=== PATIENT | male | born 1960 | race Caucasian/White ===

== ENCOUNTER 2019-05-03 20:41 | Inpatient (IN) ==
--- OUTSIDE RECORDS SUMMARY | 2019-05-03 20:43 | External Medical Summary | Continuity of Care Document ---
:1960 Author Name Wilver Whitney Address Unavailable Unavailable , Care Team Providers Name Role Phone Unavailable Unavailable Unavailable Nahomy LYONS Unavailable Unavailable Problems Active medical history not documented Allergies and Adverse Reactions Allergy history not documented Medications Medications not documented Procedures Procedures not documented Immunizations Immunizations not documented Plan of Treatment Planned Observations Planned Goals not documented Results No Known Results Results not documented
[2019-05-03] MEDS ORDERED: SODIUM CHLORIDE 0.9% 1000ML 1,000 ML IV ONE (21:58)
[2019-05-03 22:42] LABS: Albumin Level 3.5 gm/dl (3.4-5.0); BUN Creatinine Ratio 16.9 (10-20); Calcium 9.3 mg/dl (8.5-10.1); Creatinine Clr Calc Pharmacy 88.8 ml/min; Est GFR (Non-African American) 77.7; Potassium 4.1 mmol/L (3.5-5.1)
[2019-05-03 22:45] LABS: Albumin Globulin Ratio 1.4 (0.9-2); Bilirubin,Total 0.7 mg/dl (0.2-1); Globulin 2.6 gm/dl (2.5-4.0); Total Protein 6.1 gm/dl (6.4-8.2)
--- NOTE | 2019-05-03 22:49 | XRay Report ---
XR chest 1V portable HISTORY: 59 years-old Male fever, chemo pt acute fever with chest pain. History of lymphoma. COMPARISON: Chest radiograph 09/23/2014, CT abdomen and pelvis 11/27/2018 TECHNIQUE: Portable AP view of the chest FINDINGS: Cardiac silhouette is within normal limits. There is mild bilateral hilar prominence. Right internal jugular Jgajic-v-Eciw catheter noted. Linear subsegmental left basilar atelectasis. No pneumothorax, pleural effusion, focal airspace consolidation or overt pulmonary edema. Bones of the chest appear gr ossly intact. IMPRESSION: No acute process. The above report was generated using voice recognition software. It may contain grammatical, syntax o r spelling errors. Electronically signed by: Darin Hugo M.D. 05/03/2019 10:47 PM
[2019-05-03 23:47] LABS: Appearance Urine Clear (Clear); Bilirubin Urine Negative (Negative); Blood Urine Negative (Negative); Color Urine Yellow; Glucose Urine UA Negative (Negative); Ketones Urine Negative (Negative); Leukocyte Esterase Urine Negative (Negative); Nitrite Urine Negative (Negative); Protein Urine Negative (Negative); Specific Gravity Urine 1.015 (1.000-1.030); Urobilinogen Urine Negative (Negative)
[2019-05-04 00:01] LABS: Dohle Bodies 3+; Giant Platelets 2+; Hematocrit (blood only) 24.8 % (42-52); Hemoglobin 8.4 g/dL (14.0-18.0); Mean Corpuscular Hgb Conc 33.9 g/dL (32-36); Mean Corpuscular Volume 83.8 fL (80-100); Mean Platelet Volume 9.4 fL (7.4-10.4); Nucleated RBC # (auto) 0.15 K/uL (0-0); Nucleated RBC % (auto) 19.1 %; Platelet Count 73 K/uL (130-400); Platelet Estimate Decreased (Normal); Polychromasia 1+; RDW Coefficient of Variation 18.2 % (11.5-14.5); RDW Standard Deviation 55.5 fL (36.4-46.3); Red Blood Count 2.96 M/uL (4.7-6.1); Tear Drop Cells 2+; White Blood Count 0.77 K/uL (4.8-10.8)
[2019-05-04 00:05] LABS: ALC (manual) 0.32 K/uL (1.2-3.4); Blast # (manual) 0.11 K/uL (0-0); Blast Cells % (manual) 13.9 %; Eosinophils # (manual) 0.01 K/uL (0-0.5); Eosinophils % (manual) 0.9 %; Lymphocytes # (manual) 0.32 K/uL (1.2-3.4); Lymphocytes % (manual) 41.8 %; Metamyelocytes # (manual) 0.01 K/uL (0-0); Metamyelocytes % (manual) 0.9 %; Monocytes # (manual) 0.15 K/uL (0.11-0.59); Monocytes % (manual) 19.4 %; Promyelocytes # (manual) 0.09 K/uL (0-0); Promyelocytes % (manual) 11.1 %
[2019-05-04] MEDS ORDERED: CEFEPIME 2,000 MG/20 ML VIAL IV STA (00:19)
--- NOTE | 2019-05-04 00:45 | Emergency Department Note ---
History of Present Illness General Chief complaint: Fever Stated complaint: FEVER, CHEMO PT Source: patient Mode of arrival: ambulatory Limitations: no limitations History of Present Illness Maximum Pain Intensity: 4 This patient is a 59-year-old male who presents to the emergency department complaining of a fever. The patient states that he is currently being treated for lymphoma and finished his last cycle of chemotherapy 7 days ago. He states that today, he has been tired but attributed this to not sleeping last night. He states that 2 hours prior to arrival, he began to feel achiness throughout his joints, mild abdominal discomfort and a mild headache. His checked his temperature and it was initially 100.8 F then increased to 101.4 F. He was given 1 g of Tylenol. Patient states he is being treated for diffuse large B- cell lymphoma by oncology at [facility] in [place]. He does state he received Neulasta last week. Patient states he is actually feeling better at this time. He denies any recent urinary symptoms, or cough. He has some shortness of breath but states that this has been stable for him. Home Medications Home Medications Medication Instructions Recorded Confirmed Type acetaminophen [Tylenol Extra 1,000 mg PO UD 11/27/18 05/03/19 History Strength] acyclovir [Zovirax] 400 mg PO BID 05/03/19 05/03/19 History allopurinol [Zyloprim] 300 mg PO DAILY 05/03/19 05/03/19 History fluconazole [Diflucan] 200 mg PO UD 05/03/19 05/03/19 History ondansetron HCl 8 mg PO UD PRN 05/03/19 05/03/19 History pantoprazole [Protonix] 40 mg PO DAILY 05/03/19 05/03/19 History prochlorperazine maleate 10 mg PO Q6 PRN 05/03/19 05/03/19 History [Compazine] sulfamethoxazole-trimethoprim 1 tab PO DAILY 05/03/19 05/03/19 History [Bactrim DS] tamsulosin [Flomax] 0.4 mg PO HS 05/03/19 05/03/19 History Allergies Allergy/AdvReac Type Severity Reaction Status Date / Time ADHESIVE Allergy Unknown d Uncoded 05/03/19 23:16 CAT,DOGS,POLLEN,DANDER Allergy Unknown Seasonal Uncoded 05/03/19 23:16 Past Med/Surg History Medical History Lymphoma (Chronic) DLBC Colon polyps (Resolved) Family History Other No pertinent family history in first degree relatives Social History Preferred Language: Irish Communication Ability: Effective Correctional Casework Specialist Required: No Beliefs That Will Affect Care: None Current Living Situation: Spouse Other Information That Helps Us Care for You: No Feels Safe at Home: Yes Safety Concerns: Feels Safe At This Time Smoking Status: Never smoker Do You Dip or Chew Tobacco: No Second Hand Exposure: No Tobacco Cessation Education Requested by Patient: No Hx Alcohol Use: Yes Alcohol type: other Hx Substance Use: No Review of Systems A total of 10 systems reviewed and were otherwise negative Physical Exam Vital Signs Vital Signs - 24 hr 05/03/19 20:43 05/03/19 22:08 05/03/19 23:18 Temperature 37.1 C 36.4 C L Temperature Source Oral Oral Sepsis Recent Fever Within 48 Hours Yes Sepsis New/Unexplained Change in Mental Status No Sepsis Action Taken by Nursing No Action Required Pulse Rate 106 H Pulse Rate [Apical] 97 H 85 Pulse Rhythm [Apical] Regular Pulse Strength [Apical] Normal Respiratory Rate 18 16 19 Respiratory Effort / Characteristics Non-Labored Respiratory Depth Normal Respiratory Pattern Regular Blood Pressure 113/68 Blood Pressure [Right Arm] 117/69 111/66 Blood Pressure Mean 83 Blood Pressure Mean [Right Arm] 85 81 Blood Pressure Position [Right Arm] Lying Pulse Oximetry 97 93 96 Oxygen Delivery Method Room Air Room Air 05/04/19 01:01 05/04/19 01:03 Temperature 36.4 C L Temperature Source Oral Sepsis Recent Fever Within 48 Hours Sepsis New/Unexplained Change in Mental Status Sepsis Action Taken by Nursing Pulse Rate Pulse Rate [Apical] 96 H Pulse Rhythm [Apical] Pulse Strength [Apical] Respiratory Rate 19 Respiratory Effort / Characteristics Respiratory Depth Respiratory Pattern Blood Pressure Blood Pressure [Right Arm] 114/58 L Blood Pressure Mean Blood Pressure Mean [Right Arm] 76 Blood Pressure Position [Right Arm] Pulse Oximetry 94 Oxygen Delivery Method Room Air VITALS: Vitals are noted on the nurse's note and reviewed by myself. Vital signs stable. GENERAL: This is a 59-year-old male, chronically ill-appearing but in no acute distress. SKIN: The skin was without rashes. EARS: External auditory canals clear, tympanic membranes pearly davis without erythema or effusion bilaterally. EYES: Pupils equal round and reactive to light and accommodation. Conjunctivae without injection, sclerae without icterus. MOUTH: Mucous membranes moist. Tonsils are not enlarged. Pharynx without erythema or exudate. NECK: Supple without nuchal rigidity. No lymphadenopathy. HEART: Regular rate and rhythm without murmurs gallops or rubs. LUNGS: Clear to auscultation bilaterally without wheezes, rales or rhonchi. ABDOMEN: Positive bowel sounds x 4. Soft, minimal generalized tenderness to palpation. No guarding or rebound tenderness. NEURO: Patient was alert and oriented to person place and time. Course Reevaluation(s) Reevaluation #1: Patient was reevaluated and findings discussed. He is agreeable to admission. Consultations Consultation #1: Dr. Torres - pathology I spoke with the pathologist, Dr. Knox, who was concerned that the patient had a large amount of blasts circulating in the blood as well as promyelocytes. She is unsure if this is a response to the Neulasta versus acute promyelocytic leukemia. Consultation #2: Dr. Wilson - hematology [facility] Dr. Wilson recommends admission for the neutropenic fever and feels that the blasts are likely a response to the Neulasta. He agrees with giving cefepime. Consultation #3: Dr. Cutler - [facility] [place] Administered Medications Vancomycin HCl 2,500 mg/ (Sodium Chloride) 550 mls @ 200 mls/hr IV ONE ONE Stop: 05/04/19 07:14 Last Admin: 05/04/19 05:13 Dose: 200 mls/hr Documented by: [id number] Discontinued Medications Sodium Chloride (Nss 1000ml) 1,000 mls @ 999 mls/hr IV .Q1H1M ONE Stop: 05/03/19 22:58 Last Infusion: 05/03/19 23:10 Dose: 0 mls/hr Documented by: [id number] Admin: 05/03/19 22:09 Dose: 999 mls/hr Documented by: [id number] Cefepime HCl (Maxipime) 2,000 mg in 20 mls @ 5 mls/min IV NOW STA; Protocol Stop: 05/04/19 00:22 Last Admin: 05/04/19 00:55 Dose: 5 mls/min Documented by: [id number] Piperacillin Sod/Tazobactam (Sod 4.5 gm/ Dextrose) 120 mls @ 235 mls/hr IV ONE ONE; Protocol Stop: 05/04/19 04:40 Last Infusion: 05/04/19 05:12 Dose: 0 mls/hr Documented by: [id number] Admin: 05/04/19 04:45 Dose: 235 mls/hr Documented by: [id number] Medical Decision Making Differential Diagnosis Differential diagnosis includes neutropenic fever, sepsis, UTI, pneumonia, among others. Home Medications Current Medication List: was personally reviewed by me Laboratory Data Attestation: I reviewed the patient's lab results. Result diagrams: 05/03/19 22:14 05/03/19 22:14 Lab Results 05/03/19 05/03/19 05/03/19 Range/Units 22:14 22:14 22:14 WBC 0.77 L* (4.8-10.8) K/uL RBC 2.96 L (4.7-6.1) M/uL Hgb 8.4 L (14.0-18.0) g/dL Hct 24.8 L (42-52) % MCV 83.8 (80-100) fL MCH 28.4 (25-34) pg MCHC 33.9 (32-36) g/dL RDW Std Deviation 55.5 H (36.4-46.3) fL RDW Coeff of Svitlana 18.2 H (11.5-14.5) % Plt Count 73 L (130-400) K/uL MPV 9.4 (7.4-10.4) fL Absolute Nucleated RBC 0.15 H (0-0) K/uL Nucleated RBC % (auto) 19.1 % Neutrophils % (Manual) 12.0 % Lymphocytes % (Manual) 41.8 % Monocytes % (Manual) 19.4 % Eosinophils % (Manual) 0.9 % Metamyelocytes % (Man) 0.9 % Promyelocytes % (Man) 11.1 % Blast Cells % (Manual) 13.9 % Neutrophils # (Manual) 0.09 L (1.4-6.5) K/uL Total Absolute Neuts 0.09 L* (1.4-6.5) K/uL Lymphocytes # (Manual) 0.32 L (1.2-3.4) K/uL Total Abs Lymphocytes 0.32 L (1.2-3.4) K/uL Monocytes # (Manual) 0.15 (0.11-0.59) K/uL Eosinophils # (Manual) 0.01 (0-0.5) K/uL Metamyelocytes # (Man) 0.01 H (0-0) K/uL Promyelocytes # (Man) 0.09 H (0-0) K/uL Blast Cells # (Man) 0.11 H (0-0) K/uL Blood Smear Review Dohle Bodies 3+ Platelet Estimate Decreased L (Normal) Giant Platelets 2+ Polychromasia 1+ Tear Drop Cells 2+ Sodium 140 (136-145) mmol/L Potassium 4.1 (3.5-5.1) mmol/L Chloride 108 H (98-107) mmol/L Carbon Dioxide 24 (21-32) mmol/L Anion Gap 8.0 (3-11) BUN 18 (7-18) mg/dl Creatinine 1.04 (0.6-1.4) mg/dl Est Cr Clr Drug Dosing 88.8 ml/min Est GFR ( Amer) 90.0 Est GFR (Non-Af Amer) 77.7 BUN/Creatinine Ratio 16.9 (10-20) Glucose 111 H (70-99) mg/dl Lactate 2.2 H* (0.4-2.0) mmol/L Calcium 9.3 (8.5-10.1) mg/dl Total Bilirubin 0.7 (0.2-1) mg/dl AST 18 (15-37) U/L ALT 33 (12-78) U/L Alkaline Phosphatase 102 (45-117) U/L Total Protein 6.1 L (6.4-8.2) gm/dl Albumin 3.5 (3.4-5.0) gm/dl Globulin 2.6 (2.5-4.0) gm/dl Albumin/Globulin Ratio 1.4 (0.9-2) Urine Color Urine Appearance (Clear) Urine pH (4.5-7.5) Ur Specific [place] (1.000-1.030) Urine Protein (Negative) Urine Glucose (UA) (Negative) Urine Ketones (Negative) Urine Blood (Negative) Urine Nitrite (Negative) Urine Bilirubin (Negative) Urine Urobilinogen (Negative) Ur Leukocyte Esterase (Negative) 05/03/19 Range/Units 23:26 WBC (4.8-10.8) K/uL RBC (4.7-6.1) M/uL Hgb (14.0-18.0) g/dL Hct (42-52) % MCV (80-100) fL MCH (25-34) pg MCHC (32-36) g/dL RDW Std Deviation (36.4-46.3) fL RDW Coeff of Svitlana (11.5-14.5) % Plt Count (130-400) K/uL MPV (7.4-10.4) fL Absolute Nucleated RBC (0-0) K/uL Nucleated RBC % (auto) % Neutrophils % (Manual) % Lymphocytes % (Manual) % Monocytes % (Manual) % Eosinophils % (Manual) % Metamyelocytes % (Man) % Promyelocytes % (Man) % Blast Cells % (Manual) % Neutrophils # (Manual) (1.4-6.5) K/uL Total Absolute Neuts (1.4-6.5) K/uL Lymphocytes # (Manual) (1.2-3.4) K/uL Total Abs Lymphocytes (1.2-3.4) K/uL Monocytes # (Manual) (0.11-0.59) K/uL Eosinophils # (Manual) (0-0.5) K/uL Metamyelocytes # (Man) (0-0) K/uL Promyelocytes # (Man) (0-0) K/uL Blast Cells # (Man) (0-0) K/uL Blood Smear Review Dohle Bodies Platelet Estimate (Normal) Giant Platelets Polychromasia Tear Drop Cells Sodium (136-145) mmol/L Potassium (3.5-5.1) mmol/L Chloride (98-107) mmol/L Carbon Dioxide (21-32) mmol/L Anion Gap (3-11) BUN (7-18) mg/dl Creatinine (0.6-1.4) mg/dl Est Cr Clr Drug Dosing ml/min Est GFR ( Amer) Est GFR (Non-Af Amer) BUN/Creatinine Ratio (10-20) Glucose (70-99) mg/dl Lactate (0.4-2.0) mmol/L Calcium (8.5-10.1) mg/dl Total Bilirubin (0.2-1) mg/dl AST (15-37) U/L ALT (12-78) U/L Alkaline Phosphatase (45-117) U/L Total Protein (6.4-8.2) gm/dl Albumin (3.4-5.0) gm/dl Globulin (2.5-4.0) gm/dl Albumin/Globulin Ratio (0.9-2) Urine Color Yellow Urine Appearance Clear (Clear) Urine pH 8.0 H (4.5-7.5) Ur Specific [place] 1.015 (1.000-1.030) Urine Protein Negative (Negative) Urine Glucose (UA) Negative (Negative) Urine Ketones Negative (Negative) Urine Blood Negative (Negative) Urine Nitrite Negative (Negative) Urine Bilirubin Negative (Negative) Urine Urobilinogen Negative (Negative) Ur Leukocyte Esterase Negative (Negative) Imaging Data Attestation: I personally reviewed and interpreted this imaging study as follows: Radiologist's Impression: XR chest 1V portable HISTORY: 59 years-old Male fever, chemo pt acute fever with chest pain. History of lymphoma. COMPARISON: Chest radiograph 09/23/2014, CT abdomen and pelvis 11/27/2018 TECHNIQUE: Portable AP view of the chest FINDINGS: Cardiac silhouette is within normal limits. There is mild bilateral hilar prominence. Right internal jugular Yhyxle-w-Cika catheter noted. Linear subsegmental left basilar atelectasis. No pneumothorax, pleural effusion, focal airspace consolidation or overt pulmonary edema. Bones of the chest appear grossly intact. IMPRESSION: No acute process. Blood Pressure Blood Pressure Findings: Normal blood pressure Blood Pressure Disposition: did not require urgent referral MDM Narrative The patient is a 59-year-old male who presents today complaining of a fever. Patient recently finished his last cycle of chemotherapy for lymphoma. Patient had reported fever of 101.4 F prior to arrival here, although of note he is now afebrile. He did take a dose of Tylenol prior to arrival here. Labs revealed a white blood cell count of 0.77, ANC 0.09. I did speak with the pathologist, who reviewed the peripheral smear and noted that there were 13% blasts as well as promyelocytes. She was unsure if this was a response to Neulasta versus acute promyelocytic leukemia. I did speak with the patient's public health professor at [facility] in [place] who felt this was likely a response to the Neulasta and recommended continuing to follow labs. Patient was given a dose of cefepime here and admitted for the neutropenic fever. [facility] and [facility] The patient's case was discussed with Dr. Leo, who agreed with my evaluation and treatment plan. Impression & Plan Neutropenic fever Discharge Plan Visit Data *Final* Discharge Date/Time: 05/04/19 04:05 Chief Complaint: Fever Stated Complaint: FEVER, CHEMO PT ED Provider: Porfirio Leo ED Midlevel Provider: Liberty Bennett Discharge Problem: Neutropenic fever Patient Disposition: Admitted As Inpatient Discharge Instructions Interventions: ED Discharge Assessment Last Done: 05/04/19 04:05
--- NOTE | 2019-05-04 02:39 | History & Physical Report ---
Date of Service May 04, 2019 Assessment & Plan (1) Neutropenic fever: Neutropenic fever/pancytopenia due to chemotherapy/diffuse large B-cell lymphoma- Neutropenic precautions. Broad-spectrum antibody coverage with vancomycin IV and Zosyn IV. Continue prophylaxis with acyclovir 400 mg p.o. twice daily, allopurinol 300 mg p.o. daily, fluconazole 20 mg p.o. daily. Hold Bactrim DS. Case was discussed by ED with oncology at [facility], will continue to communicate throughout admission. Follow all cultures. Continue IV fluids Present on Admission?: Yes (2) Pancytopenia due to chemotherapy: See above Follow serial laboratories. Present on Admission?: Yes (3) BPH (benign prostatic hyperplasia): Continue tamsulosin 0.4 mg at bedtime Present on Admission?: Yes (4) GERD (gastroesophageal reflux disease): Continue pantoprazole 40 mg daily Present on Admission?: Yes History of Present Illness Chief Complaint: The patient presents to the emergency department with complaint of a fever after finishing his last cycle of chemotherapy 7 days ago. Primary Care Provider: Ragini Curry MD The patient is a 59-year-old male with a past medical history significant for diffuse large B-cell lymphoma, undergoing chemotherapy at [facility] in [place], having finished his last cycle of chemotherapy 7 days ago. He developed fatigue today, and then generalized joint achiness with abdominal discomfort and a mild headache. His checked his temperature, and was found to be 100.8 F, and then increased to 101.4 F, was given 1 g of Tylenol, then presents to the emergency department for assessment. Allergies Allergy/AdvReac Type Severity Reaction Status Date / Time ADHESIVE Allergy Unknown d Uncoded 05/03/19 23:16 CAT,DOGS,POLLEN,DANDER Allergy Unknown Seasonal Uncoded 05/03/19 23:16 Home Medications Home Medications Medication Instructions Recorded Confirmed Type acetaminophen [Tylenol Extra 1,000 mg PO UD 11/27/18 05/03/19 History Strength] acyclovir [Zovirax] 400 mg PO BID 05/03/19 05/03/19 History allopurinol [Zyloprim] 300 mg PO DAILY 05/03/19 05/03/19 History fluconazole [Diflucan] 200 mg PO UD 05/03/19 05/03/19 History ondansetron HCl 8 mg PO UD PRN 05/03/19 05/03/19 History pantoprazole [Protonix] 40 mg PO DAILY 05/03/19 05/03/19 History prochlorperazine maleate 10 mg PO Q6 PRN 05/03/19 05/03/19 History [Compazine] sulfamethoxazole-trimethoprim 1 tab PO DAILY 05/03/19 05/03/19 History [Bactrim DS] tamsulosin [Flomax] 0.4 mg PO HS 05/03/19 05/03/19 History Past Med/Surg History Medical History Lymphoma (Chronic) DLBC Colon polyps (Resolved) Family History Other No pertinent family history in first degree relatives Social History Preferred Language: [place]ican Feels Safe at Home: Yes Smoking Status: Never smoker Review of Systems Review of Systems: The patient denies chest pain, palpitations, shortness of breath, dyspnea on exertion, cough, lower extremity swelling, sore throat, sweats, nausea, vomiting, diarrhea , constipation, blood in urine or stool, dysuria, urinary frequency or urgency, memory loss, loss of consciousness, rash, abnormal bruising or bleeding, imbalance, focal weakness, numbness or tingling in arms or legs, or night sweats. The review of systems is otherwise negative other than for that already noted above, and at least 10 systems have been reviewed. Physical Exam Physical Exam: The patient is awake, alert and oriented 3, normocephalic and atraumatic, lying in bed and in no acute distress. HEENT--PERRL, EOMI, mucous membranes and oropharynx dry. Neck--supple. No JVD. No bruits. Thyroid normal, trachea midline, no adenopathy. Heart--normal S1 and S2. No murmurs, rubs or gallops. Lungs--decreased breath sounds throughout. Abdomen--normal bowel sounds and soft. Nontender. Nondistended. Extremities--no cyanosis or clubbing. No edema. There are good distal pulses b/l. Dermatologic--normal skin turgor, normal color, no abnormal lymph nodes, no rash. Neurologic--cranial nerves II through XII grossly intact. Rheumatologic--normal range of motion. Psychiatric--very fatigued. Results & Data Vital Signs (Past 12 Hours) Vital Signs Temp Pulse Pulse Resp BP BP Pulse Ox 05/04/19 02:31 78 16 123/76 98 05/04/19 01:03 96 H 19 114/58 L 94 05/04/19 01:01 97.5 F L 05/03/19 23:18 97.5 F L 85 19 111/66 96 05/03/19 22:08 97 H 16 117/69 93 05/03/19 20:43 98.8 F 106 H 18 113/68 97 Laboratory Results Laboratory Results WBC 0.77 K/uL (4.8-10.8) L* 05/03/19 22:14 RBC 2.96 M/uL (4.7-6.1) L 05/03/19 22:14 Hgb 8.4 g/dL (14.0-18.0) L 05/03/19 22:14 Hct 24.8 % (42-52) L 05/03/19 22:14 MCV 83.8 fL (80-100) 05/03/19 22:14 MCH 28.4 pg (25-34) 05/03/19 22:14 MCHC 33.9 g/dL (32-36) 05/03/19 22:14 RDW Std Deviation 55.5 fL (36.4-46.3) H 05/03/19 22:14 RDW Coeff of Svitlana 18.2 % (11.5-14.5) H 05/03/19 22:14 Plt Count 73 K/uL (130-400) L 05/03/19 22:14 MPV 9.4 fL (7.4-10.4) 05/03/19 22:14 Absolute Nucleated RBC 0.15 K/uL (0-0) H 05/03/19 22:14 Nucleated RBC % (auto) 19.1 % 05/03/19 22:14 Neutrophils % (Manual) 12.0 % 05/03/19 22:14 Lymphocytes % (Manual) 41.8 % 05/03/19 22:14 Monocytes % (Manual) 19.4 % 05/03/19 22:14 Eosinophils % (Manual) 0.9 % 05/03/19 22:14 Metamyelocytes % (Man) 0.9 % 05/03/19 22:14 Promyelocytes % (Man) 11.1 % 05/03/19 22:14 Blast Cells % (Manual) 13.9 % 05/03/19 22:14 Neutrophils # (Manual) 0.09 K/uL (1.4-6.5) L 05/03/19 22:14 Total Absolute Neuts 0.09 K/uL (1.4-6.5) L* 05/03/19 22:14 Lymphocytes # (Manual) 0.32 K/uL (1.2-3.4) L 05/03/19 22:14 Total Abs Lymphocytes 0.32 K/uL (1.2-3.4) L 05/03/19 22:14 Monocytes # (Manual) 0.15 K/uL (0.11-0.59) 05/03/19 22:14 Eosinophils # (Manual) 0.01 K/uL (0-0.5) 05/03/19 22:14 Metamyelocytes # (Man) 0.01 K/uL (0-0) H 05/03/19 22:14 Promyelocytes # (Man) 0.09 K/uL (0-0) H 05/03/19 22:14 Blast Cells # (Man) 0.11 K/uL (0-0) H 05/03/19 22:14 Blood Smear Review 05/03/19 22:14 Dohle Bodies 3+ 05/03/19 22:14 Platelet Estimate Decreased (Normal) L 05/03/19 22:14 Giant Platelets 2+ 05/03/19 22:14 Polychromasia 1+ 05/03/19 22:14 Tear Drop Cells 2+ 05/03/19 22:14 Sodium 140 mmol/L (136-145) 05/03/19 22:14 Potassium 4.1 mmol/L (3.5-5.1) 05/03/19 22:14 Chloride 108 mmol/L (98-107) H 05/03/19 22:14 Carbon Dioxide 24 mmol/L (21-32) 05/03/19 22:14 Anion Gap 8.0 (3-11) 05/03/19 22:14 BUN 18 mg/dl (7-18) 05/03/19 22:14 Creatinine 1.04 mg/dl (0.6-1.4) 05/03/19 22:14 Est Cr Clr Drug Dosing 88.8 ml/min 05/03/19 22:14 Est GFR ( Amer) 90.0 05/03/19 22:14 Est GFR (Non-Af Amer) 77.7 05/03/19 22:14 BUN/Creatinine Ratio 16.9 (10-20) 05/03/19 22:14 Glucose 111 mg/dl (70-99) H 05/03/19 22:14 Lactate 2.2 mmol/L (0.4-2.0) H* 05/03/19 22:14 Calcium 9.3 mg/dl (8.5-10.1) 05/03/19 22:14 Total Bilirubin 0.7 mg/dl (0.2-1) 05/03/19 22:14 AST 18 U/L (15-37) 05/03/19 22:14 ALT 33 U/L (12-78) 05/03/19 22:14 Alkaline Phosphatase 102 U/L (45-117) 05/03/19 22:14 Total Protein 6.1 gm/dl (6.4-8.2) L 05/03/19 22:14 Albumin 3.5 gm/dl (3.4-5.0) 05/03/19 22:14 Globulin 2.6 gm/dl (2.5-4.0) 05/03/19 22:14 Albumin/Globulin Ratio 1.4 (0.9-2) 05/03/19 22:14 Urine Color Yellow 05/03/19 23:26 Urine Appearance Clear (Clear) 05/03/19 23:26 Urine pH 8.0 (4.5-7.5) H 05/03/19 23:26 Ur Specific [place] 1.015 (1.000-1.030) 05/03/19 23:26 Urine Protein Negative (Negative) 05/03/19 23:26 Urine Glucose (UA) Negative (Negative) 05/03/19 23:26 Urine Ketones Negative (Negative) 05/03/19 23:26 Urine Blood Negative (Negative) 05/03/19 23:26 Urine Nitrite Negative (Negative) 05/03/19 23:26 Urine Bilirubin Negative (Negative) 05/03/19 23:26 Urine Urobilinogen Negative (Negative) 05/03/19 23:26 Ur Leukocyte Esterase Negative (Negative) 05/03/19 23:26 Diagnostic Findings [facility], [place] [phone] XRay Report Patient: JUSTIN WALKER Date: 05/03/19 MR#: [id number] Acct ID:[id number]: Date: 1960City Zip: [place] [address] Age: 59Location: ED Sex: M Room/Bed: Att Phy: Diagnosis: FEVER, CHEMO PT Kelsy Phy: PCP,NO Service Date: 05/03/19 Fam Phy: Interpreting Phy: Sandip Hugo Admit Phy: Ordering Phy: Liberty Bennett PA-C cc: ~ XR chest 1V portable HISTORY: 59 years-old Male fever, chemo pt acute fever with chest pain. History of lymphoma. COMPARISON: Chest radiograph 09/23/2014, CT abdomen and pelvis 11/27/2018 TECHNIQUE: Portable AP view of the chest FINDINGS: Cardiac silhouette is within normal limits. There is mild bilateral hilar prominence. Right internal jugular [id number]-[id number] catheter noted. Linear subsegmental left basilar atelectasis. No pneumothorax, pleural effusion, focal airspace consolidation or overt pulmonary edema. Bones of the chest appear grossly intact. IMPRESSION: No acute process. The above report was generated using voice recognition software. It may contain grammatical, syntax or spelling errors. Electronically signed by: Darin Hugo M.D. 05/03/2019 10:47 PM Dictated: [id number]/03/[id number] Transcribed: 05/03/192244 Code Status & VTE Plan Code Status Full code VTE Prophylaxis Plan VTE Prophylaxis will be ordered: Yes PG Care Time/CCT Total # of Minutes Spent Total Time Spent with Patient: Total time spent is greater than 50% in coordination of care (as documented) at patient's floor/unit and/or counseling patient:
[2019-05-04] MEDS ORDERED: VANCOMYCIN CONSULT ACTIVE PRN (04:10)
[2019-05-04] MEDS ORDERED: PIPERACILLIN/TAZOBACTAM 4.5 GM in DEXTROSE 5% 100 ML IV ONE (04:10)
[2019-05-04] MEDS ORDERED: ALUMINUM/MAGNESIUM SUSP 30 ML UDC PO PRN (04:10)
[2019-05-04] MEDS ORDERED: PROCHLORPERAZINE MALEATE 10 MG TAB PO PRN (04:10)
[2019-05-04] MEDS ORDERED: ONDANSETRON INJ 2 MG/ML 2 ML VIAL IV PRN (04:10)
[2019-05-04] MEDS ORDERED: ACETAMINOPHEN 325 MG TAB PO PRN (04:10)
[2019-05-04] MEDS ORDERED: VANCOMYCIN HCL 1,000 MG in SODIUM CHLORIDE 0.9% 250 ML IV SCH (04:10)
[2019-05-04] MEDS ORDERED: PIPERACILL/TAZOBAC CONSULT ACTIVE PRN (04:10)
[2019-05-04] MEDS ORDERED: ACETAMINOPHEN 1,000 MG/100 ML VIAL IV PRN (04:10)
[2019-05-04] MEDS ORDERED: MAGNESIUM HYDROXIDE SUSP 30 ML UDC PO PRN (04:10)
[2019-05-04] MEDS ORDERED: VANCOMYCIN HCL 2,250 MG in SODIUM CHLORIDE 0.9% 500 ML IV ONE (04:30)
[2019-05-04] MEDS ORDERED: VANCOMYCIN HCL 2,500 MG in SODIUM CHLORIDE 0.9% 500 ML IV ONE (04:30)
[2019-05-04] MEDS: PANTOprazole 40 MG TAB PO SCH (08:20)
[2019-05-04] MEDS: ALLOPURINOL 300 MG TAB PO SCH (08:20)
[2019-05-04] MEDS: ACYCLOVIR 200 MG CAP PO SCH ×2 (08:20→20:31)
[2019-05-04] MEDS: FLUCONAZOLE 100 MG TAB PO SCH (08:20)
[2019-05-04] MEDS ORDERED: PIPERACILLIN/TAZOBACTAM 4.5 GM in DEXTROSE 5% 100 ML IV SCH (10:00)
[2019-05-04 10:49] LABS: Hematocrit (blood only) 24.4 % (42-52); Hemoglobin 8.2 g/dL (14.0-18.0); Mean Corpuscular Hgb Conc 33.6 g/dL (32-36); Mean Corpuscular Volume 83.6 fL (80-100); RDW Coefficient of Variation 18.5 % (11.5-14.5); RDW Standard Deviation 56.7 fL (36.4-46.3); Red Blood Count 2.92 M/uL (4.7-6.1); White Blood Count 1.48 K/uL (4.8-10.8)
[2019-05-04 10:55] LABS: Mean Platelet Volume 9.5 fL (7.4-10.4); Platelet Count 67 K/uL (130-400)
[2019-05-04 11:05] LABS: BUN Creatinine Ratio 12.7 (10-20); Calcium 9.2 mg/dl (8.5-10.1); Creatinine Clr Calc Pharmacy 97.8 ml/min; Est GFR (African American) 101.7; Est GFR (Non-African American) 87.8; Phosphorus 4.1 mg/dl (2.5-4.9); Potassium 3.9 mmol/L (3.5-5.1)
[2019-05-04 11:46] LABS: Dohle Bodies 2+; Giant Platelets 3+; Polychromasia 1+; Tear Drop Cells 1+
--- NOTE | 2019-05-04 11:48 | Communication Note ---
Date of Service: May 04, 2019 Patient admitted this morning. Patient is feeling better, patient has no symptoms of cough, nausea, vomitiing, dysuria. Patient reports feeling back to his baseline. Patient was just admitted this AM. Lactic acid was also elevated. Will continue to check. Will continue IVF and antibiotics, will consult ID as well. Will await 24 hour period of patient being afebrile before discharging patient.
[2019-05-04 11:58] LABS: ALC (manual) 0.37 K/uL (1.2-3.4); Basophils # (manual) 0.04 K/uL (0-0.2); Blast # (manual) 0.04 K/uL (0-0); Eosinophils # (manual) 0.01 K/uL (0-0.5); Lymphocytes # (manual) 0.37 K/uL (1.2-3.4); Metamyelocytes # (manual) 0.12 K/uL (0-0); Monocytes # (manual) 0.31 K/uL (0.11-0.59); Myelocytes # (manual) 0.13 K/uL (0-0); Nucleated RBC # (auto) 0.16 K/uL (0-0); Nucleated RBC % (auto) 10.8 %; Promyelocytes # (manual) 0.24 K/uL (0-0)
[2019-05-04] MEDS: SODIUM CHLORIDE 0.9% 1000ML 1,000 ML IV SCH ×2 (11:58→22:19)
--- NOTE | 2019-05-04 14:53 | Infectious Disease Consult ---
Date of Consultation May 04, 2019 Assessment & Plan (1) Neutropenic fever: 59-year-old male with known B-cell lymphoma on chemotherapy now with neutropenic fever without localizing findings otherwise. Agree with IV antibiotics pending final culture results and hopefully recovery of white blood cell count. Will follow. History of Present Illness Reason for Consultation: Neutropenic fever Attending Physician: Marko Coates History of Present Illness 59-year-old male with known B-cell lymphoma on chemotherapy, typically with neutropenia second week of chemotherapy, now presents with 1 day history of fever and chills, and found to be significantly neutropenic. Has been started on IV Zosyn, blood cultures are negative to date. Patient feeling better today and currently afebrile. Denies any localizing complaints. No significant travel history. Does have daughter with respiratory tract infection last week. Allergies Allergy/AdvReac Type Severity Reaction Status Date / Time ADHESIVE Allergy Unknown d Uncoded 05/03/19 23:16 CAT,DOGS,POLLEN,DANDER Allergy Unknown Seasonal Uncoded 05/03/19 23:16 Home Medications Home Medications Medication Instructions Recorded Confirmed Type acetaminophen [Tylenol Extra 1,000 mg PO UD 11/27/18 05/03/19 History Strength] acyclovir [Zovirax] 400 mg PO BID 05/03/19 05/03/19 History allopurinol [Zyloprim] 300 mg PO DAILY 05/03/19 05/03/19 History fluconazole [Diflucan] 200 mg PO UD 05/03/19 05/03/19 History ondansetron HCl 8 mg PO UD PRN 05/03/19 05/03/19 History pantoprazole [Protonix] 40 mg PO DAILY 05/03/19 05/03/19 History prochlorperazine maleate 10 mg PO Q6 PRN 05/03/19 05/03/19 History [Compazine] sulfamethoxazole-trimethoprim 1 tab PO DAILY 05/03/19 05/03/19 History [Bactrim DS] tamsulosin [Flomax] 0.4 mg PO HS 05/03/19 05/03/19 History Patient History Medical History Lymphoma (Chronic) DLBC Colon polyps (Resolved) Family History Other No pertinent family history in first degree relatives Social History Preferred Language: Japanese Communication Ability: Effective 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 Required: No Beliefs That Will Affect Care: None Current Living Situation: Spouse Other Information That Helps Us Care for You: No Feels Safe at Home: Yes Safety Concerns: Feels Safe At This Time Smoking Status: Never smoker Do You Dip or Chew Tobacco: No Second Hand Exposure: No Tobacco Cessation Education Requested by Patient: No Hx Alcohol Use: Yes Alcohol type: other Hx Substance Use: No Review of Systems Review of Systems: All systems reviewed & are unremarkable except as noted in HPI & below Physical Exam Constitutional: WD/WN, vitals as above comfortable; no acute distress Eyes: PERRL, conjunctivae normal, anicteric sclerae ENMT: external ear and nose normal, oropharynx normal Neck: trachea midline, no thyromegaly neck nontender Respiratory: normal respiratory effort, lungs clear to auscultation normal percussion; does not use accessory muscles Cardiovascular: Rate/Rhythm: regular rate and regular rhythm Heart Sounds: normal S1 and normal S2; no gallop, no murmur and no cardiac rub Vessels: normal peripheral pulses; no JVD Gastrointestinal (Abdomen): normal bowel sounds, soft, nontender, no hepatosplenomegaly Musculoskeletal: no cyanosis or clubbing, extremities motor strength 5/5 Spine: thoracic spine normal to inspection and lumbar spine normal to inspection; no cervical spinal tenderness Skin: no rashes, warm and dry normal turgor; no lesions A port site appears without evidence of infection Neurologic: patellar DTR's 2+ bilat, sensation intact no focal motor def icits Psychiatric: A+Ox3, euthymic affect Orientation: cooperative Lymphatic: no cervical or axillary lymphadenopathy no inguinal lymphadenopathy Results & Data Vital Signs (Past 12 Hours) Vital Signs Temp Pulse Pulse Resp BP BP BP 05/04/19 10:55 36.7 C 82 18 118/79 05/04/19 07:36 36.5 C 78 18 125/76 05/04/19 04:22 36.6 C 84 16 124/84 05/04/19 04:05 75 16 130/81 05/04/19 03:32 36.5 C 85 20 122/83 Pulse Ox 05/04/19 10:55 98 05/04/19 07:36 97 05/04/19 04:22 97 05/04/19 04:05 97 05/04/19 03:32 95 Laboratory Results Short CBC 05/03/19 05/04/19 Range/Units 22:14 10:35 WBC 0.77 L* 1.48 L (4.8-10.8) K/uL Hgb 8.4 L 8.2 L (14.0-18.0) g/dL Hct 24.8 L 24.4 L (42-52) % Plt Count 73 L 67 L (130-400) K/uL BMP 05/03/19 05/04/19 22:14 10:35 Sodium 140 140 Potassium 4.1 3.9 Chloride 108 H 108 H Carbon Dioxide 24 24 BUN 18 12 Creatinine 1.04 0.94 Glucose 111 H 112 H Calcium 9.3 9.2 Liver Function 05/03/19 Range/Units 22:14 Total Bilirubin 0.7 (0.2-1) mg/dl AST 18 (15-37) U/L ALT 33 (12-78) U/L Alkaline Phosphatase 102 (45-117) U/L Albumin 3.5 (3.4-5.0) gm/dl Urine 05/03/19 Range/Units 23:26 Urine Color Yellow Urine Appearance Clear (Clear) Urine pH 8.0 H (4.5-7.5) Ur Specific [place] 1.015 (1.000-1.030) Urine Protein Negative (Negative) Urine Glucose (UA) Negative (Negative) Diagnostic Findings XR chest 1V portable HISTORY: 59 years-old Male fever, chemo pt acute fever with chest pain. History of lymphoma. COMPARISON: Chest radiograph 09/23/2014, CT abdomen and pelvis 11/27/2018 TECHNIQUE: Portable AP view of the chest FINDINGS: Cardiac silhouette is within normal limits. There is mild bilateral hilar prominence. Right internal jugular [id number] catheter noted. Linear subsegmental left basilar atelectasis. No pneumothorax, pleural effusion, focal airspace consolidation or overt pulmonary edema. Bones of the chest appear grossly intact. IMPRESSION: No acute process. The above report was generated using voice recognition software. It may contain grammatical, syntax or spelling errors. Electronically signed by: Darin Hugo M.D.
--- NOTE | 2019-05-04 15:55 | Pharmacy Report ---
Pharmacy Abx Initial Consult - Date of Service May 04, 2019 - Pharmacy Dosing Scope Date of Consult: 05/04/19 Consultation requested by: Dr. Cutler Pharmacy is consulted to initiate Vancomycin and Zosyn IV dosing therapy, order appropriate labs and adjust drug dose/frequency. - Subjective The patient is a 59 year old M admitted on 05/04/19 02:22. - Objective Height: 5 ft 10 in Weight: 97.3 kg Vital Signs (Past 12hrs): Vital Signs Temp Pulse Pulse Resp BP BP BP 05/04/19 10:55 36.7 C 82 18 118/79 05/04/19 07:36 36.5 C 78 18 125/76 05/04/19 04:22 36.6 C 84 16 124/84 05/04/19 04:05 75 16 130/81 Pulse Ox 05/04/19 10:55 98 05/04/19 07:36 97 05/04/19 04:22 97 05/04/19 04:05 97 Lab Results (24hrs): Laboratory Tests (24 Hours) 05/04/19 05/04/19 05/03/19 10:35 10:35 22:14 WBC 1.48 L Creatinine 0.94 1.04 Est Cr Clr Drug Dosing 97.8 88.8 05/03/19 22:14 WBC 0.77 L* Creatinine Est Cr Clr Drug Dosing Micro Results: 05/03/19 22:28 Aerobic Blood Culture - Pending Blood Anaerobic Blood Culture - Pending 05/03/19 22:14 Aerobic Blood Culture - Pending Blood Anaerobic Blood Culture - Pending - Risk Factors for Resistance * Immunocompromised (chemotherapy, immunomodulators) - Assessment & Plan Assessment 59 year old M presenting to the emergency department complaining of a fever, achiness throughout his joints and mild abdominal discomfort. The patient states that he is currently being treated for lymphoma and finished his last cycle of chemotherapy 7 days ago. Neutropenic fever/pancytopenia due to chemo. Plan Vancomycin and Zosyn for treatment of Neutropenic Fever Vancomycin IV * Estimated PK Parameters: Vd 0.61 L/kg, Ji 0.078 hr-1, t1/2 8.9 hr * Loading dose: 2500 mg (25 mg/kg) * Maintenance dose: 1500 mg IV (15 mg/kg) every 12 hours * Goal trough level for Neutropenic fever: ~15 mcg/mL * Trough level ordered for 05/06/19 at 0330 Piperacillin/tazobactam * 4.5 g bolus administered over 30 minutes, then 3.375 g IV extended infusion every 8 hours for CrCl greater than 20 mL/min Pharmacy will continue to follow and will adjust dose/frequency as necessary. Thank you.
[2019-05-04] MEDS: VANCOMYCIN HCL 1,500 MG in SODIUM CHLORIDE 0.9% 500 ML IV SCH (16:34)
[2019-05-04] MEDS: PIPERACILLIN/TAZOBACTAM 3.375 GM in DEXTROSE 5% 100 ML IV SCH (18:30)
[2019-05-04] MEDS ORDERED: TAMSULOSIN HCL 0.4 MG CAP PO SCH (21:00)
[2019-05-05] MEDS: PIPERACILLIN/TAZOBACTAM 3.375 GM in DEXTROSE 5% 100 ML IV SCH ×2 (02:02→09:12)
[2019-05-05] MEDS: VANCOMYCIN HCL 1,500 MG in SODIUM CHLORIDE 0.9% 500 ML IV SCH (04:29)
[2019-05-05 04:37] LABS: BUN Creatinine Ratio 9.4 (10-20); Calcium 8.7 mg/dl (8.5-10.1); Creatinine Clr Calc Pharmacy 92.8 ml/min; Est GFR (African American) 95.5; Est GFR (Non-African American) 82.4; Potassium 3.8 mmol/L (3.5-5.1)
[2019-05-05 06:00] LABS: Hemoglobin 7.8 g/dL (14.0-18.0); Mean Corpuscular Hgb Conc 32.5 g/dL (32-36); Mean Corpuscular Volume 86.3 fL (80-100); Nucleated RBC # (auto) 0.17 K/uL (0-0); Nucleated RBC % (auto) 3.7 %; RDW Coefficient of Variation 18.7 % (11.5-14.5); RDW Standard Deviation 58.3 fL (36.4-46.3); Red Blood Count 2.78 M/uL (4.7-6.1); White Blood Count 4.65 K/uL (4.8-10.8)
[2019-05-05 06:07] LABS: Mean Platelet Volume 9.9 fL (7.4-10.4); Platelet Count 71 K/uL (130-400)
[2019-05-05 06:35] LABS: ALC (manual) 0.46 K/uL (1.2-3.4); Blast # (manual) 0.08 K/uL (0-0); Blast Cells % (manual) 1.8 %; Dohle Bodies 1+; Eosinophils # (manual) 0.08 K/uL (0-0.5); Eosinophils % (manual) 1.8 %; Lymphocytes # (manual) 0.46 K/uL (1.2-3.4); Lymphocytes % (manual) 9.9 %; Metamyelocytes # (manual) 0.54 K/uL (0-0); Metamyelocytes % (manual) 11.7 %; Monocytes # (manual) 0.75 K/uL (0.11-0.59); Monocytes % (manual) 16.2 %; Myelocytes # (manual) 0.88 K/uL (0-0); Myelocytes % (manual) 18.9 %; Neutrophils % (manual) 33.4 %; Polychromasia 1+; Promyelocytes # (manual) 0.29 K/uL (0-0); Promyelocytes % (manual) 6.3 %; Tear Drop Cells 1+
[2019-05-05] MEDS: FLUCONAZOLE 100 MG TAB PO SCH (09:06)
[2019-05-05] MEDS: ACYCLOVIR 200 MG CAP PO SCH (09:06)
[2019-05-05] MEDS: ALLOPURINOL 300 MG TAB PO SCH (09:07)
[2019-05-05] MEDS: PANTOprazole 40 MG TAB PO SCH (09:07)
[2019-05-05 09:34] LABS: Ferritin 349.7 ng/ml (8-388)
[2019-05-06] MEDS ORDERED: VANCOMYCIN TROUGH ONE (03:30)
--- NOTE | 2019-05-09 07:54 | Discharge Summary ---
Date of Service May 05, 2019 Admission HPI Per Admitting Provider The patient is a 59-year-old male with a past medical history significant for diffuse large B-cell lymphoma, undergoing chemotherapy at [facility] in [place], having finished his last cycle of chemotherapy 7 days ago. He developed fatigue today, and then generalized joint achiness with abdominal discomfort and a mild headache. His checked his temperature, and was found to be 100.8 F, and then increased to 101.4 F, was given 1 g of Tylenol, then presents to the emergency department for assessment. Principal Diagnosis Neutropenic fever Discharge Exam The patient is awake, alert and oriented 3, normocephalic and atraumatic, lying in bed and in no acute distress. HEENT--PERRL, EOMI, mucous membranes and oropharynx dry. Neck--supple. No JVD. No bruits. Thyroid normal, trachea midline, no adenopathy. Heart--normal S1 and S2. No murmurs, rubs or gallops. Lungs--decreased breath sounds throughout. Abdomen--normal bowel sounds and soft. Nontender. Nondistended. Extremities--no cyanosis or clubbing. No edema. There are good distal pulses b/l. Dermatologic--normal skin turgor, normal color, no abnormal lymph nodes, no rash. Neurologic--cranial nerves II through XII grossly intact. Rheumatologic--normal range of motion. Discharge Data Allergies Allergy/AdvReac Type Severity Reaction Status Date / Time ADHESIVE Allergy Unknown d Uncoded 05/03/19 23:16 CAT,DOGS,POLLEN,DANDER Allergy Unknown Seasonal Uncoded 05/03/19 23:16 Consultations 05/04/19 01:40 ED Decision to Admit Stat 05/04/19 04:10 Consult Case Management - Discharge Planning Routine 05/04/19 11:30 Consult Infectious Diseases Routine Hospital Course (1) Neutropenic fever: Neutropenic fever/pancytopenia due to chemotherapy/diffuse large B-cell lymphoma- Neutropenic precautions. Broad-spectrum antibody coverage with vancomycin IV and Zosyn IV. Continue prophylaxis with acyclovir 400 mg p.o. twice daily, allopurinol 300 mg p.o. daily, fluconazole 20 mg p.o. daily. Case was discussed by ED with oncology at [facility], will continue to communicate throughout admission. Follow all cultures. On day of discharge, patient improved. Will recommend to continue on bactrim as an outpatient, as well as antifungal and acyclovir. Patient will continue on cipro and augmentin for neutropenic fever for an additional 4 days. Update: Cultures are negative (2) Pancytopenia due to chemotherapy: See above Follow serial laboratories. (3) BPH (benign prostatic hyperplasia): Continue tamsulosin 0.4 mg at bedtime (4) GERD (gastroesophageal reflux disease): Continue pantoprazole 40 mg daily Total Time Total Time Spent Total Time Spent (In Minutes): 32 Total Time Includes: Examination of the Patient, Discharge Planning and Medication Reconciliation Discharge Plan Discharge Items Patient Disposition: Home - Self-Care Reason For Visit: NEUTROPENIC FEVER Discharge Diagnosis: Neutropenic fever Discharge Goals: Decrease discomfort Activity: Resume your previous activity Non-emergency contact: Primary Care Provider Call non-emergency contact if: you have any medication questions Follow-up/Referrals: Ragini Curry MD [Primary Care Provider] - Diet: Regular Addtl Provider Instructions: You were diagnosed with a neutropenic fever. You White blood cells were low. You improved with antibiotics and did not have a fever while being in the hospital. You white blood count has normalized and your fever has subsided. Your blood cultures has been negative so far. Will continue antibiotics this evening. It will only be for a short course, an additional 4 days. Recommend close followup with PCP to check white blood count in 2-3 days. Prescriptions: New ciprofloxacin HCl 750 mg tablet 750 mg PO BID Qty: 8 RF: 0 amoxicillin-pot clavulanate [Augmentin] 500-125 mg tablet 2 tab PO BID Qty: 16 RF: 0 Continued acetaminophen [Tylenol Extra Strength] 500 mg Tablet 1,000 mg PO UD RF: 0 ondansetron HCl 8 mg tablet 8 mg PO UD PRN (Reason: Nausea) RF: 0 fluconazole [Diflucan] 200 mg tablet 200 mg PO UD RF: 0 prochlorperazine maleate [Compazine] 10 mg tablet 10 mg PO Q6 PRN (Reason: Nausea) RF: 0 sulfamethoxazole-trimethoprim [Bactrim DS] 800-160 mg tablet 1 tab PO DAILY RF: 0 tamsulosin [Flomax] 0.4 mg capsule 0.4 mg PO HS RF: 0 pantoprazole [Protonix] 40 mg tablet,delayed release (DR/EC) 40 mg PO DAILY RF: 0 allopurinol [Zyloprim] 300 mg tablet 300 mg PO DAILY RF: 0 acyclovir [Zovirax] 200 mg capsule 400 mg PO BID RF: 0 Stand-Alone Forms: [facility] Discharge Orders: Discharge Order (Routine); Ordered 05/05/19 Ordered By: Marko Coates Admission Data Admit Date/Time: 05/04/19 02:22 Attending Provider: Marko Coates Admit Provider: Max Cutler Primary Care Provider: Ragini Curry Other Providers: Jose D Melendez Service: Medical Other Interventions: Discharge Summary Assessment (RN) Last Done: 05/05/19 13:56 DC Date/Time DO NOT enter until pt leaves facility: 05/05/19 14:07
== END 2019-05-05 14:07 | disposition home or self-care (01) | DRG 809 ==
LOC: ED 20:41 → SUATTDRO 05-04 02:22 → 2N 05-04 02:22
DX: K21.9 Gastro-esophageal reflux disease without esophagitis; C83.30 Diffuse large B-cell lymphoma, unspecified site; N40.0 Benign prostatic hyperplasia without lower urinary tract symptoms; Z79.899 Other long term (current) drug therapy; D61.810 Antineoplastic chemotherapy induced pancytopenia; D70.1 Agranulocytosis secondary to cancer chemotherapy; R50.81 Fever presenting with conditions classified elsewhere; T45.1X5A Adverse effect of antineoplastic and immunosuppressive drugs, initial encounter; Z91.048 Other nonmedicinal substance allergy status

== ENCOUNTER 2021-04-27 16:52 | Observation (INO) ==
--- NOTE | 2021-04-27 17:50 | Emergency Department Note ---
Impression & Plan Pancytopenia due to chemotherapy, Rigors ED Provider Note NAME: JUSTIN WALKER AGE: 61 SEX: M : 1960 ARRIVES VIA: Walk-In INFORMANT: Patient, ED PROVIDER(S): Jerson Yanes MD CHIEF COMPLAINT: shaking chills HPI: This 61-year-old male who was in the emergency department on 03/22/2021 for an ileus as well as constipation as well as CLL. This 61-year-old male brought in by his over concerns about shaking chills that the patient has had for the past 3 days. The patient's reports that he is being evaluated by Dr. Velásquez at [facility] and he was just started on a drug of Ibrutinib. Patient's reports that the patient has been having shaking chills. The patient himself denies any other complaints. He denies any chest pain abdominal pain nausea vomiting shortness of breath. He reports he is unsure of what brings the chills on. He reports nothing seems to make them any better or worse. He has not taken anything for them including Tylenol. They called their oncologist at [facility] who directed them to come to the emergency department for a septic work-up. ROS: See above HPI for pertinent positives & negatives. A total of 10 systems reviewed and were otherwise negative. PAST MEDICAL HISTORY: See Below PAST SURGICAL HISTORY: See Below FAMILY HISTORY: See Below SOCIAL HISTORY: See Below HOME MEDICATIONS: See Below ALLERGIES: See Below VITALS: See Below PHYSICAL EXAMINATION: VITAL SIGNS - Vital signs and nursing notes were reviewed. GENERAL - 61-year-old male appearing stated age who is in no acute distress. Tired on Physical exam SKIN - Without rashes. HEAD - NC/AT. EYES - PERRL with EOMI bilaterally. Sclera anicteric. Palpebral conjunctiva pink and moist with no injection noted. EARS - No deformities of external structures noted on gross examination bilaterally. NOSE - Midline and without cyanosis. No epistaxis or purulent drainage noted. Septum midline without deviation or septal hematoma noted. MOUTH/OROPHARYNX - Without perioral cyanosis. Buccal mucosa pink and moist and without leukoplakia. Tongue midline with equal elevation of palate bilaterally. No tonsillar hypertrophy, erythema, or exudates noted. NECK - Neck with FROM. Supple to palpation. lymphadenopathy noted. No nuchal rigidity. CHEST_ Port in place LUNGS - Chest wall symmetric without accessory muscle use, intercostals retractions, or central cyanosis. Normal vesicular breath sounds CTA B/L. No wheezes, rales, or rhonchi appreciated. CARDIAC - RRR with S1/S2. No murmur, rubs, or gallops appreciated. ABDOMEN - Abdominal contour [] without pulsations or visible masses. BS normoactive all four quadrants. No tenderness, palpable masses, hepatosplenomegaly, or ascites noted. EXTREMITIES - No clubbing or peripheral cyanosis. No pretibial edema present. +3/5 radial, posterior tibial, and dorsalis pedis pulses palpated throughout. +5/5 strength noted in UE/LE bilaterally. NEUROLOGIC - Cranial nerves II through XII grossly intact. Sensory intact to light touch throughout. Patellar reflexes +2/4. PSYCH - A&Ox3 and cooperates fully with examiner. Pt is very pleasant and interacts well with examiner. MEDICAL DECISION MAKING: Patient was seen and evaluated as above in room C5. Review was performed of nursing notes and vital signs. I did review pertinent previous visits and patient history. After obtaining a thorough history and physical examination the above work up was performed. Is this 61-year-old male who presents emergency department after 3 days of shaking chills. The patient has been afebrile at home and I will note is afebrile here. His laboratory work reveals pancytopenia. I did discuss his case with [facility] who asked that his ibrutinib be held. They requested that we hold off on broad-spectrum antibiotics. The patient was given fluid here in the emergency department as well as Tylenol. Repeat examination revealed improving the patient's symptoms. I did discuss the case with the hospitalist service who did agree to admit the patient. Chest x-ray was reviewed by me and does not show any evidence of pneumonia congestion or pneumothorax. While in the department, I personally reevaluated the patient several times and each time the patient was found to be resting comfortably. The patient was educated upon management, educated upon todays findings/results, educated upon importance of follow up from today's visit, educated upon symptoms in which to return, had questions answered prior to discharge, verbalized understanding, and was discharged home in good condition. An order was placed for continuous cardiac monitoring. The monitor shows a rate of 69 with Normal SInus rhythm. The patient was evaluated during a period of high volume and high acuity during the global COVID-19 pandemic, and that diagnosis was suspected/considered upon their initial presentation. Their evaluation, treatment and testing was consistent with current guidelines for patients who present with complaints or symptoms that may be related to COVID-19. Patient was seen while provider was wearing PPE. Triage Nursing notes reviewed. Prior medical records reviewed Vital Signs: reviewed and remarkable for no significant abnormalities Differential diagnosis: Sepsis, UTI, pneumonia, metabolic, electrolyte abnormalities, cardiac sources, intracerebral event, toxicologic, neurologic, as well as other pathologies. ER treatment provided: See below Diagnostics interpreted by me: ECG: EKG shows a sinus rhythm with frequent PVC left axis deviation no ST elevation or depression QTC is 422 ventricular rate is 81 EKG is compared to 03/22/2021 PVCs are now present Laboratory studies: As stated above and show below. Imaging studies: See below Consultation(s): Internal Medicine Past Med/Surg History Medical History (Updated 04/28/21 @ 00:10 by Jerson Yanes MD) Colon polyps Lymphoma DLBC Family History Other No pertinent family history in first degree relatives Social History Smoking Status: Never smoker Second Hand Exposure: No; Hx Alcohol Use: Yes Alcohol type: other Hx Substance Use: No Preferred Language: Citizen Of The [place] Communication Ability: Effective Fence Supervisor Required: No Beliefs That Will Affect Care: None Current Living Situation: Spouse and Family Current Living Situation Comment: and daughter Other Information That Helps Us Care for You: No Feels Safe at Home: Yes Safety Concerns: Feels Safe At This Time Assistive Devices: None Allergies Allergies Allergy/AdvReac Type Severity Reaction Status Date / Time cat dander Allergy Intermediate SNEEZING Verified 04/27/21 19:15 CONGESTION dog dander Allergy Intermediate SNEEZING, Verified 04/27/21 19:15 CONGESTION ADHESIVE Allergy Intermediate SKIN Uncoded 04/27/21 19:15 IRRITATION POLLEN Allergy Intermediate ITCHY Uncoded 04/27/21 19:15 EYES, SNEEZING CONGESTION Home Meds Home Medications Medication Instructions Recorded Confirmed fluticasone furoate 100 1 inh INHALATION HS 01/31/21 04/27/21 mcg-vilanterol 25 mcg/dose inhalation powder (Breo Ellipta) acetaminophen 325 mg tablet 325 mg PO Q6H PRN 03/22/21 04/27/21 (Tylenol) acyclovir 800 mg tablet 800 mg PO BID 03/22/21 04/27/21 albuterol sulfate 90 mcg/actuation 2 puff INHALATION Q4H PRN 03/22/21 04/27/21 aerosol inhaler docusate sodium 50 mg capsule 50 mg PO BID 03/22/21 04/27/21 lactulose 10 gram/15 mL oral 30 ml PO TID PRN 03/22/21 04/27/21 solution ondansetron HCl 8 mg tablet 8 mg PO Q8H PRN 03/22/21 04/27/21 cetirizine 10 mg tablet (Zyrtec) 10 mg PO DAILY 04/27/21 04/27/21 ibrutinib 140 mg tablet (Imbruvica) 840 mg PO DAILY 04/27/21 04/27/21 Results & Data (ED) Vital Signs Vital Signs - 24 hr 04/27/21 16:57 04/27/21 19:01 04/27/21 19:13 Temperature 36.9 C Temperature Source Skin Pulse Rate 74 84 Pulse Rate from SpO2 Sensor 84 Respiratory Rate 18 22 Respiratory Effort / Characteristics Non-Labored Spontaneous Blood Pressure 137/77 128/66 Blood Pressure Mean 97 86 Pulse Oximetry 99 99 Oxygen Delivery Method Room Air Sepsis Recent Fever Within 48 Hours No Sepsis New/Unexplained Change in Mental Status No Sepsis Action Taken by Nursing No Action Required 04/27/21 19:30 04/27/21 21:26 Temperature Temperature Source Pulse Rate 84 Pulse Rate from SpO2 Sensor 56 L 80 Respiratory Rate 21 Respiratory Effort / Characteristics Blood Pressure 131/74 Blood Pressure Mean 93 Pulse Oximetry 97 90 Oxygen Delivery Method Sepsis Recent Fever Within 48 Hours Sepsis New/Unexplained Change in Mental Status Sepsis Action Taken by Half-Way Medications Current Medication List: was personally reviewed by me Laboratory Data Attestation: I reviewed the patient's lab results. Result diagrams: 04/27/21 18:34 04/27/21 18:34 Lab Results 04/27/21 04/27/21 04/27/21 Range/Units 18:34 18:34 18:34 WBC 3.69 L (4.8-10.8) K/uL RBC 2.60 L (4.7-6.1) M/uL Hgb 8.4 L (14.0-18.0) g/dL Hct 23.9 L (42-52) % MCV 91.9 (80-100) fL MCH 32.3 (25-34) pg MCHC 35.1 (32-36) g/dL RDW Std Deviation 55.0 H (36.4-46.3) fL RDW Coeff of Svitlana 16.3 H (11.5-14.5) % Plt Count 61 L (130-400) K/uL MPV 10.8 H (7.4-10.4) fL Immature Gran % (Auto) 1.9 % Neut % (Auto) 78.3 % Lymph % (Auto) 6.2 % [place] % (Auto) 13.3 % Eos % (Auto) 0.3 % Baso % (Auto) 0.0 % Neut # (Auto) 2.89 (1.4-6.5) K/uL Lymph # (Auto) 0.23 L (1.2-3.4) K/uL [place] # (Auto) 0.49 (0.11-0.59) K/uL Eos # (Auto) 0.01 (0-0.5) K/uL Baso # (Auto) 0.00 (0-0.2) K/uL Immature Gran # (Auto) 0.07 H (0.00-0.02) K/uL Platelet Estimate Decreased L (Normal) PT 10.6 (9.0-12.0) Seconds INR 1.0 (0.9-1.1) APTT 29.3 (21.0-31.0) Seconds PTT Ratio 1.1 Sodium (136-145) mmol/L Potassium (3.5-5.1) mmol/L Chloride (98-107) mmol/L Carbon Dioxide (21-32) mmol/L Anion Gap (3-11) BUN (7-18) mg/dl Creatinine (0.6-1.4) mg/dl Est Cr Clr Drug Dosing ml/min Est GFR ( Amer) ml/min Est GFR (Non-Af Amer) ml/min BUN/Creatinine Ratio (10-20) Glucose (70-99) mg/dl Lactate (0.4-2.0) mmol/L Calcium (8.5-10.1) mg/dl Magnesium (1.8-2.4) mg/dl Total Bilirubin (0.2-1) mg/dl AST (15-37) U/L ALT (12-78) U/L Alkaline Phosphatase (45-117) U/L Troponin I (0-0.045) ng/ml Total Protein (6.4-8.2) gm/dl Albumin (3.4-5.0) gm/dl Globulin (2.5-4.0) gm/dl Albumin/Globulin Ratio (0.9-2) Procalcitonin (0-0.5) ng/ml Urine Color Urine Appearance (Clear) Urine pH (4.5-7.5) Ur Specific Thicket (1.000-1.030) Urine Protein (Negative) Urine Glucose (UA) (Negative) Urine Ketones (Negative) Urine Blood (Negative) Urine Nitrite (Negative) Urine Bilirubin (Negative) Urine Urobilinogen (Negative) Ur Leukocyte Esterase (Negative) COVID-19 Eval Order SARS-CoV-2 (PCR) (Negative) Blood Type A Positive Antibody Screen NEGATIVE 04/27/21 04/27/21 04/27/21 Range/Units 18:34 18:34 18:34 WBC (4.8-10.8) K/uL RBC (4.7-6.1) M/uL Hgb (14.0-18.0) g/dL Hct (42-52) % MCV (80-100) fL MCH (25-34) pg MCHC (32-36) g/dL RDW Std Deviation (36.4-46.3) fL RDW Coeff of Svitlana (11.5-14.5) % Plt Count (130-400) K/uL MPV (7.4-10.4) fL Immature Gran % (Auto) % Neut % (Auto) % Lymph % (Auto) % [place] % (Auto) % Eos % (Auto) % Baso % (Auto) % Neut # (Auto) (1.4-6.5) K/uL Lymph # (Auto) (1.2-3.4) K/uL [place] # (Auto) (0.11-0.59) K/uL Eos # (Auto) (0-0.5) K/uL Baso # (Auto) (0-0.2) K/uL Immature Gran # (Auto) (0.00-0.02) K/uL Platelet Estimate (Normal) PT (9.0-12.0) Seconds INR (0.9-1.1) APTT (21.0-31.0) Seconds PTT Ratio Sodium 139 (136-145) mmol/L Potassium 3.2 L (3.5-5.1) mmol/L Chloride 109 H (98-107) mmol/L Carbon Dioxide 23 (21-32) mmol/L Anion Gap 7.0 (3-11) BUN 16 (7-18) mg/dl Creatinine 1.19 (0.6-1.4) mg/dl Est Cr Clr Drug Dosing 74.4 ml/min Est GFR ( Amer) 75.4 ml/min Est GFR (Non-Af Amer) 65.1 ml/min BUN/Creatinine Ratio 13.2 (10-20) Glucose 124 H (70-99) mg/dl Lactate 0.9 (0.4-2.0) mmol/L Calcium 8.8 (8.5-10.1) mg/dl Magnesium 1.9 (1.8-2.4) mg/dl Total Bilirubin 1.6 H (0.2-1) mg/dl AST 31 (15-37) U/L ALT 33 (12-78) U/L Alkaline Phosphatase 96 (45-117) U/L Troponin I < 0.015 (0-0.045) ng/ml Total Protein 6.3 L (6.4-8.2) gm/dl Albumin 3.4 (3.4-5.0) gm/dl Globulin 2.9 (2.5-4.0) gm/dl Albumin/Globulin Ratio 1.2 (0.9-2) Procalcitonin 0.36 (0-0.5) ng/ml Urine Color Urine Appearance (Clear) Urine pH (4.5-7.5) Ur Specific [place] (1.000-1.030) Urine Protein (Negative) Urine Glucose (UA) (Negative) Urine Ketones (Negative) Urine Blood (Negative) Urine Nitrite (Negative) Urine Bilirubin (Negative) Urine Urobilinogen (Negative) Ur Leukocyte Esterase (Negative) COVID-19 Eval Order SARS-CoV-2 (PCR) (Negative) Blood Type Antibody Screen 04/27/21 04/27/21 04/27/21 Range/Units 19:15 19:15 20:10 WBC (4.8-10.8) K/uL RBC (4.7-6.1) M/uL Hgb (14.0-18.0) g/dL Hct (42-52) % MCV (80-100) fL MCH (25-34) pg MCHC (32-36) g/dL RDW Std Deviation (36.4-46.3) fL RDW Coeff of Svitlana (11.5-14.5) % Plt Count (130-400) K/uL MPV (7.4-10.4) fL Immature Gran % (Auto) % Neut % (Auto) % Lymph % (Auto) % [place] % (Auto) % Eos % (Auto) % Baso % (Auto) % Neut # (Auto) (1.4-6.5) K/uL Lymph # (Auto) (1.2-3.4) K/uL [place] # (Auto) (0.11-0.59) K/uL Eos # (Auto) (0-0.5) K/uL Baso # (Auto) (0-0.2) K/uL Immature Gran # (Auto) (0.00-0.02) K/uL Platelet Estimate (Normal) PT (9.0-12.0) Seconds INR (0.9-1.1) APTT (21.0-31.0) Seconds PTT Ratio Sodium (136-145) mmol/L Potassium (3.5-5.1) mmol/L Chloride (98-107) mmol/L Carbon Dioxide (21-32) mmol/L Anion Gap (3-11) BUN (7-18) mg/dl Creatinine (0.6-1.4) mg/dl Est Cr Clr Drug Dosing ml/min Est GFR ( Amer) ml/min Est GFR (Non-Af Amer) ml/min BUN/Creatinine Ratio (10-20) Glucose (70-99) mg/dl Lactate (0.4-2.0) mmol/L Calcium (8.5-10.1) mg/dl Magnesium (1.8-2.4) mg/dl Total Bilirubin (0.2-1) mg/dl AST (15-37) U/L ALT (12-78) U/L Alkaline Phosphatase (45-117) U/L Troponin I (0-0.045) ng/ml Total Protein (6.4-8.2) gm/dl Albumin (3.4-5.0) gm/dl Globulin (2.5-4.0) gm/dl Albumin/Globulin Ratio (0.9-2) Procalcitonin (0-0.5) ng/ml Urine Color Dark Yellow Urine Appearance Clear (Clear) Urine pH 6.0 (4.5-7.5) Ur Specific [place] 1.020 (1.000-1.030) Urine Protein Negative (Negative) Urine Glucose (UA) Negative (Negative) Urine Ketones Trace H (Negative) Urine Blood Negative (Negative) Urine Nitrite Negative (Negative) Urine Bilirubin Negative (Negative) Urine Urobilinogen Negative (Negative) Ur Leukocyte Esterase Negative (Negative) COVID-19 Eval Order Covid19 at [facility] SARS-CoV-2 (PCR) NEGATIVE (Negative) Blood Type Antibody Screen Administered Medications Acyclovir (Acyclovir 400 Mg Tab) 800 mg PO BID LINDSAY Stop: 05/28/21 00:00 Last Admin: 04/28/21 00:25 Dose: 800 mg Documented by: [id number] Sodium Chloride (Nss 1000ml) 1,000 mls @ 75 mls/hr IV .[id number] LINDSAY Stop: 05/27/21 23:44 Last Admin: 04/28/21 00:25 Dose: 75 mls/hr Documented by: [id number] Discontinued Medications Al Hydrox/Mg Hydrox/Simethicone (Gi Cocktail Ed Use) 1 dose PO ONE ONE Stop: 04/27/21 18:17 Last Admin: 04/27/21 18:47 Dose: 1 dose Documented by: [id number] Sodium Chloride (Nss 1000ml) 1,000 mls @ 999 mls/hr IV .[id number] ONE Stop: 04/27/21 20:52 Last Infusion: 04/27/21 21:27 Dose: 0 mls/hr Documented by: [id number] Admin: 04/27/21 20:12 Dose: 999 mls/hr Documented by: [id number] Imaging Data Radiologist's Impression: Chest X-Ray 04/27/21 18:04 XR chest 1V portable CLINICAL HISTORY: SEPSIS COMPARISON STUDY: 01/31/2021 FINDINGS: The cardiac and mediastinal contours remain stable. There is a right- sided A-Port catheter. There is no failure. There is no focal pulmonary consolidation. There are no pleural effusions.[ IMPRESSION: No active disease in the chest. ACT 112: Negative or not required by law. Electronically signed by: Wes Arthur M.D. 04/27/2021 6:57 PM Discharge Plan Visit Data Chief Complaint: Illness Stated Complaint: chills, shaking, fatigue ED Provider: Jerson Yanes Discharge Problem: Pancytopenia due to chemotherapy, Rigors Patient Disposition: Admitted As Inpatient Discharge Instructions Interventions: ED Discharge Assessment Last Done: 04/27/21 23:18
[2021-04-27] MEDS ORDERED: GI COCKTAIL ED USE PO ONE (18:16)
[2021-04-27 18:46] LABS: Hematocrit (blood only) 23.9 % (42-52); Hemoglobin 8.4 g/dL (14.0-18.0); Mean Corpuscular Hemoglobin 32.3 pg (25-34); Mean Corpuscular Hgb Conc 35.1 g/dL (32-36); Mean Corpuscular Volume 91.9 fL (80-100); RDW Coefficient of Variation 16.3 % (11.5-14.5); White Blood Count 3.69 K/uL (4.8-10.8)
[2021-04-27 18:56] LABS: Partial Thromboplastin Ratio 1.1; Partial Thromboplastin Time 29.3 Seconds (21.0-31.0); Prothrombin Time 10.6 Seconds (9.0-12.0)
--- NOTE | 2021-04-27 18:59 | XRay Report ---
XR chest 1V portable CLINICAL HISTORY: SEPSIS COMPARISON STUDY: 01/31/2021 FINDINGS: The cardiac and mediastinal contours remain stable. There is a right-sided A-Port catheter. There is no failure. There is no focal pulmonary consolidation. There are no pleural effusions.[ IMPRESSION: No active disease in the chest. ACT 112: Negative or not required by law. Electronically signed by: Wes Arthur M.D. 04/27/2021 6:57 PM
[2021-04-27 19:04] LABS: Alanine Aminotransferase 33 U/L (12-78); Albumin Level 3.4 gm/dl (3.4-5.0); Aspartate Aminotransferase 31 U/L (15-37); BUN Creatinine Ratio 13.2 (10-20); Blood Urea Nitrogen 16 mg/dl (7-18); Calcium 8.8 mg/dl (8.5-10.1); Carbon Dioxide 23 mmol/L (21-32); Chloride 109 mmol/L (98-107); Creatinine Clr Calc Pharmacy 74.4 ml/min; Est GFR (African American) 75.4 ml/min; Est GFR (Non-African American) 65.1 ml/min; Glucose 124 mg/dl (70-99); Magnesium 1.9 mg/dl (1.8-2.4); Potassium 3.2 mmol/L (3.5-5.1); Sodium 139 mmol/L (136-145)
[2021-04-27 19:09] LABS: Albumin Globulin Ratio 1.2 (0.9-2); Alkaline Phosphatase 96 U/L (45-117); Bilirubin,Total 1.6 mg/dl (0.2-1); Globulin 2.9 gm/dl (2.5-4.0); Total Protein 6.3 gm/dl (6.4-8.2); Troponin I < 0.015 ng/ml (0-0.045)
[2021-04-27 19:12] LABS: Eosinophils # (auto) 0.01 K/uL (0-0.5); Eosinophils % (auto) 0.3 %; Immature Granulocytes # (auto) 0.07 K/uL (0.00-0.02); Immature Granulocytes % (auto) 1.9 %; Lymphocytes # (auto) 0.23 K/uL (1.2-3.4); Lymphocytes % (auto) 6.2 %; Mean Platelet Volume 10.8 fL (7.4-10.4); Monocytes # (auto) 0.49 K/uL (0.11-0.59); Monocytes % (auto) 13.3 %; Neutrophils # (auto) 2.89 K/uL (1.4-6.5); Neutrophils % (auto) 78.3 %; Platelet Count 61 K/uL (130-400); Platelet Estimate Decreased (Normal)
[2021-04-27] MEDS ORDERED: SODIUM CHLORIDE 0.9% 1000ML 1,000 ML IV ONE (19:52)
[2021-04-27 20:25] LABS: Appearance Urine Clear (Clear); Bilirubin Urine Negative (Negative); Blood Urine Negative (Negative); Color Urine Dark Yellow; Glucose Urine UA Negative (Negative); Ketones Urine Trace (Negative); Leukocyte Esterase Urine Negative (Negative); Nitrite Urine Negative (Negative); Protein Urine Negative (Negative); Urobilinogen Urine Negative (Negative)
[2021-04-27] MEDS ORDERED: ACETAMINOPHEN 325 MG TAB PO PRN (23:40)
[2021-04-27] MEDS ORDERED: POLYETHYLENE (MIRALAX) 17 GM PACK PO PRN (23:40)
[2021-04-27] MEDS ORDERED: ONDANSETRON INJ 2 MG/ML 2 ML VIAL IV PRN (23:40)
[2021-04-27] MEDS ORDERED: ALBUTEROL HFA 8 GM INHALER INH PRN (23:40)
[2021-04-27] MEDS ORDERED: NITROGLYCERIN SL 0.4 MG/TAB TAB SL PRN (23:40)
[2021-04-27] MEDS ORDERED: LACTULOSE SYRUP 30 GM/45 ML UDP PO PRN (23:48)
[2021-04-27] MEDS ORDERED: ONDANSETRON 8MG OD TAB PO PRN (23:48)
[2021-04-28] MEDS ORDERED: HEPARIN 100 UNIT/ML 5ML FLUSH FLUSH PRN (00:24)
[2021-04-28] MEDS: ACYCLOVIR 400 MG TAB PO SCH ×3 (00:25→20:28)
[2021-04-28] MEDS: SODIUM CHLORIDE 0.9% 1000ML 1,000 ML IV SCH ×2 (00:25→13:29)
--- NOTE | 2021-04-28 01:35 | History and Physical Report ---
DATE OF ADMISSION: 04/27/2021 CHIEF COMPLAINT: Illness. HISTORY OF PRESENT ILLNESS: This is a 61-year-old male with past medical history significant for diffuse large cell B-cell lymphoma, history of pancytopenia, status post autologous bone marrow transplantation, history of GI bleed, history of low testosterone, history of sleep apnea, on CPAP, history of asthma mild persistent, hypokalemia, hyperbilirubinemia, history of metabolic alkalosis, history of REM[place], history of BPH. The patient was getting chemo from [facility], but his lymphoma recurred and he is having a brain lesion, and at that time it was decided that he is a candidate for CAR-T therapy and transferred his care to the hem/onc at [facility]. As per the hem/onc from [facility] notes, in 1999, he was diagnosed with left testicular lymphoma, treated with left orchiectomy and radiation, CHOP 6 cycles plus IT methotrexate x6. In 11/2018, he was found to have a right renal mass, and biopsy of renal mass showed diffuse large cell B-cell lymphoma, and he had chemo for that. In 01/2021, he was admitted for short-term memory loss, confusion. CT and MRI demonstrated edema and enhancement in the splenium of the corpus callosum, left greater than right, and 1 cm focus in the left subinsular region. Brain biopsy showed atypical B cell infiltrate with B-cell lymphoma. He also developed acute renal failure from his chemo and he has transferred his care to hem/onc at [facility] and plan was to start him on CAR-T therapy . Meanwhile, he was placed on bridging chemotherapy of Imbruvica around 10 days ago. Before that, he was doing okay, but since then he is having weakness, poor appetite, some ambulatory dysfunction, some dizziness while walking, some nausea and also shaking chills, which prompted him to come to the ER today. Here in the ER, the lab work showing pancytopenia, but he is afebrile. Chest x-ray and urinalysis were okay. ER physician talked to his oncologist at [facility], Dr. Stephon Velásquez, and was advised for no antibiotics, but to hold his Imbruvica and monitor in the hospital. Currently, the patient is resting comfortably, hemodynamically stable. is in the room, helping with the history. Denies any fevers. Has some chronic headaches since he was diagnosed with a lesion in the brain, but it is tolerable. He says his right ear is somewhat blocked mostly from the wax. No blurred visions. Currently, no runny nose, no sore throat. Has occasional dry cough, mostly from his allergies. Last night, he had some shortness of breath and he has to use his inhaler. Currently, no shortness of breath, no difficulty swallowing. Appetite is down. No chest pain. Was nauseous. No abdominal pain. Somewhat constipated, but no blood in the stools or black stools. No hematuria, no swelling in the legs. Currently, hemodynamics are stable. ALLERGIES: CAT DANDER, DOG DANDER, ADHESIVES, POLLEN. PAST MEDICAL HISTORY: As mentioned above. PAST SURGICAL HISTORY: Bronchoscopy, colonoscopy, EGD, partial orchiectomy, stereotactic brain biopsy. MEDICATIONS: Currently, the patient is on Tylenol 325 mg p.o. q.6 hours p.r.n., acyclovir 800 mg p.o. b.i.d., albuterol 2 puffs inhalation q.4 hours p.r.n., Zyrtec 10 mg p.o. daily, Colace 50 mg p.o. b.i.d., Breo Ellipta 1 inhalation at bedtime, Imbruvica 840 mg p.o. daily, lactulose 30 mL p.o. q.i.d. p.r.n., Zofran 8 mg p.o. q.8 hours p.r.n. FAMILY HISTORY: Significant for maternal grandfather had brain cancer, father had prostate cancer. SOCIAL HISTORY: . No smoking. Alcohol, 1 beer and 1 wine per week. No drug use. REVIEW OF SYMPTOMS: As per HPI. Rest of the review of systems is negative. PHYSICAL EXAMINATION: GENERAL: The patient is of moderate build, not in acute distress. VITAL SIGNS: Temperature 36.9, pulse 84, respiratory rate 21, blood pressure 131/74, oxygen 97% on room air. HEENT: Pupils equal, round and reactive to light. Right ear wax seen.Oral mucosa moist. NECK: No JVD, no neck masses. CARDIOVASCULAR: S1 and S2 heard. Regular rate and rhythm. No murmur, no gallop. CHEST: Right-sided A port seen. RESPIRATORY SYSTEM: Normal AP diameter. No accessory muscle use. No wheezing, no crackles. ABDOMEN: Soft, bowel sounds present, nontender, no distention. CENTRAL NERVOUS SYSTEM: Alert and oriented. No facial droop seen. Speech is clear. Moves extremities. EXTREMITIES: No edema, no erythema. LABORATORY DATA: WBC 3.6, hemoglobin 8.4, hematocrit 23.9, platelets 61. PT 10.6, INR 1, APTT 29.3. Sodium 139, potassium 3.2, chloride 109, bicarbonate 23, BUN 16, creatinine 1.1, serum glucose 124, lactate 0.9, calcium 8.8, magnesium 1.9, total bilirubin 1.6, AST 31, ALT 33, alkaline phosphatase 96. Troponin I less than 0.015. Procalcitonin 0.36. Urinalysis negative. SARS-CoV-2 PCR negative. IMAGING: Chest x-ray: No acute findings. EKG: Sinus rhythm with frequent PVCs at a rate of 81, no acute ST-T changes seen. ASSESSMENT AND PLAN: This is a 61-year-old male who presents with ongoing weakness, dizziness, nausea and some shaking chills. 1. Shaking chills, weakness, nausea, poor appetite, mostly secondary to the patient's starting of chemotherapy, Imbruvica. The patient is getting this Imbruvica bridging chemotherapy while he is preparing to get CAR-T therapy at [facility]. Emergency Room physician talked to Dr. Stephon Velásquez heme/onco at [facility], was told to hold the Imbruvica and monitor in the hospital. No antibiotics for now. We will wait for cultures to come back. We will place him on gentle fluids. Monitor in med-telemetry and we will call Dr. Stephon Velásquez in the a.m. with the patient's status in the morning with followup laboratories. 2. Pancytopenia, most likely from ongoing chemo and also from his diffuse B- cell lymphoma. We will follow repeat laboratories. 3. Hypokalemia. We will replace. 4. Diffuse B-cell lymphoma, some brain lesion, currently under the care of hematology/oncology at [facility], Dr. Stephon Velásquez. Plan is for CAR-T therapy. 5. Constipation. Resume home stool softeners. 6. History of asthma, mild, persistent. Continue home inhalers. 7. History of sleep apnea, on CPAP. 8. Mild elevation of bilirubin. This is chronic. 9. Deep venous thrombosis prophylaxis. Sequential compression devices as the patient has thrombocytopenia. DISPOSITION: Closely monitor in the med-tele. PT, OT prior to discharge. Social service to help with discharge planning. Level 1, full code. likes to be called with updates. Job ID: [id number] MTDD
[2021-04-28 05:44] LABS: Hematocrit (blood only) 23.4 % (42-52); Hemoglobin 8.1 g/dL (14.0-18.0); Mean Corpuscular Hgb Conc 34.6 g/dL (32-36); Mean Corpuscular Volume 92.5 fL (80-100); RDW Coefficient of Variation 16.4 % (11.5-14.5); RDW Standard Deviation 55.6 fL (36.4-46.3); Red Blood Count 2.53 M/uL (4.7-6.1); White Blood Count 2.24 K/uL (4.8-10.8)
[2021-04-28 05:48] LABS: Mean Platelet Volume 11.2 fL (7.4-10.4); Platelet Count 62 K/uL (130-400)
[2021-04-28 06:14] LABS: Eosinophils # (auto) 0.01 K/uL (0-0.5); Eosinophils % (auto) 0.4 %; Giant Platelets 1+; Immature Granulocytes # (auto) 0.07 K/uL (0.00-0.02); Immature Granulocytes % (auto) 3.1 %; Lymphocytes # (auto) 0.39 K/uL (1.2-3.4); Lymphocytes % (auto) 17.4 %; Monocytes # (auto) 0.19 K/uL (0.11-0.59); Monocytes % (auto) 8.5 %; Neutrophils # (auto) 1.58 K/uL (1.4-6.5); Neutrophils % (auto) 70.6 %
[2021-04-28 06:19] LABS: BUN Creatinine Ratio 13.3 (10-20); Calcium 8.6 mg/dl (8.5-10.1); Creatinine Clr Calc Pharmacy 85.9 ml/min; Est GFR (African American) 89.8 ml/min; Est GFR (Non-African American) 77.5 ml/min; Magnesium 1.9 mg/dl (1.8-2.4); Potassium 3.5 mmol/L (3.5-5.1)
[2021-04-28] MEDS: DOCUSATE SODIUM 100 MG CAP PO SCH ×2 (08:17→20:29)
[2021-04-28] MEDS: CETIRIZINE HCL 10 MG TABLET PO SCH (08:17)
--- NOTE | 2021-04-28 16:14 | Electrocardiogram Report ---
Test Reason : Blood Pressure : / mmHG Vent. Rate : 081 BPM Atrial Rate : 081 BPM P-R Int : 192 ms QRS Dur : 108 ms QT Int : 364 ms P-R-T Axes : 033 -42 062 degrees QTc Int : 422 ms Sinus rhythm with frequent Premature ventricular complexes Left axis deviation Abnormal ECG When compared with ECG of 22-MAR-2021 16:30, Premature ventricular complexes are now Present Criteria for Anterior infarct are no longer Present QT has shortened Confirmed by Johan Sue ([id number]) on 04/28/2021 4:14:18 PM Referred By: REFERRED SELF Confirmed By:Johan Sue
--- NOTE | 2021-04-28 17:39 | Hospitalist Progress Note ---
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 Has been getting Imbruvica for the last 10 days and plan to start CART therapy as per oncologist in [facility] Remained hemodynamically stable and afebrile on admission Did not have any signs of infection Discussed with oncologist in [facility] and was advised to monitor for now Clinically little bit better Await blood culture (2) Fatigue: Plan: Likely secondary to chemotherapy and is complicated by metastatic large B-cell lymphoma (3) Pancytopenia due to chemotherapy: Plan: Secondary to chemotherapy Blood counts remained low but stable We will monitor CBC and PRP (4) Lymphoma: Plan: History of diffuse large B-cell lymphoma 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 History of renal mass status post biopsy which showed large B-cell lymphoma and History of brain lesion with biopsy-proven B-cell lymphoma Has been under care of oncologist in [facility] (5) GERD (gastroesophageal reflux disease): Plan: Continue PPI Other medical conditions including Sleep apnea Asthma BPH-remains stable Admission and Anticipated Discharge Date Admission Date: April 27, 2021 Subjective 04/28/2021 The patient was seen and examined in medical telemetry unit He has history of diffuse B-cell lymphoma with brain lesion and has been getting new chemotherapy agent with Imbruvica Was admitted yesterday with shaking chills and weakness following chemotherapy Has been feeling a little bit better today without any significant symptoms except weakness Review of Systems Review of Systems: All systems reviewed and are unremarkable except as noted below Neurologic: + generalized weakness Physical Exam Physical Exam: Lying in bed comfortably Constitutional: well developed, well nourished, + ill appearing and + obese Eyes: PERRL, conjunctivae normal, anicteric sclerae ENMT: external ear and nose normal, oropharynx normal Neck: trachea midline, no thyromegaly Respiratory: normal respiratory effort; no respiratory distress Auscultation: lungs clear to auscultation bilaterally Cardiovascular: Rate/Rhythm: regular rate and regular rhythm; not tachycardic Gastrointestinal (Abdomen): normal bowel sounds, soft, nontender, no hepatosplenomegaly Musculoskeletal: No acute arthritis in any joint Neurologic: PERRL, EOMI, accommodation nl, no face palsy, no dysarthria Psychiatric: A+Ox3, euthymic affect Lymphatic: no cervical or axillary lymphadenopathy Results & Data Results & Data ([facility]) Vital Signs (Past 12 Hours) Vital Signs Temp Pulse Resp BP BP Pulse Ox 04/28/21 14:51 36.9 C 66 18 115/73 98 04/28/21 12:12 36.8 C 64 20 132/82 98 04/28/21 07:13 36.7 C 70 18 113/68 99 Laboratory Results Short CBC 04/27/21 04/28/21 Range/Units 18:34 05:19 WBC 3.69 L 2.24 L (4.8-10.8) K/uL Hgb 8.4 L 8.1 L (14.0-18.0) g/dL Hct 23.9 L 23.4 L (42-52) % Plt Count 61 L 62 L (130-400) K/uL BMP 04/27/21 04/28/21 18:34 05:19 Sodium 139 140 Potassium 3.2 L 3.5 Chloride 109 H 111 H Carbon Dioxide 23 23 BUN 16 14 Creatinine 1.19 1.03 Glucose 124 H 89 Calcium 8.8 8.6 Cardiac Enzymes 04/27/21 Range/Units 18:34 Troponin I < 0.015 (0-0.045) ng/ml Liver Function 04/27/21 Range/Units 18:34 Total Bilirubin 1.6 H (0.2-1) mg/dl AST 31 (15-37) U/L ALT 33 (12-78) U/L Alkaline Phosphatase 96 (45-117) U/L Albumin 3.4 (3.4-5.0) gm/dl Urine 04/27/21 Range/Units 20:10 Urine Color Dark Yellow Urine Appearance Clear (Clear) Urine pH 6.0 (4.5-7.5) Ur Specific [place] 1.020 (1.000-1.030) Urine Protein Negative (Negative) Urine Glucose (UA) Negative (Negative) Medications Administered Current Inpatient Medications Acetaminophen (Acetaminophen 325 Mg Tab) 650 mg PO Q4H PRN PRN Reason: Pain or Fever Stop: 05/27/21 23:39 Acyclovir (Acyclovir 400 Mg Tab) 800 mg PO BID [facility] Stop: 05/28/21 00:00 Last Admin: 04/28/21 08:16 Dose: 800 mg Documented by: Albuterol (Albuterol Hfa 8 Gm Inhaler) 2 puffs INH Q4R PRN PRN Reason: Shortness Of Breath Or Wheezin Stop: 05/27/21 23:39 Cetirizine HCl (Cetirizine Hcl 10 Mg Tablet) 10 mg PO DAILY [facility] Stop: 05/28/21 08:59 Last Admin: 04/28/21 08:17 Dose: 10 mg Documented by: Docusate Sodium (Docusate Sodium 100 Mg Cap) 100 mg PO BID [facility] Stop: 05/28/21 08:59 Last Admin: 04/28/21 08:17 Dose: 100 mg Documented by: Fluticasone/Vilanterol (Fluticasone/Vilanterol 100/25mcg 14 Puffs/Inhaler) 1 puffs INH HS [facility] Stop: 05/28/21 20:59 Heparin Sodium (Porcine) (Heparin 100 Unit/Ml 5ml Flush) 5 ml FLUSH PRN PRN PRN Reason: Flush Stop: 05/28/21 00:23 Sodium Chloride (Nss 1000ml) 1,000 mls @ 75 mls/hr IV .[id number] [facility] Stop: 05/27/21 23:44 Last Admin: 04/28/21 13:29 Dose: 75 mls/hr Documented by: Lactulose (Lactulose Syrup 30 Gm/45 Ml Udp) 30 gm PO TID PRN PRN Reason: Constipation Stop: 05/27/21 23:47 Nitroglycerin (Nitroglycerin Sl 0.4 Mg/Tab Tab) 0.4 mg SL UD PRN PRN Reason: Chest Pain Stop: 05/27/21 23:39 Ondansetron HCl (Ondansetron Inj 2 Mg/Ml 2 Ml Vial) 4 mg IV Q6H PRN PRN Reason: Nausea Stop: 05/27/21 23:39 Ondansetron HCl (Ondansetron 8mg Od Tab) 8 mg PO Q8H PRN PRN Reason: Nausea Stop: 05/27/21 23:47 Polyethylene Glycol (Polyethylene (Miralax) 17 Gm Pack) 17 gm PO DAILY PRN PRN Reason: Constipation Stop: 05/27/21 23:39
[2021-04-28] MEDS ORDERED: FLUTICASONE/VILANTEROL 100/25MCG 14 PUFFS/INHALER INH SCH (21:00)
[2021-04-29] MEDS: SODIUM CHLORIDE 0.9% 1000ML 1,000 ML IV SCH (02:17)
[2021-04-29] MEDS: ACYCLOVIR 400 MG TAB PO SCH (07:30)
[2021-04-29] MEDS: DOCUSATE SODIUM 100 MG CAP PO SCH (07:30)
[2021-04-29] MEDS: CETIRIZINE HCL 10 MG TABLET PO SCH (07:30)
[2021-04-29 07:56] LABS: Hematocrit (blood only) 21.7 % (42-52); Hemoglobin 7.7 g/dL (14.0-18.0); Mean Corpuscular Hemoglobin 32.5 pg (25-34); Mean Corpuscular Hgb Conc 35.5 g/dL (32-36); Mean Corpuscular Volume 91.6 fL (80-100); RDW Coefficient of Variation 16.3 % (11.5-14.5); RDW Standard Deviation 54.3 fL (36.4-46.3); Red Blood Count 2.37 M/uL (4.7-6.1); White Blood Count 2.99 K/uL (4.8-10.8)
[2021-04-29 08:12] LABS: Mean Platelet Volume 11.3 fL (7.4-10.4); Platelet Count 65 K/uL (130-400)
[2021-04-29 08:17] LABS: Albumin Level 2.9 gm/dl (3.4-5.0); BUN Creatinine Ratio 15.4 (10-20); Calcium 8.3 mg/dl (8.5-10.1); Creatinine Clr Calc Pharmacy 106.6 ml/min; Est GFR (African American) 109.3 ml/min; Est GFR (Non-African American) 94.3 ml/min; Magnesium 1.8 mg/dl (1.8-2.4); Potassium 3.4 mmol/L (3.5-5.1)
[2021-04-29 08:29] LABS: Albumin Globulin Ratio 1.1 (0.9-2); Globulin 2.7 gm/dl (2.5-4.0); Phosphorus 2.6 mg/dl (2.5-4.9); Total Protein 5.6 gm/dl (6.4-8.2)
[2021-04-29 08:38] LABS: Basophils # (auto) 0.01 K/uL (0-0.2); Basophils % (auto) 0.3 %; Eosinophils # (auto) 0.03 K/uL (0-0.5); Immature Granulocytes # (auto) 0.07 K/uL (0.00-0.02); Immature Granulocytes % (auto) 2.3 %; Lymphocytes # (auto) 0.24 K/uL (1.2-3.4); Monocytes # (auto) 0.08 K/uL (0.11-0.59); Monocytes % (auto) 2.7 %; Neutrophils # (auto) 2.56 K/uL (1.4-6.5); Neutrophils % (auto) 85.7 %
[2021-04-29] MEDS ORDERED: POTASSIUM CHLORIDE CRTAB 20 MEQ TABCR PO STA (10:30)
--- NOTE | 2021-04-29 12:04 | Hospitalist Progress Note ---
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 Tirado in [facility] He will be discharged home this afternoon He will start his chemotherapy medicine from tomorrow and keep regular appointment with Dr. 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 History of renal mass status post biopsy which showed large B-cell lymphoma and History of brain lesion with biopsy-proven B-cell lymphoma Has been under care of oncologist in [facility] (5) GERD (gastroesophageal reflux disease): Plan: Continue PPI Other medical conditions including Sleep apnea Asthma BPH-remains stable Admission and Anticipated Discharge Date Admission Date: April 27, 2021 Subjective 04/28/2021 The patient was seen and examined in medical telemetry unit He has history of diffuse B-cell lymphoma with brain lesion and has been getting new chemotherapy agent with Imbruvica Was admitted yesterday with shaking chills and weakness following chemotherapy Has been feeling a little bit better today without any significant symptoms except weakness 04/29/2021 The patient was seen and examined in medical telemetry unit He remains a little weak but otherwise denies any other symptoms He has been afebrile and remains hemodynamically stable He will be discharged home this afternoon Review of Systems Review of Systems: All systems reviewed and are unremarkable except as noted below Neurologic: + generalized weakness Physical Exam Physical Exam: Lying in bed comfortably Constitutional: well developed, well nourished, + ill appearing and + obese Eyes: PERRL, conjunctivae normal, anicteric sclerae ENMT: external ear and nose normal, oropharynx normal Neck: trachea midline, no thyromegaly Respiratory: normal respiratory effort; no respiratory distress Auscultation: lungs clear to auscultation bilaterally Cardiovascular: Rate/Rhythm: regular rate and regular rhythm; not tachycardic Gastrointestinal (Abdomen): normal bowel sounds, soft, nontender, no hepatosplenomegaly Neurologic: PERRL, EOMI, accommodation nl, no face palsy, no dysarthria Psychiatric: A+Ox3, euthymic affect Lymphatic: no cervical or axillary lymphadenopathy Results & Data Results & Data ([facility]) Vital Signs (Past 12 Hours) Vital Signs Temp Pulse Pulse Resp BP Pulse Ox 04/29/21 11:12 36.9 C 81 18 112/75 98 04/29/21 07:59 36.9 C 64 16 111/72 100 04/29/21 05:31 68 04/29/21 03:29 36.7 C 64 18 120/78 98 04/29/21 03:20 20 Laboratory Results Short CBC 04/29/21 Range/Units 07:25 WBC 2.99 L (4.8-10.8) K/uL Hgb 7.7 L (14.0-18.0) g/dL Hct 21.7 L (42-52) % Plt Count 65 L (130-400) K/uL BMP 04/29/21 07:25 Sodium 141 Potassium 3.4 L Chloride 112 H Carbon Dioxide 22 BUN 13 Creatinine 0.83 Glucose 83 Calcium 8.3 L Liver Function 04/29/21 Range/Units 07:25 Total Bilirubin 1.0 D (0.2-1) mg/dl AST 26 (15-37) U/L ALT 29 (12-78) U/L Alkaline Phosphatase 87 (45-117) U/L Albumin 2.9 L (3.4-5.0) gm/dl Medications Administered Current Inpatient Medications Acetaminophen (Acetaminophen 325 Mg Tab) 650 mg PO Q4H PRN PRN Reason: Pain or Fever Stop: 05/27/21 23:39 Acyclovir (Acyclovir 400 Mg Tab) 800 mg PO BID [facility] Stop: 05/28/21 00:00 Last Admin: 04/29/21 07:30 Dose: 800 mg Documented by: Albuterol (Albuterol Hfa 8 Gm Inhaler) 2 puffs INH Q4R PRN PRN Reason: Shortness Of Breath Or Wheezin Stop: 05/27/21 23:39 Cetirizine HCl (Cetirizine Hcl 10 Mg Tablet) 10 mg PO DAILY [facility] Stop: 05/28/21 08:59 Last Admin: 04/29/21 07:30 Dose: 10 mg Documented by: Docusate Sodium (Docusate Sodium 100 Mg Cap) 100 mg PO BID [facility] Stop: 05/28/21 08:59 Last Admin: 04/29/21 07:30 Dose: 100 mg Documented by: Fluticasone/Vilanterol (Fluticasone/Vilanterol 100/25mcg 14 Puffs/Inhaler) 1 puffs INH HS [facility] Stop: 05/28/21 20:59 Last Admin: 04/28/21 20:29 Dose: 1 puffs Documented by: Heparin Sodium (Porcine) (Heparin 100 Unit/Ml 5ml Flush) 5 ml FLUSH PRN PRN PRN Reason: Flush Stop: 05/28/21 00:23 Sodium Chloride (Nss 1000ml) 1,000 mls @ 75 mls/hr IV .[id number] [facility] Stop: 05/27/21 23:44 Last Admin: 04/29/21 02:17 Dose: 75 mls/hr Documented by: Lactulose (Lactulose Syrup 30 Gm/45 Ml Udp) 30 gm PO TID PRN PRN Reason: Constipation Stop: 05/27/21 23:47 Nitroglycerin (Nitroglycerin Sl 0.4 Mg/Tab Tab) 0.4 mg SL UD PRN PRN Reason: Chest Pain Stop: 05/27/21 23:39 Ondansetron HCl (Ondansetron Inj 2 Mg/Ml 2 Ml Vial) 4 mg IV Q6H PRN PRN Reason: Nausea Stop: 05/27/21 23:39 Ondansetron HCl (Ondansetron 8mg Od Tab) 8 mg PO Q8H PRN PRN Reason: Nausea Stop: 05/27/21 23:47 Polyethylene Glycol (Polyethylene (Miralax) 17 Gm Pack) 17 gm PO DAILY PRN PRN Reason: Constipation Stop: 05/27/21 23:39
--- NOTE | 2021-04-30 07:52 | Discharge Summary ---
Date of Service April 30, 2021 Admission HPI Per Admitting Provider DICTATED BY: Anatoliy Grady MD DATE OF ADMISSION: 04/27/2021 CHIEF COMPLAINT: Illness. HISTORY OF PRESENT ILLNESS: This is a 61-year-old male with past medical history significant for diffuse large cell B-cell lymphoma, history of pancytopenia, status post autologous bone marrow transplantation, history of GI bleed, history of low testosterone, history of sleep apnea, on CPAP, history of asthma mild persistent, hypokalemia, hyperbilirubinemia, history of metabolic alkalosis, history of [place], history of BPH. The patient was getting chemo from [facility], but his lymphoma recurred and he is having a brain lesion, and at that time it was decided that he is a candidate for CAR-T therapy and transferred his care to the hem/onc at [facility]. As per the hem/onc from [facility] notes, in 1999, he was diagnosed with left testicular lymphoma, treated with left orchiectomy and radiation, CHOP 6 cycles plus IT methotrexate x6. In 11/2018, he was found to have a right renal mass, and biopsy of renal mass showed diffuse large cell B-cell lymphoma, and he had chemo for that. In 01/2021, he was admitted for short-term memory loss, confusion. CT and MRI demonstrated edema and enhancement in the splenium of the corpus callosum, left greater than right, and 1 cm focus in the left subinsular region. Brain biopsy showed atypical B cell infiltrate with B-cell lymphoma. He also developed acute renal failure from his chemo and he has transferred his care to hem/onc at [facility] and plan was to start him on CAR-T therapy . Meanwhile, he was placed on bridging chemotherapy of Imbruvica around 10 days ago. Before that, he was doing okay, but since then he is having weakness, poor appetite, some ambulatory dysfunction, some dizziness while walking, some nausea and also shaking chills, which prompted him to come to the ER today. Here in the ER, the lab work showing pancytopenia, but he is afebrile. Chest x-ray and urinalysis were okay. ER physician talked to his oncologist at [facility], Dr. Stephon Velásquez, and was advised for no antibiotics, but to hold his Imbruvica and monitor in the hospital. Currently, the patient is resting comfortably, hemodynamically stable. is in the room, helping with the history. Denies any fevers. Has some chronic headaches since he was diagnosed with a lesion in the brain, but it is tolerable. He says his right ear is somewhat blocked mostly from the wax. No blurred visions. Currently, no runny nose, no sore throat. Has occasional dry cough, mostly from his allergies. Last night, he had some shortness of breath and he has to use his inhaler. Currently, no shortness of breath, no difficulty swallowing. Appetite is down. No chest pain. Was nauseous. No abdominal pain. Somewhat constipated, but no blood in the stools or black stools. No he maturia, no swelling in the legs. Currently, hemodynamics are stable. Admission Exam Per Admitting Provider GENERAL: The patient is of moderate build, not in acute distress. VITAL SIGNS: Temperature 36.9, pulse 84, respiratory rate 21, blood pressure 131/74, oxygen 97% on room air. HEENT: Pupils equal, round and reactive to light. Right ear wax seen.Oral mucosa moist. NECK: No JVD, no neck masses. CARDIOVASCULAR: S1 and S2 heard. Regular rate and rhythm. No murmur, no gallop. CHEST: Right-sided A port seen. RESPIRATORY SYSTEM: Normal AP diameter. No accessory muscle use. No wheezing, no crackles. ABDOMEN: Soft, bowel sounds present, nontender, no distention. CENTRAL NERVOUS SYSTEM: Alert and oriented. No facial droop seen. Speech is clear. Moves extremities. EXTREMITIES: No edema, no erythema. Principal Diagnosis Right course-no infection identified, generalized weakness-improved, diffuse B- cell lymphoma, pancytopenia Discharge Exam Constitutional well developed, well nourished, + ill appearing and + obese Eyes PERRL, conjunctivae normal, anicteric sclerae ENMT external ear and nose normal, oropharynx normal Neck trachea midline, no thyromegaly Respiratory normal respiratory effort; no respiratory distress Auscultation: lungs clear to auscultation bilaterally Cardiovascular Rate/Rhythm: regular rate and regular rhythm; not tachycardic Gastrointestinal (Abdomen) normal bowel sounds, soft, nontender, no hepatosplenomegaly Neurologic PERRL, EOMI, accommodation nl, no face palsy, no dysarthria Psychiatric A+Ox3, euthymic affect Lymphatic no cervical or axillary lymphadenopathy Discharge Data Allergies Allergy/AdvReac Type Severity Reaction Status Date / Time cat dander Allergy Intermediate SNEEZING Verified 04/27/21 19:15 CONGESTION dog dander Allergy Intermediate SNEEZING, Verified 04/27/21 19:15 CONGESTION ADHESIVE Allergy Intermediate SKIN Uncoded 04/27/21 19:15 IRRITATION POLLEN Allergy Intermediate ITCHY Uncoded 04/27/21 19:15 EYES, SNEEZING CONGESTION Consultations 04/28/21 00:02 ED Decision to Admit Stat Hospital Course (1) Rigors: Presented with shaking chills with history of diffuse metastatic B-cell lymphoma on chemotherapy Has been getting Imbruvica for the last 10 days and plan to start CART therapy as per oncologist in [facility] Remained hemodynamically stable and afebrile on admission Did not have any signs of infection Discussed with oncologist in [facility] and was advised to monitor for now Clinically much better today but remains generally weak Blood cultures have been negative His blood counts are quite reasonable and there was discussed in detail with Dr. Tirado in [facility] He will be discharged home this afternoon He will start his chemotherapy medicine from tomorrow and keep regular appointment with Dr. 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 (5) GERD (gastroesophageal reflux disease): Continue PPI Other medical conditions including Sleep apnea Asthma BPH-remains stable Total Time Total Time Spent Total Time Spent (In Minutes): 35 minutes Discharge Plan Discharge Items Patient Disposition: Home - Self-Care Reason For Visit: ILLNESS Discharge Diagnosis: Right course-no infection identified, generalized weakness-improved, diffuse B- cell lymphoma, pancytopenia Condition on Discharge: Good Activity: Resume your previous activity Non-emergency contact: Primary Care Provider Call non-emergency contact if: you have any medication questions and your symptoms worsen Follow-up/Referrals: Cristhian Johnson MD [Primary Care Provider] - (Date & Time 05/05/2021 11:20 AM Provider Cristhian Johnson MD Department General Internal Medicine [facility] ) Diet: Heart Healthy Addtl Attending Provider Instructions: Please take precaution to avoid falls Keep your appointment with the oncologist Try to drink more fluid Resume your Chemo medicine from Tomorrow Pending Studies at Discharge: No Stand-Alone Forms: My [facility], Smoking Cessation Medications and DC Order Prescriptions: Continued Breo Ellipta 100-25 mcg/dose blister with device 1 inh INHALATION HS RF: 0 acetaminophen [Tylenol] 325 mg Tablet 325 mg PO Q6H PRN (Reason: Pain) RF: 0 ondansetron HCl 8 mg Tablet 8 mg PO Q8H PRN (Reason: Nausea) RF: 0 docusate sodium 50 mg Capsule 50 mg PO BID RF: 0 acyclovir 800 mg tablet 800 mg PO BID RF: 0 albuterol sulfate 90 mcg/actuation Hfa Aerosol Inhaler 2 puff INHALATION Q4H PRN (Reason: Shortness Of Breath Or Wheezing) RF: 0 lactulose 10 gram/15 mL solution 30 ml PO TID PRN (Reason: Constipation) RF: 0 cetirizine [Zyrtec] 10 mg Tablet 10 mg PO DAILY RF: 0 Imbruvica 140 mg Tablet 840 mg PO DAILY RF: 0 Discharge Orders: Discharge Order (Routine); Ordered 04/29/21 Ordered By: Meredith Lovelace Admission Data Admit Date/Time: 04/27/21 21:40 Attending Provider: Meredith Lovelace Admit Provider: Anatoliy Grady Primary Care Provider: Cristhian Johnson Other Providers: Anatoliy Grady Other Interventions: Discharge Summary Assessment (RN) Last Done: 04/29/21 12:47
== END 2021-04-29 16:35 | disposition home or self-care (01) ==
LOC: ED 16:52 → INTOOBSV 21:40 → 2W 21:40

== ENCOUNTER 2024-10-05 09:25 | Inpatient (IN) ==
--- OUTSIDE RECORDS SUMMARY | 2024-10-05 09:31 | External Medical Summary | Summary of Care ---
Author Name Unknown Organization [facility] Address [address] [facility] [place] [address] Phone [phone] Care Team Providers Care Thermal Intelligence Analyst Name Role Phone Cristhian Johnson MD Primary Care Provider + Encounter Details Date Type Department Care Team (Late st Contact Info) Description 09/16/2024 Telephone General Internal Medicine [facility] [address] [place] [address] Ese Emmaunel MD [address] [place] [address] Allergies Active Allergy Reactions Criticality Noted Date Comments Cat Dander Medium 11/28/2018 Dog Dander Low 11/28/2018 Pollen Medium 11/28/2018 Per transferring facility records documented as of this encounter (statuses as of 09/17/2024) Medications CPAP every night at bedtime. Active Spacer/Aero-Hold ing Chambers DeviceIndication s:Bronchitis, complicated Use with inhaler. 1 Each 2 Active Acyclovir 800 MG Oral Tablet (Zovirax) Take 1 Tablet by mouth in the morning and 1 Tablet before bedtime. 3 Active Ventolin HFA 108 (90 Base) MCG/ACT Inhalation Aerosol SolutionIndicati ons:Bronchitis, complicated Inhale 2 Puffs by mouth every 4 hours as needed for Wheezing. 8 g 4 Active Doxycycline Hyclate 100 MG Oral CapsuleIndicatio ns:Acute maxillary sinusitis, recurrence not specified Take 1 Capsule by mouth in the morning and 1 Capsule before bedtime. Do all this for 7 days. Take for 7 days. 14 Capsule 4 09/20/20 24 Active Testosterone 20.25 MG/ACT (1.62%) Transdermal Gel (AndroGel Pump)Indications :Primary testicular hypogonadism Apply 3 Act topically to affected area in the morning. to clean, dry, unbroken skin on the shoulders or upper arms.. 450 g 4 Active Testosterone 20.25 MG/ACT (1.62%) Transdermal Gel (AndroGel Pump)Indications :Primary testicular hypogonadism Apply 3 Act topically to affected area in the morning. to clean, dry, unbroken skin on the shoulders or upper arms.. 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 Asthma, mild persistent 08/18/2020 Low testosterone 08/18/2020 S/P autologous bone marrow transplantation 07/10 Overview (07/16/2019): Chemotherapy:BEAM 4.44^10e8/Kg (480 mls) Day 0: 07/16/2019 Diffuse large B-cell lymphom a of extranodal site excluding spleen and other solid organs 11/30/2018 MAULIK on CPAP 11/28/2018 documented as of this encounter (statuses as of 09/17/2024) Resolved Problems Problem Noted Date Diagnosed Date Resolved Date Prediabetes 02/02/2022 09/22/2022 Antineoplastic chemotherapy induced pancytopenia 12/31/2021 08/24/2023 Hypokalemia 03/06/2021 12/31/2021 Hyperbilirubinemia 03/06/2021 Overview (03/06/2021): Due to MTX Metabolic alkalosis 03/06/2021 01/01/20 Encounter for antineoplastic chemotherapy 03/03/2021 08/24/2023 REMINGTON (acute kidney injury) 02/22/2021 Anemia due to antineoplastic chemotherapy 02/18/2021 08/24/2023 Thrombocytopenia 02/18/2021 02/15/2023 REMINGTON (acute kidney injury) 02/18/2021 Small bowel obstruction 02/11/2021 01/0 03/2022 History of lymphoma 08/20/2020 02/16/20 23 Dry cough 02/25/2020 08/17/2020 MUÑOZ (dyspnea on exertion) 02/25/2020 Mild intermittent asthma without complication 02/25/2004/13/2020 Cellulitis of scrotum 07/28/20192019 Antineoplastic chemotherapy induced pancytopenia 07/27/2019 02/18/2021 Encounter for antineoplastic chemotherapy 12/14/2018 02/15/2023 GIB (gastrointestinal bleeding) 11/28/2018 08/18/2020 Overview (11/28/2018): Likely 2/2 abdominal mass concerning for cancer Acute blood loss anemia 11/28/2018 03/2 02/2022 Right renal mass 11/28/2018 02/15/2023 Urinary retention 11/28/2018 08/18/2020 Overview (11/28/2018): On flomax documented as of this encounter (statuses as of 09/17/2024) Immunizations Name Administration Dates Next Due COVID-19 mRNA, LNP-s, No Pre serve, 2-Dose Series (Pfizer) 11/19/2020 Covid-19, Mrna, Lnp-s, Pf, B ivalent, 30 Mcg, IM, 12 yrs and above (Pfizer) 08/24/2022 DTaP Dipth/Tet/Acell Pertussis (Infanrix), Peds 01/26/2021,09/28/2020,07/28/2020 H1N1 2009 Influenza, IM 07/04/2012 HIB PRP-T, 4 Dose, PF, IM (H iberix, ActHib) 01/26/2021,09/28/2020,07/28/2020 Hepatitis B, 20+ yrs 01/26/2021,09/28/2020,07/28 IPV - Polio Virus Vaccine (Inact) 09/28/2020, Meningococcal MCV4O Conjugat e Vaccine (Menveo) 09/28/2020,07/28/2020 Pneumococcal Conjugate Vacc, 13 Valent (Prevnar) 07/28/2020,03/19/2020,01/17/2020 Pneumococcal Polysaccharide PPV23 (Pneumovax) 01/26/2021,06/30/1997 Seasonal Influenza Vac., MDV , IM, 0.5 mL (Fluzone) 07/23/2014,06/18/2013,07/04/2012 Seasonal Influenza Virus Vac cine, Unspecified Formulation 11/21/2018,06/19/2018,07/23/2014,06/18,07/04/2012 Seasonal Influenza, PF, 6 M & above, IM , (FluLaval or Fluzone) 08/24/2022,07/28/2020,09/17/2019,06/19,07/23/2014,06/18/2013,07/04/2012 TD - Tetanus/Diptheria (ADULT) 07/01/1997 TD, Preservative Free 07/01/1997 TDAP (age 10 and older)(Boostrix) 04/13/2010 Zoster Vaccine Recombinant (Shingrix) ,01/17/2020,11/21/2018,04/27 documented as of this encounter Social History Tobacco Use Types Packs/Day Years Used Date Smoking Tobacco: Never Passive Smoke Exposure: Past Smokeless Tobacco: Never Alcohol Use Standard Drinks/Week Comments Not Currently 0 (1 standard drink = 0.6 oz pur e alcohol) AUDIT-C Answer Date Recorded Frequency of Alcohol Consumption 2-4 times a mon 08/18/2020 Average Number of Drinks 1 or 2 020 Frequency of Binge Drinking Never 08/09 PHQ-2 Answer Date Recorded PHQ Adult Total Score 0 08/24/2023 Hunger Vital Sign Answer Date Recorded Within the past 12 months, y ou worried that your food would run out before you got the money to buy more. Never true 03/22/20 24 Within the past 12 months, t he food you bought just didn't last and you didn't have money to get more. Never true 03/22/2024 Childcare Answer Date Recorded Do you feel overwhelmed with taking care of a child, family member or friend? No 03/22/2024 Does your family need help f inding childcare? (Household - for ages 0-17 years) Not on file 03/22/2024 Clothing Answer Date Recorded Have you been unable to get clothing when it was really needed? No 03/22/2024 Is your family able to get c lothes or diapers when needed? (Household - for ages 0-17 years) Not on file 03/22/2024 Personal Safety Answer Date Recorded Do you feel unsafe or have concerns for your saf ety? No 03/22/2024 Do you have concerns for you r family's safety? (Household - for ages 0-17 years) Not on file 03/22/2024 Utilities Answer Date Recorded Do you have trouble paying y our heating, water, or electric bill? No 03/22/2024 Is your family able to pay t he heat, water, or electric bill? (Household - for ages 0-17 years) Not on file 03/22/2024 Does your family have access to good internet? (Household - for ages 0-17 years) Not on file 03/22/2024 Employment Status Answer Date Recorded Are you unemployed or without regular income? No 03/22/2024 Does the household have a re gular source of income? (Household - for ages 0-17 years) Not on file 03/22/2024 Social Connections Answer Date Recorded How often do you feel lonely or isolated from th ose around you? Never 03/22/2024 Financial Resource Strain Answer Date R ecorded Do you have any trouble payi ng for your medications, or do you think you might in the future? No 03/22/2024 Does your family have troubl e paying for medicine? (Household - for ages 0-17 years) Not on file 03/22/2024 Transportation Needs Answer Date Record ed READ ONLY Do you have troubl e getting a ride to medical visits or work? Never True 03/22/2024 Does your family have a hard time getting a ride to doctors visits? (Household - for ages 0-17 years) Not on file 03/22/2024 Has lack of transportation k ept you from medical appointments, meetings, work, or from getting things needed for daily living? Check all that apply. (Adult - for ages 18 years and over) Not on file 03/22/2024 Do you (or your family) have trouble finding or paying for a ride (transportation)? (Household - for ages 0-17 years) Not on file 03/22/2024 Housing Stability Answer Date Recorded Do you currently live in a s helter or have no steady place to sleep at night? No 03/22/2024 READ ONLY Do you think you a re at risk of becoming homeless? No 03/22/2024 Does your family worry about paying for your home or becoming homeless? (Household - for ages 0-17 years) Not on file 0 03/22/2024 Are you homeless or worried that you might be in the future? (Adult - for ages 18 years and over) Not on file Are you (or your family) radha eless or worried that you might be in the future? (Household - for ages 0-17 years) Not on file Food Insecurity Answer Date Recorded Do you need food for this week? No 03/22/2024 Are you able to get enough f ood for your family? (Household - for ages 0-17 years) Not on file 03/22/2024 Does your family need food t his week? (Household - for ages 0-17 years) Not on file 03/22/2024 Do you always have enough fo od for your family? (Household - for ages 0-17 years) Not on file 03/22/2024 Sex and Gender Information Value Date Recorded Sex Assigned at Male 08/18/2020 9:54 AM EST Legal Sex Male 6:01 AM EST Gender Identity Male 08/18/2020 9:54 AM EST Sexual Orientation Straight 08/18/2020 9: 54 AM EST Occupation Industry Job Start Date Job End Date retired Not on file Not on file Not on file documented as of this encounter Functional Status * Are you deaf or do you have serious difficulty hearing? Answer Date of Assessment Author No 03/02/2021 3:36 PM EDT Marj Lin RN * Are you blind or do you have serious difficulty seeing, even when wearing glasses? Answer Date of Assessment Author No 03/02/2021 3:36 PM ANAIT Marj Lin RN * Do you have serious difficulty walking or climbing stairs? (5 years old or older) Answer Date of Assessment Author No 03/02/2021 3:36 PM ANAIT Marj Lin RN * Do you have difficulty dressing or bathing? (5 years old or older) Answer Date of Assessment Author No 03/02/2021 3:36 PM EDT Marj Lin RN * Because of a physical, mental, or emotional condition, do you have difficulty doing errands alone such as visiting a doctors office or shopping? (15 years old or older) Answer Date of Assessment Author No 03/02/2021 3:36 PM Marj Prieto RN documented as of this encounter Mental Status * Because of a physical, mental, or emotional condition, do you have serious difficulty concentrating, remembering, or making decisions? (5 years old or older) Answer Entry Date Author No 03/02/2021 3:36 PM EDT Marj Lin RN documented in this encounter Miscellaneous Notes * Telephone Encounter - Elsa Emmanuel MD - 09/17/2024 4:03 PM EST Prescription sent * Telephone Encounter - Roger Avery RN - 09/17/2024 2:16 PM EST Called, left message for patient to return call to the dedicated nurse call center. Please see Dr. Johnson's previous message. * Telephone Encounter - Cristhian Johnson MD - 09/17/2024 11:37 AM EST Looks like endocrine managing testosterone, would defer to them on that. We can discuss at upcomingvisit as well * Telephone Encounter - Ese Emmanuel MD - 09/16/2024 4:06 PM EST I was contacted to order Testosterone for this patient today. I have not seen this patient and seems pt of Dr Johnson. Also he sees endocrine and last test in March earlier this year was ordered by his endocrine DrKristina Emmanuel. Please add on if need to as seems lab is drawn today. Thanks documented in this encounter Plan of Treatment Upcoming Encounters Date Type Department Care Team (Late st Contact Info) Description 09/25/2024 3:40 PM EST Office Visit General Internal Medicine [facility] [address] [facility] [place] [address] Cristhian Johnson MD [address] [facility] [facility] [place] [facility] [place] [address] 03/27/2025 2:40 PM EDT Telemedicine Endocrinology [address] [place] [id number] Elsa Emmanuel MD [address] [facility] [place] [address] Scheduled Procedures Name Priority Associated Diagnoses Date/Ti me COLONOSCOPY FLEXIBLE PROXIMAL DIAGNOSTIC Recall History of colon polyps Health Maintenance Due Date Last Done Comments Cologuard 2004 Fecal Occult Blood Test 2004 Sigmoidoscopy 2004 COVID-19 Vaccine ( season) 2024 08/24/2022, 12/10/2020, 11/19/2020 Depression Screening 08/24/2024 08/24/2023 Pneumococcal Vaccine: 65+ Years (4 of 4 - PPSV23 or PCV20) 01/26/2026 01/26/2021, 07/28/2020, 03/19/2020, Additional history exists Diabetes Screening 09/16/2027 09/16/2024, 1 10/23/2023, 07/05/2024, Additional history exists Colonoscopy 11/01/2027 11/01/2022, 10/10, 11/30/2018, Additional history exists Colorectal Cancer Screening 11/01/2027 Lipid Panel 09/16/2029 09/16/2024, 05/0 06/2024, 08/16/2023, Additional history exists DTap/Tdap Vaccines (5 - Td or Tdap) 01/26/2031 01/26/2021, 09/28/2020, 07/28/2020, Additional history exists Zoster Vaccines Completed 03/19/2020, 01/07, 11/21/2018, Additional history exists MENINGOCOCCAL (MENACTRA/MENVEO) Aged Out 09/28/2020, 07/28/2020 No longer eligibl e based on patient's age to complete this topic Hepatitis B Vaccine Completed 01/26/2021, 09/28/2020, 07/28/2020 RETIRED - COLONOSCOPY-EVERY 5 YRS AGES 18-100 Discontinued 11/01/2022, 11/01/2022, 11/30/2018, Additional history exists HPV (Gardasil) Vaccine Aged Out No lo nger eligible based on patient's age to complete this topic documented as of this encounter Medical Devices Implanted Type [employer] Instructor Device Identifier Shelf Expiration Date Model / Serial / Lot Cover Bur Hol Ti Lo 17 [id number] - [id number] Implanted:Qty: 1 on 02/03/2021 by Tone Paz III, MD at [facility] Left: Head SYNTHES MAXILLOFACIAL 02/05/2021 [id number] / / Screw Ti Lo Pro Sd 4mm 400.834 - [id number] Implanted:Qty: 2 on 02/03/2021 by Tone Paz III, MD at [facility] [place] Left: Head SYNTHES MAXILLOFACIAL 02/05/2021 [id number] / / documented as of this encounter Visit Diagnoses Diagnosis Primary testicular hypogonadism Other testicular hypofunction documented in this encounter Advance Directives Documents on File Type Date Recorded Patient Sales Team Member Expl anation Power of Cpht 11/29/2018 Miryam rodrigues Ben POWER OF CLIENT ADVOCATE * Full Code (Latest Code Status on File) Date Activated Date Inactivated Comments 03/02/2021 5:28 PM 03/11/2021 7:55 PM This order re flects the patients wishes and were consensually agreed upon. Question Answer Comments Discussion of Advance Directives occurred with: Patient Does the patient have a Living Will? No Does the patient have Health Care Power of Attor alexandria? No * Full Code Date Activated Date Inactivated Comments 02/10/2021 3:57 PM 02/18/2021 6:19 PM This order re flects the patients wishes and were consensually agreed upon. Question Answer Comments Discussion of Advance Direct celeste occurred with: Patient/Family Does the patient have a Living Will? Yes, not cu rrently available Does the patient have Health Care Power of Cpht? Yes, in chart and reviewed as current * Full Code Date Activated Date Inactivated Comments 02/01/2021 2:22 AM 02/04/2021 8:40 PM This order r eflects the patients wishes and were consensually agreed upon. Question Answer Comments Discussion of Advance Directives occurred with: Patient Does the patient have a Living Will? No Does the patient have Health Care Power of Attor alexandria? No * Full Code Date Activated Date Inactivated Comments 07/10/2019 11:54 AM 07/29/2019 5:57 PM This order reflects the patients wishes and were consensually agreed upon. Question Answer Comments Discussion of Advance Directives occurred with: Not Discussed Does the patient have a Living Will? Yes, not cu rrently available Does the patient have Health Care Power of Cpht? Yes, not currently available * Full Code Date Activated Date Inactivated Comments 12/14/2018 2:04 PM 12/18/2018 11:36 PM This order r eflects the patients wishes and were consensually agreed upon. Question Answer Comments Discussion of Advance Direct celeste occurred with: Patient Does the patient have a Living Will? Yes, in michelle rt and reviewed as current Does the patient have Health Care Power of Cpht? Yes, in chart and reviewed as current Healthcare Agents on File Name Relationship Healthcare Agent Relationship Communication Jovanni Contreras Adult Child First Alternat e Health Care Agent Miryam Ben Spouse Health Care Agent [email or web address] Care Teams Thermal Intelligence Analyst Relationship Specialty Start Date End Date Cristhian Johnson MD [address] [place] [address] PCP - General Internal Medicine 08/18/20 documented as of this encounter
--- OUTSIDE RECORDS SUMMARY | 2024-10-05 09:31 | External Medical Summary ---
Author Name Unknown Address Unknown Organization [id number][place] [place] [address] [place] [address] Laboratory Report Ordering Provider Test Date Status JOE ROBBINS 09/24/2024 10:05:21 Final Observation Date Value Abnormality Reference (Units ) Status HbA1C 09/24/2024 10:05:21 5.6 4.0-5.6 (% ) Final The use of HbA1c to monitor glycemic status is based on normal hemoglobin and HbA composition. This test should not be used in patients with abnormal hemoglobin that affects the half life of the red blood cell or the in vivo glycation rates. Glucose, estimated average 09/24/2024 10:05:21 114 <126 (mg/dL) Final Performing Location [facility] [place] [address] [facility] [address]
--- OUTSIDE RECORDS SUMMARY | 2024-10-05 09:31 | External Medical Summary | Summary of Care ---
Author Name Unknown Organization [facility] [address] [facility] [address] Phone [phone] Care Team Providers Care Sheriffs Officer Name Role Phone Cristhian Johnson MD Primary Care Provider + Reason for Visit * Reason Comments Outpatient Testing Encounter Details Date Type Department Care Team (Late st Contact Info) Description 09/24/2024 10:00 AM EST Laboratory Laboratory [address] [place] [address] [place] [phone] [facility] [place] [address] [place] [address] Elevated glucose Allergies Active Allergy Reactions Criticality Noted Date Comments Cat Dander Medium 11/28/2018 Dog Dander Low 11/28/2018 Pollen Medium 11/28/2018 Per transferring facility records documented as of this encounter (statuses as of 09/24/2024) Medications CPAP every night at bedtime. Active Spacer/Aero-Holdi ng Chambers DeviceIndications :Bronchitis, complicated Use with inhaler. 1 Each 2 Active Acyclovir 800 MG Oral Tablet (Zovirax) Take 1 Tablet by mouth in the morning and 1 Tablet before bedtime. 3 Active Ventolin HFA 108 (90 Base) MCG/ACT Inhalation Aerosol SolutionIndicatio ns:Bronchitis, complicated Inhale 2 Puffs by mouth every 4 hours as needed for Wheezing. 8 g 4 Active Testosterone 20.25 MG/ACT (1.62%) Transdermal Gel (AndroGel Pump)Indications: Primary testicular hypogonadism Apply 3 Act topically to affected area in the morning. to clean, dry, unbroken skin on the shoulders or upper arms.. 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 History of GI bleed 08/18/2020 [...] as of this encounter (statuses as of 09/24/2024) Resolved Problems Problem Noted Date Diagnosed Date Resolved Date Prediabetes 02/02/2022 09/22/2022 Antineoplastic chemotherapy induced pancytopenia 12/31/2021 08/24/2023 Hypokalemia 03/06/2021 12/31/2021 Hyperbilirubinemia 03/06/2021 4 Overview (03/06/2021): Due to MTX Metabolic alkalosis [...] (gastrointestinal bleeding) 11/28/2018 08/18/2020 Overview (11/28/2018): Likely 2/ abdominal mass concerning for cancer Acute blood loss anemia 11/28/2018 03/2 02/2022 Right renal mass 11/28/2018 02/15/2023 Urinary retention 11/28/2018 08/18/2020 Overview (11/28/2018): On flomax documented as of this encounter (statuses as of 09/24/2024) Immunizations Name Administration Dates Next Due COVID-19 mRNA, LNP-s, No Pre serve, 2-Dose Series (ioBridge) 11/19/2020 Covid-19, Mrna, Lnp-s, Pf, B ivalent, 30 Mcg, IM, 12 yrs and above (ioBridge) 08/24/2022 DTaP Dipth/Tet/Acell Pertussis (Infanrix), Peds 01/26/2021,09/28/2020,07/28/2020 [...] Frequency of Alcohol Consumption 2-4 times a mon08/18/2020 Average Number of Drinks 1 or 2 [...] 3:36 PM EDT Marj Lin RN * Do you have serious difficulty walking or climbing stairs? (5 years old or older) Answer Date of Assessment Author No 03/02/2021 3:36 PM EDT Marj Lin RN * Do you have [...] Assessment Author No 03/02/2021 3:36 PM EDT Mraj Lin RN documented as of this encounter Mental Status * Because of a physical, mental, or emotional condition, do you have serious difficulty concentrating, remembering, or making decisions? (5 years old or older) Answer Entry Date Author No 03/02/2021 3:36 PM EDT Marj Lin RN documented in this encounter Plan of Treatment Upcoming Encounters Date Type Department Care Team (Late st Contact Info) Description 09/25/2024 3:40 PM EST Office Visit General Internal Medicine [facility] [address] [place] [address] Cristhian Johnson MD [address] [facility] [place] [address] 03/27/2025 2:40 PM EDT Telemedicine Endocrinology [address] [place] [phone] Elsa Emmanuel MD [address] [place] [address] [address] Pending Results Name Type Priority Associated Diagnoses Date /Time HEMOGLOBIN A1C Lab Routine Elevated glucose 09/24/2024 10:05 AM EST Scheduled Procedures Name Priority Associated Diagnoses Date/Ti me COLONOSCOPY FLEXIBLE PROXIMAL DIAGNOSTIC Recall History of colon polyps Health Maintenance Due Date Last Done Comments Cologuard 2004 Fecal Occult Blood Test 2004 Sigmoidoscopy 2004 COVID-19 Vaccine (4 - season) 2024 08/24/2022, 12/10/2020, 11/19/2020 Depression Screening [...] this encounter Medical Devices Implanted Type Area Automotive Wholesale Parts Advisor Device Identifier Shelf Expiration Date Model / Serial / Lot Cover Bur Hol Ti Lo 17 421.527 - [id number] Implanted:Qty: 1 on 02/03/2021 by Tone Paz III[place] [facility] [place] SYNTHES MAXILLOFACIAL 02/05/2021 421.527 / / Screw Ti Lo Pro Sd 4mm 400.834 - [id number] Implanted:Qty: 2 on 02/03/2021 by Tone Paz III, [place] [facility] [place] Head SYNTHES MAXILLOFACIAL 02/05/2021 400.834 / / documented as of this encounter Visit Diagnoses Diagnosis Elevated glucose Other abnormal glucose documented in this encounter Advance Directives Documents on File Type Date Recorded Patient Anchor Tack Puller Expl anation Power of Territory Service Representative 11/29/2018 Miryam Alysia Contreras POWER OF RN LABOR DELIVERY * Full Code (Latest Code Status on [...] the patient have Health Care Power of Territory Service Representative? Yes, in chart and reviewed as current [...] the patient have Health Care Power of Territory Service Representative? Yes, not currently available * Full Code [...] the patient have Health Care Power of Territory Service Representative? Yes, in chart and reviewed as current Healthcare Agents on File Name Relationship Healthcare Agent Relationship Communication Jovanni Contreras Adult Child First Alternat e Health Care Agent Miryam Ben Spouse Health Care Agent [email or web address] Care Teams Sheriffs Officer Relationship Specialty Start Date End Date Cristhian Johnson MD [address] [facility] [place] [address] PCP - General Internal Medicine 08/18/20 documented as of this encounter
--- OUTSIDE RECORDS SUMMARY | 2024-10-05 09:31 | External Medical Summary | Summary of Care ---
Author Name Unknown Organization [facility] Address [address] [facility] [facility] [address] Phone [phone] Care Team Providers Care Primary Education Professor Name Role Phone Cristhian Johnson MD Primary Care Provider + Reason for Visit * Reason Comments Outpatient Testing Encounter Details Date Type Department Care Team (Late st Contact Info) Description 09/25/2024 4:20 PM EST Laboratory Laboratory [place] [address] [place] [phone] [facility] Scene [address] [place] [address] Bilateral flank pain Allergies Active Allergy Reactions Criticality Noted Date Comments Cat Dander Medium 11/28/2018 Dog Dander Low 11/28/2018 Pollen Medium 11/28/2018 Per transferring facility records documented as of this encounter (statuses as of 09/25/2024) Medications CPAP every night at bedtime. Active [...] or upper arms.. 450 g 4 Active Fluticasone Propionate 50 MCG/ACT Nasal Suspension (Flonase)Indicati ons:Chronic maxillary sinusitis Administer 2 Sprays into each nostril in the morning. 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 History of GI bleed 08/18/2020 [...] as of this encounter (statuses as of 09/25/2024) Resolved Problems Problem Noted Date Diagnosed Date [...] as of this encounter (statuses as of 09/25/2024) Immunizations Name Administration Dates Next Due COVID-19 mRNA, LNP-s, No Pre serve, 2-Dose Series (Health Plotter) 11/19/2020 Covid-19, Mrna, Lnp-s, Pf, B ivalent, 30 Mcg, IM, 12 yrs and above (Health Plotter) 08/24/2022 DTaP Dipth/Tet/Acell Pertussis (Infanrix), Peds 01/26/2021,09/28/2020,07/28/2020 [...] of Alcohol Consumption 2-4 times a mon th 08/18/2020 Average Number of Drinks 1 or [...] 3:36 PM EDT Marj Lin RN documented as of this encounter [...] Care Team (Late st Contact Info) Description 11/27/2024 10:30 AM EST Office Visit Otolaryngology [facility] [address] [facility] [place] [address] Jose D Holbrook DO [address] [facility] [place] [address] 03/27/2025 2:40 PM EDT Telemedicine Endocrinology [address] [place] [phone] Elsa Emmanuel MD [address] [place] [address] [address] 07/08/2025 1:00 PM EDT Office Visit General Internal Medicine [place] [address] [facility] [place], [place] [address] Cristhian Johnson MD [address] [facility] [place], [place] [address] Pending Results Name Type Priority Associated Diagnoses Date /Time URINALYSIS WITH MICROSCOPIC EXAM Lab Routine Bilateral flank pain 09/25/2024 4:15 PM EST Scheduled Procedures Name Priority Associated Diagnoses [...] 07/28/2020, 03/19/2020, Additional history exists Diabetes Screening 09/24/2027 09/24/2024, 1 11/17/2023, 08/23/2024, Additional history exists Colonoscopy 11/01/2027 11/01/2022, 10/10, [...] this encounter Medical Devices Implanted Type Area Supervisor Lead Burning Device Identifier Shelf Expiration Date Model / Serial / Lot Cover Bur Hol Ti Lo 17 421.527 - [id number] Implanted:Qty: 1 on 02/03/2021 by Tone Paz III, [place] [facility] [place] Head SYNTHES MAXILLOFACIAL 02/05/2021 421.527 / / Screw Ti Lo Pro Sd 4mm 400.834 - [id number] Implanted:Qty: 2 on 02/03/2021 by Tone Paz III, [place] [facility] [place]: Head SYNTHES MAXILLOFACIAL 02/05/2021 400.834 / / documented as of this encounter Visit Diagnoses Diagnosis Bilateral flank pain Abdominal pain, unspecified site documented in this encounter Advance Directives Documents on File Type Date Recorded Patient Idea Worker Expl anation Power of Chocolate Dipper 11/29/2018 Miryam Contreras POWER OF NON CLINICAL ADVISOR * Full Code (Latest Code Status on [...] the patient have Health Care Power of Chocolate Dipper? Yes, in chart and reviewed as current [...] the patient have Health Care Power of Chocolate Dipper? Yes, not currently available * Full Code [...] the patient have Health Care Power of Chocolate Dipper? Yes, in chart and reviewed as current Healthcare Agents on File Name Relationship Healthcare Agent Relationship Communication Jovanni Contreras Adult Child First Alternat e Health Care Agent Miryam Contreras Spouse Health Care Agent [email or web address] Care Teams Primary Education Professor Relationship Specialty Start Date End Date Cristhian Johnson MD [address] [place] [address] PCP - General Internal Medicine 08/18/20 documented as of this encounter
--- OUTSIDE RECORDS SUMMARY | 2024-10-05 09:31 | External Medical Summary | Summary of Care ---
Author Name Unknown Organization [facility] Address [address] [facility] [address] Phone [phone] Care Team Providers Care Bat Carrier Name Role Phone Cristhian Johnson MD Primary Care Provider + Reason for Visit * Reason Comments Outpatient Testing Encounter Details Date Type Department Care Team (Late st Contact Info) Description 09/16/2024 12:30 PM EST [facility] [place] [address] [place] [phone] [facility] [address] [place] [address] Elevated cholesterol with elevated triglycerides Allergies Active Allergy Reactions Criticality Noted Date Comments Cat Dander Medium 11/28/2018 Dog Dander Low 11/28/2018 Pollen Medium 11/28/2018 Per transferring facility records documented as of this encounter (statuses as of 09/16/2024) Medications CPAP every night at bedtime. Active [...] or upper arms.. 450 g 4 Active Doxycycline Hyclate 100 MG Oral CapsuleIndication s:Acute maxillary sinusitis, recurrence not specified Take 1 Capsule by mouth in the morning and 1 Capsule before bedtime. Do all this for 7 days. Take for 7 days. 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 10/14/2021 HOME HEALTH RN 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 History of GI bleed 08/18/2020 [...] as of this encounter (statuses as of 09/16/2024) Resolved Problems Problem Noted Date Diagnosed Date [...] as of this encounter (statuses as of 09/16/2024) Immunizations Name Administration Dates Next Due COVID-19 mRNA, LNP-s, No Pre serve, 2-Dose Series (Nuvosun) 11/19/2020 Covid-19, Mrna, Lnp-s, Pf, B ivalent, 30 Mcg, IM, 12 yrs and above (Nuvosun) 08/24/2022 DTaP Dipth/Tet/Acell Pertussis (Infanrix), Peds 01/26/2021,09/28/2020,07/28/2020 [...] PM EST Office Visit General Internal Medicine [facility] [address] [place] [address] Cristhian Johnson MD [address] [facility] [place] [address] 03/27/2025 2:40 PM EDT Telemedicine Endocrinology [address] [place] [phone] Elsa Emmanuel MD [address] [facility] [place] [address] Pending Results Name Type Priority Associated Diagnoses Date /Time LIPID PANEL WITH DIRECT LDL IF TG IS HIGH Lab Routine Elevated cholesterol with elevated triglycerides 09/16/2024 12:20 PM EST COMPREHENSIVE METABOLIC PANEL Lab Routine Elevated cholesterol with elevated triglycerides 09/16/2024 12:20 PM EST Scheduled Procedures Name Priority Associated Diagnoses Date/Ti me COLONOSCOPY FLEXIBLE PROXIMAL DIAGNOSTIC Recall History of colon polyps Health Maintenance Due Date Last Done Comments Cologuard 2004 Fecal Occult Blood Test 2004 Sigmoidoscopy 2004 COVID-19 Vaccine ( - season) 2024 08/24/2022, 12/10/2020, 11/19/2020 Depression Screening 08/24/2024 08/24/2023 Pneumococcal Vaccine: 65+ Years (4 of 4 - PPSV23 or PCV20) 01/26/2026 01/26/2021, 07/28/2020, 03/19/2020, Additional history exists Diabetes Screening 08/23/2027 08/23/2024, 0 07/05/2024, 05/10/2024, Additional history exists Colonoscopy 11/01/2027 11/01/2022, 10/10, 11/30/2018, Additional history exists Colorectal Cancer Screening 11/01/2027 Lipid Panel 02/14/2029 02/15/2024, 05/2023, 02/15/2023, Additional history exists DTap/Tdap Vaccines (5 - [...] this encounter Medical Devices Implanted Type Area Sales Counselor Device Identifier Shelf Expiration Date Model / Serial / Lot Cover Bur Hol Ti Lo 17 421.527 [id number] Implanted:Qty: 1 on 02/03/2021 by Tone Paz III[place] [facility] [place] Head SYNTHES MAXILLOFACIAL 02/05/2021 421.527 / / Screw Ti Lo Pro Sd 4mm 400.834 - [id number] Implanted:Qty: 2 on 02/03/2021 by Tone Paz III, [place] [facility] [place]: Head SYNTHES MAXILLOFACIAL 02/05/2021 400.834 / / documented as of this encounter Visit Diagnoses Diagnosis Elevated cholesterol with elevated triglycerides Mixed hyperlipidemia documented in this encounter Advance Directives Documents on File Type Date Recorded Patient Rubber Stamp Die Inspector Expl anation Power of Vocational Director 11/29/2018 Miryam Contreras POWER OF PERSONNEL CLERK * Full Code (Latest Code Status on [...] the patient have Health Care Power of Vocational Director? Yes, in chart and reviewed as current [...] the patient have Health Care Power of Vocational Director? Yes, not currently available * Full Code [...] the patient have Health Care Power of Vocational Director? Yes, in chart and reviewed as current Healthcare Agents on File Name Relationship Healthcare Agent Relationship Communication Jovanni Contreras Adult Child First Alternat e Health Care Agent Miryam Contreras Spouse Health Care Agent [email or web address] Care Teams Bat Carrier Relationship Specialty Start Date End Date Cristhian Johnson MD [address] [place] [address] PCP - General Internal Medicine 08/18/20 documented as of this encounter
--- OUTSIDE RECORDS SUMMARY | 2024-10-05 09:31 | External Medical Summary | Summary of Care ---
Author Name Unknown Organization [facility] Address [address] [facility] [place] [address] Phone [phone] Care Team Providers Care Optical Goods Drill Operator Name Role Phone Cristhian Johnson MD Primary Care Provider + Reason for Visit * Reason Comments Outpatient Testing Encounter Details Date Type Department Care Team (Late st Contact Info) Description 09/16/2024 12:30 PM EST Laboratory [facility] [place] [address] [place] [phone] [facility] [address] [place] [address] Elevated cholesterol with elevated triglycerides Allergies Active [...] of lymph nodes of multiple regions 10/14/2021 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 [phone] Elsa Emmanuel MD [address] [facility] [place] [address] Pending Results Name [...] this encounter Medical Devices Implanted Type Area Usability Strategist Device Identifier Shelf Expiration Date Model / Serial / Lot Cover Bur Hol Ti Lo 17 421.527 - [id number] Implanted:Qty: 1 on 02/03/2021 by Tone Paz III, [place] [facility] [place]: Head SYNTHES MAXILLOFACIAL 02/05/2021 421.527 / / Screw Ti Lo Pro Sd 4mm 400.834 - [id number] Implanted:Qty: 2 on 02/03/2021 by Tone Paz III, [place] [facility] [place]: Head SYNTHES MAXILLOFACIAL 02/05/2021 400.834 / / documented as of this encounter Procedures Procedure Name Priority Date/Time Associated Diagnosis Comments COMPREHENSIVE METABOLIC PANEL Routine 09/16/2024 12:20 PM EST Elevated cholesterol with elevated triglycerides documented in this encounter Results * (ABNORMAL) COMPREHENSIVE METABOLIC PANEL (09/16/2024 12:20 PM EST) BUN 18 6 - 20 mg/dL 09/16/2024 1:21 PM EST LABORATORY [address] CREATININE 1.1 0.6 - 1.2 mg/dL 09/16/2024 1:21 PM EST [facility] 56 EGFR 72 >=60 mL/min 09/16/2024 1:21 PM EST [facility] 56- Comment:eGFR is calculated b ased on the CKD-EPI 2020 equation. SODIUM 139 135 - 146 mmol/L 09/16/2024 1:21 PM EST LABORATORY [place] 56- POTASSIUM 4.4 3.5 - 5.1 mmol/L 09/16/2024 1:21 PM EST LABORATORY [place] 56- CHLORIDE 102 98 - 107 mmol/L 09/16/2024 1:21 PM EST [facility] 56- CO2 25 22 - 32 mmol/L 09/16/2024 1:21 PM EST [facility] 56- ANION GAP 12 7 - 15 mmol/L 09/16/2024 1:21 PM EST [facility] 56- GLUCOSE 122(H) 70 - 120 mg/dL 09/16/2024 1:21 PM EST [facility] 56 Albumin 4.6 3.8 - 5.0 g/dL 09/16/2024 1:21 PM EST [facility] 56- AST 31 10 - 50 U/L 09/16/2024 1:21 PM EST [facility] 5602 Alkaline Phosphatase 103 35 - 130 U/L 09/16/2024 1:21 PM EST [address] Bilirubin, Total 0.5 <=1.2 mg/dL 09/16/2024 1:21 PM EST [facility] 56 CALCIUM 10.8(H) 8.4 - 10.2 mg/dL 09/16/2024 1:21 PM EST [address] Protein 7.2 6.0 - 8.3 g/dL 09/16/2024 1:21 PM EST [facility] 56 ALT 46 10 - 50 U/L 09/16/2024 1:[address] Blood Venous blood specimen / Unknown Venipuncture / Unknown 09/16/2024 12:20 PM EST 09/16/2024 12:20 PM EST Cristhian Johnson MD LAB BLOOD ORDERABLES Fin al Result [place] [address] [place] [address] documented in this encounter Visit Diagnoses Diagnosis Elevated cholesterol with elevated triglycerides Mixed hyperlipidemia documented in this encounter Advance Directives Documents on File Type Date Recorded Patient Craft Artist Expl anation Power of Tso 11/29/2018 Miryam Contreras POWER OF PLANT PRODUCTION WORKER * Full Code (Latest Code Status on [...] the patient have Health Care Power of Tso? Yes, in chart and reviewed as current [...] the patient have Health Care Power of Tso? Yes, not currently available * Full Code [...] the patient have Health Care Power of Tso? Yes, in chart and reviewed as current Healthcare Agents on File Name Relationship Healthcare Agent Relationship Communication Jovanni Contreras Adult Child First Alternat e Health Care Agent Miryam Contreras Spouse Health Care Agent [email or web address] Care Teams Optical Goods Drill Operator Relationship Specialty Start Date End Date Cristhian Johnson MD [address] [place] [address] PCP - General Internal Medicine 08/18/20 documented as of this encounter
--- OUTSIDE RECORDS SUMMARY | 2024-10-05 09:31 | External Medical Summary | Summary of Care ---
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 [phone] Elsa Emmanuel MD [address] [facility] [place] [address] Scheduled Procedures Name Priority [...] this encounter Medical Devices Implanted Type Area Truck Crane Operator Helper Device Identifier Shelf Expiration Date Model / Serial / Lot Cover Bur Hol Ti Lo 17 421.527 - [id number] Implanted:Qty: 1 on 02/03/2021 by Tone Paz III, MD at [facility] Left: Head SYNTHES MAXILLOFACIAL 02/05/2021 421.527 / / Screw Ti Lo Pro Sd 4mm 400.834 - [id number] Implanted:Qty: 2 on 02/03/2021 by Tone Paz III, MD at [facility] Left: Head SYNTHES MAXILLOFACIAL 02/05/2021 400.834 / / documented as of this encounter Visit Diagnoses Diagnosis Primary testicular hypogonadism Other testicular hypofunction documented in this encounter Advance Directives Documents on File Type Date Recorded Patient Threader Operator Expl anation Power of Yolk Spray Drier 11/29/2018 Miryam rodrigues Ben POWER OF DIRECTOR OF LEADERSHIP DEVELOPMENT * Full Code (Latest Code Status on [...] the patient have Health Care Power of Yolk Spray Drier? Yes, in chart and reviewed as current [...] the patient have Health Care Power of Yolk Spray Drier? Yes, not currently available * Full Code [...] the patient have Health Care Power of Yolk Spray Drier? Yes, in chart and reviewed as current Healthcare Agents on File Name Relationship Healthcare Agent Relationship Communication Jovanni Contreras Adult Child First Alternat e Health Care Agent Miryam Ben Spouse Health Care Agent [email or web address] Care Teams Tiltrotor Crew Chief Relationship Specialty Start Date End Date Cristhian Johnson MD [address] [place] [address] PCP - General Internal Medicine 08/18/20 documented as of this encounter
--- OUTSIDE RECORDS SUMMARY | 2024-10-05 09:31 | External Medical Summary ---
Author Name Unknown Address Unknown Organization [id number]:[facility]ORY [facility] - [address] [facility] [address] Laboratory Report Ordering Provider Test Date Status DO ITZELPHYLLIS 09/25/2024 16:15:58 Final Observation Date Value Abnormality Reference (Units ) Status Color of Urine by Auto 09/25/2024 16:15:58 Light Yellow Colorless, Light Yellow, Yellow, Dark Yellow Final Clarity, Urine 09/25/2024 16:15:58 Clear Clear Final Glucose [Mass/volume] in Urine by Automated test strip 09/25/2024 16:15:58 Negative Negative (mg/dL) Final Bilirubin.total [Presence] in Urine by Automated test strip 09/25/2024 16:15:58 Negative Negative Final Ketones [Mass/volume] in Urine by Automated test strip 09/25/2024 16:15:58 Negative Negative (mg/dL) Final Specific gravity, Urine 09/25/2024 16:15:58 1.020 1.003-1.030 Final Hemoglobin [Presence] in Urine by Automated test strip 09/25/2024 16:15:58 Negative Negative Final pH, Urine 09/25/2024 16:15:58 6.5 5.0-7.5 (Units) Final Protein [Mass/volume] in Urine by Automated test strip 09/25/2024 16:15:58 Negative Negative (mg/dL) Final Urobilinogen [Mass/volume] in Urine by Automated test strip 09/25/2024 16:15:58 Normal Normal (mg/dL) Final Nitrite [Presence] in Urine by Automated test strip 09/25/2024 16:15:58 Negative Negative Final Leukocyte esterase [Presence] in Urine by Automated test strip 09/25/2024 16:15:58 Negative Negative Final RBC, Urine 09/25/2024 16:15:58 0-2 0-2 (/HPF) Final WBC, Urine 09/25/2024 16:15:58 0-2 0-2 (/HPF) Final Bacteria [#/area] in Urine sediment by Microscopy high power field 09/25/2024 16:15:58 0-25 0-25 (/HPF) Final Performing Location [facility] - [facility] [address] [facility] [address]
--- OUTSIDE RECORDS SUMMARY | 2024-10-05 09:31 | External Medical Summary | Summary of Care ---
Author Name Unknown Organization [facility] Address [address] [facility] [place] [address] Phone [phone] Care Team Providers Care Scoop Filler Name Role Phone Cristhian Johnson MD Primary Care Provider + Encounter Details Date Type Department Care Team (Late st Contact Info) Description 09/19/2024 Orders Only PATIENT PORTAL DO NOT DELETE THIS DEPT USED BY [place] [id number] Allergies Active Allergy Reactions Criticality Noted Date Comments Cat Dander Medium 11/28/2018 Dog Dander Low 11/28/2018 Pollen Medium 11/28/2018 Per transferring facility records documented as of this encounter (statuses as of 09/19/2024) Medications CPAP every night at bedtime. Active [...] for 7 days. 14 Capsule 4 09/20/20 Active Testosterone 20.25 MG/ACT (1.62%) Transdermal Gel (AndroGel Pump)Indications: Primary testicular hypogonadism Apply 3 Act topically to affected area in the morning. to clean, dry, unbroken skin on the shoulders or upper arms.. 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 [address] [place] [address] Cristhian Johnson MD [address] [place] [address] 03/27/2025 2:40 PM EDT Telemedicine Endocrinology Frank [address] [place] [phone] Elsa Emmanuel MD [address] [place] [address] [address] Scheduled Procedures Name Priority Associated Diagnoses [...] this encounter Medical Devices Implanted Type Area Signal Apprentice Device Identifier Shelf Expiration Date Model / Serial / Lot Cover Bur Hol Ti Lo 17 421.527 - [id number] Implanted:Qty: 1 on 02/03/2021 by Tone Paz III, MD at [facility] Left: Head SYNTHES MAXILLOFACIAL 02/05/2021 421.527 / / Screw Ti Lo Pro Sd 4mm 400.834 - [id number] Implanted:Qty: 2 on 02/03/2021 by Tone Paz III, MD at [place] [facility] Left: Head SYNTHES MAXILLOFACIAL 02/05/2021 400.834 / / documented as of this encounter Advance Directives Documents on File Type Date Recorded Patient Body Corporate Manager Expl anation Power of Avionics Supervisor 11/29/2018 Miryam Alessiaharlan lilia Contreras POWER OF VACUUM CLEANER OPERATOR * Full Code (Latest Code Status on [...] the patient have Health Care Power of Avionics Supervisor? Yes, in chart and reviewed as current [...] 07/10/2019 11:54 AM 07/29/2019 5:57 PM This orde r reflects the patients wishes and were consensually agreed upon. Question Answer Comments Discussion of Advance Directives occurred with: Not Discussed Does the patient have a Living Will? Yes, not cu rrently available Does the patient have Health Care Power of Avionics Supervisor? Yes, not currently available * Full Code [...] the patient have Health Care Power of Avionics Supervisor? Yes, in chart and reviewed as current Healthcare Agents on File Name Relationship Healthcare Agent Relationship Communication Jovanni Contreras Adult Child First Alternat e Health Care Agent Miryam Ben Spouse Health Care Agent [email or web address] Care Teams Scoop Filler Relationship Specialty Start Date End Date Cristhian Johnson MD [address] [place] [address], [place] [address] PCP - General Internal Medicine 08/18/20 documented as of this encounter
--- OUTSIDE RECORDS SUMMARY | 2024-10-05 09:31 | External Medical Summary | Summary of Care ---
Author Name Unknown Organization [facility] Address [address] [place] [address] Phone [phone] Care Team Providers Care Optical Engineering Technician Name Role Phone Cristhian Johnson MD Primary Care Provider + Reason for Referral * Evaluate & Treat - Unlimited Visits (Within 10 days (routine)) - Authorized Specialty Diagnoses / Procedures Referred By Doc valdez Referred To Contact Dermatology Diagnoses Hx of melanoma in situ Itchy skin Cristhian Johnson MD [address] [place] [address] Phone: tel: fax: Referral ID Status Reason Start Date Expiration Date Visits Requested Visits Authorized [id number] Authorized Specialty Services Required [phone] Question Answer Referral Priority Within 10 days (routine) Where should this appointment be scheduled? [facility] Are you referring the patient for Mohs Surgery and have a current positive skin cancer biopsy result? No What is the reason for the patient referral? Return for previous melanoma * Evaluate & Treat - Unlimited Visits (Within 30 days (routine)) - Authorized Specialty Diagnoses / Procedures Referred By Doc t Referred To Contact Otolaryngology Diagnoses Chronic maxillary sinusitis Cristhian Johnson MD [address] [place] [address] Phone: tel: fax: Referral ID Status Reason Start Date Expiration Date Visits Requested Visits Authorized [id number] Authorized Specialty Services Required [phone] Question Answer Referral Priority Within 30 days (routine) Where should this appointment be scheduled? [facility] Reason for Referral Nasal/Sinus/Allergy Conditions Specific Condition: Chronic Sinusitis Reason for Visit * Reason Comments Re-Check Routine check up Cough Ongoing for about 2 months - productive for small amount of green mucous Runny Nose Other Itchy spot to cheek; also discuss if due for colonoscopy Back Pain Soreness to back - s tates he is working out Encounter Details Date Type Department Care Team (Late st Contact Info) Description 09/25/2024 3:40 PM EST Office Visit General Internal Medicine [facility] [place] [address] [facility] [place] [address] Cristhian Johnson MD [address] [place] [address] EMBEDDED SOFTWARE ENGINEER lymphoma*; 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; MAULIK on CPAP; Primary testicular hypogonadism; Elevated LDL cholesterol level; Hypercalcemia; Chronic maxillary sinusitis; Hx of melanoma in situ; Itchy skin; Bilateral flank pain Allergies Active Allergy Reactions [...] of lymph nodes of multiple regions 10/14/2021 EMBEDDED SOFTWARE ENGINEER 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 History of GI bleed 08/18/2020 [...] 08/20/2020 02/16/20 23 Dry cough 02/25/2020 08/17/2020 SHAY (dyspnea on exertion) 02/25/2020 Mild intermittent asthma [...] mRNA, LNP-s, No Pre serve, 2-Dose Series ([employer]) 11/19/2020 Covid-19, Mrna, Lnp-s, Pf, B ivalent, [...] Passive Smoke Exposure: Past Smokeless Tobacco: Never Tobacco Cessation:Counseling Given: Not Answered Alcohol Use Standard Drinks/Week Comments Not Currently [...] 03/22/2024 Does the household have a re lar source of income? (Household - for ages [...] on file documented as of this encounter Last Filed Vital Signs Vital Sign Reading Time Taken Comments Blood Pressure 110/72 09/25/2024 3:26 PM EST Pulse 68 09/25/2024 3:26 PM EST Temperature 36.9 C (98.4 F) 09/25/2024 3:26 PM ES T Respiratory Rate 14 09/25/2024 3:26 PM EST Oxygen Saturation - - Inhaled Oxygen Concentration - - Weight 101.2 kg (223 lb 3.2 oz) 09/25/2024 3:26 PM EST Height - - Body Mass Index 31.13 02/22/2024 9:33 AM EDT documented in this encounter Functional Status * Are you [...] 03/02/2021 3:36 PM EDT Mraj Lin RN * Do you have difficulty [...] Marj Lin RN documented in this encounter Progress Notes * Cristhian Johnson MD - 09/25/2024 4:08 PM EST Chief Complaint Patient presents with Re-Check Routine check up Cough Ongoing for about 2 months - productive for small amount of green mucous Runny Nose Other Itchy spot to cheek; also discuss if due for colonoscopy Back Pain Soreness to back - states he is working out SUBJECTIVE: Memo Contreras is a 64 year old male with PMH as below who presents for f/u EMBEDDED SOFTWARE ENGINEER lymphoma, maulik, h/o melanoma, no cp, sob, shay. Has had runny nose, post nasal drip, congestion for 2 months. Occasional green mucous, feels like allergy to him. Nasal drip causes cough, no chest congestion. No fevers, chills. Was worse after flu shots. 2 abx with minimally improvement. No nose bleeds. Also feels lesionleft cheek more itchy, missed derm visit this summer. No n/v/d has been exercising a lot, doing squats, lower bilateral flank pain with movement, not severe, urinating ok. Using cpap. Follows with heme onc at [facility] for lymphoma history, sees allergy for ivig. 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 Spacer/Aero-Holding Chambers Device Use with inhaler. 1 Each 0 Acyclovir 800 MG Oral Tablet (Zovirax) Take 1 Tablet by mouth in the morning and 1 Tablet before bedtime. Ventolin HFA 108 (90 Base) MCG/ACT Inhalation Aerosol Solution Inhale 2 Puffs by mouth every 4 hours as needed for Wheezing. 8 g 0 Testosterone 20.25 MG/ACT (1.62%) Transdermal Gel (AndroGel Pump) Apply 3 Act topically to affectedarea in the morning. to clean, dry, unbroken skin on the shoulders or upper arms.. 450 g 0 Fluticasone Propionate 50 MCG/ACT Nasal Suspension (Flonase) Administer 2 Sprays into each nostril in the morning. 16 g 1 No current facility-administered medications for this visit. Review of patient's allergies indicates: Allergen Reactions Cat Dander Pollen Per transferring facility records Dog Dander Health Maintenance Due Topic Date Due COVID-19 Vaccine ( season) 2024 Depression Screening 08/24/2024 ROS: CONSTITUTIONAL: No fevers, sweats, or chills PULMONARY: No wheezing, No rales, No shortness of breath, and No recent change in breathing CARDIOVASCULAR: No chest pain, No shortness of breath, No dyspnea on exertion, No orthopnea, No paroxysmal nocturnal dyspnea, No edema, No palpitations, and No syncope GASTROINTESTINAL: No abdominal pain, No change in bowel habits, No significant heartburn, No significant change in appetite, No nausea, vomiting, diarrhea, or constipation, No hematemesis, No blood in stools or black tarry stools, No abdominal bloating or early satiety, and No dysphagia ALL OTHER SYSTEMS NEGATIVE I reviewed social, PMH, PSH, and family history and updated where needed. Social History Socioeconomic History Marital status: Spouse name: Not on file Number of children: 3 Years of education: Not on file Highest education level: Not on file Occupational History Occupation: retired Tobacco Use Smoking status: Never Passive exposure: Past Smokeless tobacco: Never Vaping Use Vaping status: Never Used Substance and Sexual Activity Alcohol use: Not Currently Drug use: Never Sexual activity: Not on file Other Topics Concern Not on file Social History Narrative Not on file Social Needs Financial Resource Strain: Low Risk (03/22/2024) Financial Resource Strain Do you have any trouble paying for your medications, or do you think you might in the future? (Adult - for ages 18 years and over): No Does your family have trouble paying for medicine? (Household - for ages 0-17 years): Not on file Food Insecurity: No Food Insecurity (03/22/2024) Food Insecurity Do you need food for this week? (Adult - for ages 18 years and over): No Are you able to get enough food for your family? (Household - for ages 0-17 years): Not on file Does your family need food this week? (Household - for ages 0-17 years): Not on file Do you always have enough food for your family? (Household - for ages 0-17 years): Not on file Transportation Needs: No Transportation Needs (03/22/2024) Transportation Needs Do you have trouble getting a ride to medical visits or work? (Adult - for ages 18 years and over):Never True Does your family have a hard time getting a ride to doctors visits? (Household - for ages 0-17 years): Not on file Has lack of transportation kept you from medical appointments, meetings, work, or from getting things needed for daily living? Check all that apply. (Adult - for ages 18 years and over): Not on file Do you (or your family) have trouble finding or paying for a ride (transportation)? (Household - for ages 0-17 years): Not on file Social Connections: Socially Integrated (03/22/2024) Social Connections How often do you feel lonely or isolated from those around you? (Adult - for ages 18 years and over): Never Housing Stability: Low Risk (03/22/2024) Housing Stability Do you currently live in a long-term or have no steady place to sleep at night? (Adult - for ages 18 years and over): No Do you think you are at risk of becoming homeless? (Adult - for ages 18 years and over): No Does your family worry about paying for your home or becoming homeless? (Household - for ages 0-17 years): Not on file Are you homeless or worried that you might be in the future? (Adult - for ages 18 years and over): Not on file Are you (or your family) homeless or worried that you might be in the future? (Household - for ages0-17 years): Not on file Past Medical History: Diagnosis Date Acute blood loss anemia 11/28/2018 Asthma, mild persistent 08/18/2020 BPH with obstruction/lower urinary tract symptoms 08/18/2020 Cellulitis of scrotum 07/28/2019 Diffuse large B cell lymphoma (HCC) SHAY (dyspnea on exertion) 02/25/2020 GIB (gastrointestinal bleeding) 11/28/2018 Likely 2/2 abdominal mass concerning for cancer History of GI bleed 08/18/2020 History of non-Hodgkin's lymphoma 10/1999 testicular NHL, Treated at [facility]- orchiectomy, radiation, chemotherapy (? 6 or 8 cycles of CHOP) plus 6 cycles of IT MTx Immunodeficiency (HCC) 08/18/2022 Low testosterone 08/18/2020 Right renal mass 11/28/2018 Sleep apnea, obstructive Urinary retention 11/28/2018 On flomax Past Surgical History: Procedure Laterality Date BRONCHOSCOPY, DIAGNOSTIC N/A 11/08/2019 BRONCHOSCOPY DIAGNOSTIC WITH OR WITHOUT WASHING performed by José Manuel Grant MD [place] [facility] [place]ONOSCOPY, DIAGNOSTIC (RECTUM) N/A 11/30/2018 COLONOSCOPY FLEXIBLE PROXIMAL DIAGNOSTIC performed by Royal Christie MD at [facility] [facility] [place]ONOSCOPY, DIAGNOSTIC (RECTUM) 11/01/2022 benign adenomatous polyps, repeat 5 yrs / COLONOSCOPY FLEXIBLE PROXIMAL DIAGNOSTIC performed by Marco Antonio Perez MD at [facility] EGD, FLEXIBLE, DIAGNOSTIC N/A 11/30/2018 ESOPHAGOGASTRODUODENOSCOPY (EGD), FLEXIBLE, TRANSORAL, DIAGNOSTIC performed by Royal Christie MD at [facility] [facility] INFORMATION Right 07/29/2015 [facility]-chal[facility]ion ORCHIECTOMY, PARTIAL 1999 STEREOTAXIC BIOPSY W/CAT SCAN Left 02/03/2021 STEREOTACTIC BRAIN BIOPSY WITH TOMOGRAPHY OR MAGNETIC GUIDANCE performed by Tone Paz III, [place] [facility] Family History Problem Relation Name Age of Onset Other (Natural causes) Mother age 93 Prostate cancer Father Brain cancer Grandfather (Maternal) OBJECTIVE: PHYSICAL EXAM: BP 110/72 (BP Site: Left Arm, BP Position: Sitting, BP Cuff Size: Large) | Pulse 68 | Temp 98.4 F(36.9 C) (Tympanic) | Resp 14 | Wt 223 lb 3.2 oz (101.2 kg) | BMI 31.13 kg/m | BSA 2.25 m General: alert, healthy, and no distress Head: Normocephalic, No masses, lesions, or abnormalities then round brown lesion left cheek Eye Exam: conjunctiva are pink and non-injected, sclera clear Ears: External ears normal, Canals clear, TM's Normal Heart: regular rate & rhythm, no murmur, no gallops, PMI non-displaced, S-1 normal, and S-2 normal Lungs: normal respiratory rate and rhythm, lungs clear to auscultation Extremities: no edema, no clubbing, no cyanosis Neuro Exam: alert with fluent speech, gait normal Nose: mild erythema, edema no purulence seen Psych: normal affect, no flight of ideas or tangential thought, good eye contact, no pressured speech Back: no masses or tenderness lower back, no cva tenderness 08/23/24 brain mri: Calvarium is unchanged. Orbits are unremarkable. Mucosal thickening of the paranasal sinuses most pronounced in the maxillary sinuses. 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 Trial flonase given feels allergy, and cont neddi pot The potential side effects of this medication have been discussed with the patient. Call if any significant problems with these are experienced. Ent if persistent Hx of melanoma in situ - DERMATOLOGY REFERRAL OP Get back to derm for this and skin lesion face Itchy skin - DERMATOLOGY REFERRAL OP Lesion on face, will get back to derm Bilateral flank pain - URINALYSIS WITH MICROSCOPIC EXAM; Future; Expected date: 09/25/2024 Likely mskt, but check urine exclude blood Follow Up: Return in about 6 months (around 03/26/2025), or if symptoms worsen or fail to improve, for Labs Today, Fasting Labs 2-5 Days Before Next Visit. | For: Labs Today, Fasting Labs 2-5 Days Before Next Visit Cristhian Johnson MD documented in this encounter Nursing Notes * Roger Avery RN - 09/25/2024 3:25 PM EST Chief Complaint Patient presents with Re-Check Routine check up Cough Ongoing for about 2 months - productive for small amount of green mucous Runny Nose Other Itchy spot to cheek; also discuss if due for colonoscopy Back Pain Soreness to back - states he is working out documented in this encounter Plan of Treatment Upcoming Encounters Date Type Department Care Team (Late st Contact Info) Description 11/27/2024 10:30 AM EST Office Visit Otolaryngology [facility] [address] [place] [address] Jose D Holbrook DO [address] [place] [address] 03/27/2025 2:40 PM EDT Telemedicine Endocrinology [address] [place] [phone] Elsa Emmanuel MD [address] [id number] 07/08/2025 1:00 PM EDT Office Visit General Internal Medicine [facility] [address] [facility] [place] [address] Cristhian Johnson MD [address] [place] [address] Pending Results Name Type Priority Associated Diagnoses Date /Time URINALYSIS WITH MICROSCOPIC EXAM Lab Routine Bilateral flank pain 09/25/2024 4:15 PM EST Scheduled Orders Name Type Priority Associated Diagnoses Orde r Schedule LIPID PANEL WITH DIRECT LDL IF TG IS HIGH Lab Routine Elevated LDL cholesterol level Expected: 03/26/2025, Expires: 09/25/2025 URINALYSIS WITH MICROSCOPIC EXAM Lab Routine Bilateral flank pain Expected: 09/25/2024 (Approximate), Expires: 09/25/2025 Scheduled Procedures Name Priority Associated Diagnoses Date/Ti me COLONOSCOPY FLEXIBLE PROXIMAL DIAGNOSTIC Recall History of colon polyps Scheduled Referrals Name Type Priority Associated Diagnoses Order Schedule ADULT/PEDS OTOLARYNGOLOGY REFERRAL OP Referral Within 30 days (routine) Chronic maxillary sinusitis Ordered: 09/25/2024 DERMATOLOGY REFERRAL OP Referral Within 1 0 days (routine) Hx of melanoma in situ Itchy skin Ordered: 09/25/2024 Health Maintenance Due Date Last Done Comments [...] this encounter Medical Devices Implanted Type Area Measurement And Verification Engineer Device Identifier Shelf Expiration Date Model / Serial / Lot Cover Bur Hol Ti Lo 17 [id number] - [id number] Implanted:Qty: 1 on 02/03/2021 by Tone Paz III, [place] [facility] [place]: Head SYNTHES MAXILLOFACIAL 02/05/2021 [id number] / / Screw Ti Lo Pro Sd 4mm 400.834 - [id number] Implanted:Qty: 2 on 02/03/2021 by Tone Paz III, [place] 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 MAULIK on CPAP Obstructive sleep apnea (adult) (pediatric) Primary testicular hypogonadism Other testicular hypofunction Elevated LDL cholesterol level Pure hypercholesterolemia Hypercalcemia Chronic maxillary sinusitis Hx of melanoma in situ Personal history of malignant melanoma of skin Itchy skin Unspecified pruritic disorder Bilateral flank pain Abdominal pain, unspecified site documented in this encounter Advance Directives Documents on File Type Date Recorded Patient Surgery Aid Expl anation Power of Telephone Station Repairer 11/29/2018 Miryam Contreras POWER OF DEICER KIT ASSEMBLER * Full Code (Latest Code Status on [...] the patient have Health Care Power of Telephone Station Repairer? Yes, in chart and reviewed as current [...] the patient have Health Care Power of Telephone Station Repairer? Yes, not currently available * Full Code [...] the patient have Health Care Power of Telephone Station Repairer? Yes, in chart and reviewed as current Healthcare Agents on File Name Relationship Healthcare Agent Relationship Communication Jovanni Contreras Adult Child First Alternat e Health Care Agent Miryam Contreras Spouse Health Care Agent [email or web address] Care Teams Optical Engineering Technician Relationship Specialty Start Date End Date Cristhian Johnson MD [address] [place] [address] PCP - General Internal Medicine 08/18/20 documented as of this encounter"
--- OUTSIDE RECORDS SUMMARY | 2024-10-05 09:31 | External Medical Summary | Summary of Care ---
Author Name Unknown Organization [facility] Address [address] [facility] [place] [address] Phone [phone] Care Team Providers Care Floor Director Name Role Phone Cristhian Johnson MD Primary Care Provider + Reason for Visit * Reason Comments Outpatient Testing Encounter Details Date Type Department Care Team (Late st Contact Info) Description 09/16/2024 12:30 PM EST Laboratory Laboratory [facility] [place] [address] [place] [id number] [facility] [address] [place] [address] Elevated cholesterol with elevated triglycerides Allergies Active [...] of lymph nodes of multiple regions 10/14/2021 SEAM TAPER MACHINE 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 History of GI bleed 08/18/2020 [...] mRNA, LNP-s, No Pre serve, 2-Dose Series ([employer]) 11/19/2020 Covid-19, Mrna, Lnp-s, Pf, B ivalent, 30 Mcg, IM, 12 yrs and above ([employer]) 08/24/2022 DTaP Dipth/Tet/Acell Pertussis ([employer]), Peds 01/26/2021,09/28/2020,07/28/2020 [...] Office Visit General Internal Medicine [facility] [address] [place] [address] Cristhian Johnson MD [address] [place] [address] 03/27/2025 2:40 PM EDT Telemedicine Endocrinology [address] [place] [phone] Elsa Emmanuel MD [address] [facility] [place] [address] Pending Results Name Type [...] this encounter Medical Devices Implanted Type Area Turret Punch Press Operator Device Identifier Shelf Expiration Date Model / Serial / Lot Cover Bur Hol Ti Lo 17 [id number] Implanted:Qty: 1 on 02/03/2021 by Tone Paz III, [place] [facility] [place]: Head SYNTHES MAXILLOFACIAL 02/05/2021 [id number] / / Screw Ti Lo Pro Sd 4mm 400.834 - [id number] Implanted:Qty: 2 on 02/03/2021 by Tone Paz III, [place] [facility] [place]: Head SYNTHES MAXILLOFACIAL 02/05/2021 400.834 / / documented as of this encounter Visit Diagnoses Diagnosis Elevated cholesterol with elevated triglycerides Mixed hyperlipidemia documented in this encounter Advance Directives Documents on File Type Date Recorded Patient Developmental Psychologist Expl anation Power of Risk Compliance Manager 11/29/2018 Miryam Contreras POWER OF PEER EDUCATOR * Full Code (Latest Code Status on [...] the patient have Health Care Power of Risk Compliance Manager? Yes, in chart and reviewed as current [...] the patient have Health Care Power of Risk Compliance Manager? Yes, not currently available * Full Code [...] the patient have Health Care Power of Risk Compliance Manager? Yes, in chart and reviewed as current Healthcare Agents on File Name Relationship Healthcare Agent Relationship Communication Jovanni Contreras Adult Child First Alternat e Health Care Agent Miryam Contreras Spouse Health Care Agent [email or web address] Care Teams Floor Director Relationship Specialty Start Date End Date Cristhian Johnson MD [address] [place] [address] PCP - General Internal Medicine 08/18/20 documented as of this encounter
--- OUTSIDE RECORDS SUMMARY | 2024-10-05 09:32 | External Medical Summary | Summary of Care ---
Author Name Unknown Organization [facility] Address [address] [facility] [place] [address] Phone [phone] Care Team Providers Care Certified Physician'S Assistant Name Role Phone Cristhian Johnson MD Primary Care Provider + Encounter Details Date Type Department Care Team (Late st Contact Info) Description 08/06/2024 3:40 PM EDT Telemedicine Family Practice [facility] [address] [facility] [place] [address] Hollie Murphy PA-C [address] [facility] [place] [address] Acute maxillary sinusitis, recurrence not specified* Allergies Active Allergy Reactions Criticality Noted Date Comments Cat Dander Medium 11/28/2018 Dog Dander Low 11/28/2018 Pollen Medium 11/28/2018 Per transferring facility records documented as of this encounter (statuses as of 08/06/2024) Medications Medication Sig Dispensed Refills Start Date End Date Status CPAP every night at bedtime. Active Spacer/Aero-Holding Chambers DeviceIndications:Br onchitis, complicated Use with inhaler. 1 Each 05/06/2022 Active Acyclovir 800 MG Oral Tablet (Zovirax) Take 1 Tablet by mouth in the morning and 1 Tablet before bedtime. 02/03/2023 Active Ventolin HFA 108 (90 Base) MCG/ACT Inhalation Aerosol SolutionIndications: Bronchitis, complicated Inhale 2 Puffs by mouth every 4 hours as needed for Wheezing. 8 g 01/17/2024 Active Testosterone 20.25 MG/ACT (1.62%) Transdermal Gel (AndroGel Pump)Indications:Kelsy karley testicular hypogonadism Apply 3 Act topically to affected area in the morning. to clean, dry, unbroken skin on the shoulders or upper arms.. 450 g 05/14/2024 Active Amoxicillin-Pot Clavulanate 875-125 MG Oral Tablet (Augmentin)Indicatio ns:Acute maxillary sinusitis, recurrence not specified Take 1 Tablet by mouth in the morning and 1 Tablet before bedtime. Do all this for 10 days. 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 Asthma, mild persistent 08/18/2020 Low testosterone 08/18/2020 S/P autologous bone marrow transplantation 07/10 Overview: Chemotherapy:BEAM 4.44^10e8/Kg (480 mls) Day 0: 07/16/2019 Diffuse large B-cell lymphom a of extranodal site excluding spleen and other solid organs 11/30/2018 MAULIK on CPAP 11/28/2018 documented as of this encounter (statuses as of 08/06/2024) Resolved Problems Problem Noted Date Diagnosed Date Resolved Date Prediabetes 02/02/2022 09/22/2022 Antineoplastic chemotherapy induced pancytopenia 12/31/2021 08/24/2023 Hypokalemia 03/06/2021 12/31/2021 Hyperbilirubinemia 03/06/2021 Overview: Due to MTX Metabolic alkalosis 03/06/2021 01/01/20 [...] 12/14/2018 02/15/2023 GIB (gastrointestinal bleeding) 11/28/2018 08/18/2020 Overview: Likely 2/2 abdominal mass concerning for cancer Acute blood loss anemia 11/28/2018 03/2 02/2022 Right renal mass 11/28/2018 02/15/2023 Urinary retention 11/28/2018 08/18/2020 Overview: On flomax documented as of this encounter (statuses as of 08/06/2024) Immunizations Name Administration Dates Next Due COVID-19 mRNA, LNP-s, No Pre serve, 2-Dose Series ([employer]re[employer]) 11/19/2020 Covid-19, Mrna, Lnp-s, Pf, B ivalent, 30 Mcg, IM, 12 yrs and above (Streem) 08/24/2022 DTaP Dipth/Tet/Acell Pertussis (Infanrix), Peds 01/26/2021,09/28/2020,07/28/2020 [...] Assigned at Male 08/18/2020 9:54 AM EST Gender Identity Male 08/18/2020 9:54 AM EST Sexual Orientation Straight 08/18/2020 9: 54 AM EST Job Start Date Occupation Industry Not on file Not on file Not on file documented as of this encounter Functional Status Functional Status Response Date of Assess ment Are you deaf or do you have serious difficulty h earing? No 03/02/2021 Are you blind or do you have serious difficulty seeing, even when wearing glasses? No 03/02/2021 Do you have serious difficul ty walking or climbing stairs? (5 years old or older) No 03/02/2021 Do you have difficulty dress ing or bathing? (5 years old or older) No 03/02/2021 Because of a physical, menta l, or emotional condition, do you have difficulty doing errands alone such as visiting a doctor s office or shopping? (15 years old or older) No 03/02/20 21 Cognitive Status Response Date of Assessm ent Because of a physical, menta l, or emotional condition, do you have serious difficulty concentrating, remembering, or making decisions? (5 years old or older) No 03/02/2021 documented as of this encounter Progress Notes * Katherine Hollie Godwin, JEANNETTE - 08/06/2024 4:25 PM EDT Images from the original note were not included. Patient location: HOME. I was in a hospital or clinic location. After connecting through televideo,patient was verified with two unique identifiers. Patient (or authorized legal technical account representative) was then informed that this was a Telemedicine visit and being conducted confidentially over secure lines. Methods to assure confidentiality were taken. Patient acknowledged consent and understanding of pr ivacy and security of the Telemedicine visit. The patient agreed to participate. History of Present Illness Memo Contreras is a 64 year old male that presents for No chief complaint on file. Patient is a 64-year-old male who presents today with respiratory symptoms for over a month. He notes ear discomfort, some facial pressure,nasal congestion, some pn drip, cough/dry, some throat tightness Tried lozenger, saline spray, renae pot Physical Exam There were no vitals filed for this visit. General: alert, healthy, no distress, well nourished, well developed, and cooperative Head: Normocephalic, No masses, lesions, tenderness or abnormalities Eye Exam: PERRLA, extraocular movements intact, conjunctiva are pink and non- injected, sclera clear Lungs: chest symmetric with normal AP diameter, no chest deformities noted, normal respiratory rateand rhythm, diaphragmatic excursion normal I have reviewed the following results: None Assessment and Plan Acute maxillary sinusitis, recurrence not specified (Primary) - Amoxicillin-Pot Clavulanate 875-125 MG Oral Tablet (Augmentin); Take 1 Tablet by mouth in the morning and 1 Tablet before bedtime. Do all this for 10 days. Wrap-Up Time: I spent a total of 20-29 minutes (exact time 21 mins) on the date of service in preparation, delivery, and documentation of the care provided to Memo Contreras excluding any time spent in the performance of separately billed services. documented in this encounter Plan of Treatment Upcoming Encounters Date Type Department Care Team (Late st Contact Info) Description 09/25/2024 3:40 PM EST Office Visit [facility] [address] [facility] [place] [address] Cristhian Johnson MD [address] [place] [address] 03/27/2025 2:40 PM EDT Telemedicine Endocrinology Darrell Paredes [place] [address] [place] [address] Elsa Emmanuel MD [address] [place] [address] Scheduled Procedures Name Priority Associated Diagnoses Date/Ti me COLONOSCOPY FLEXIBLE PROXIMAL DIAGNOSTIC Recall History of colon polyps Health Maintenance Due Date Last Done Comments Cologuard 2004 Fecal Occult Blood Test 2004 Sigmoidoscopy 2004 COVID-19 Vaccine ( - 2023- season) 2024 08/24/2022, 12/10/2020, 11/19/2020 Depression Screening 08/24/2024 08/24/2023 Pneumococcal Vaccine: 65+ Years (4 of 4 - PPSV23 or PCV20) 01/26/2026 01/26/2021, 07/28/2020, 03/19/2020, Additional history exists Diabetes Screening 07/05/2027 07/05/2024, 0 05/10/2024, 02/23/2024, Additional history exists Colonoscopy 11/01/2027 11/01/2022, 10/10, 11/30/2018, Additional history exists Colorectal Cancer Screening 11/01/2027 Lipid Panel 02/14/2029 02/15/2024, 110 05/2023, 02/15/2023, Additional history exists DTap/Tdap Vaccines [...] this encounter Medical Devices Implanted Type Area Goodwill Ambassador Device Identifier Shelf Expiration Date Model / Serial / Lot Cover Bur Hol Ti Lo 17 421.527 - [id number] Implanted:Qty: 1 on 02/03/2021 by Tone Paz III, MD at OR [facility] Left: Head SYNTHES MAXILLOFACIAL 02/05/2021 421.527 / / Screw Ti Lo Pro Sd 4mm 400.834 - [id number] Implanted:Qty: 2 on 02/03/2021 by Tone Paz III, MD at OR [facility] Left: Head SYNTHES MAXILLOFACIAL 02/05/2021 400.834 / / documented as of this encounter Visit Diagnoses Diagnosis Acute maxillary sinusitis, recurrence not specified- Primary documented in this encounter Advance Directives Documents on File Type Date Recorded Patient Special Service Representative Expl anation Power of Velvet Cutter 11/29/2018 Miryam Contreras POWER OF CHARGE ACCOUNT CLERK * Full Code (Latest Code Status [...] the patient have Health Care Power of Velvet Cutter? Yes, in chart and reviewed as current [...] the patient have Health Care Power of Velvet Cutter? Yes, not currently available * Full Code [...] the patient have Health Care Power of Velvet Cutter? Yes, in chart and reviewed as current Healthcare Agents on File Name Relationship Healthcare Agent Relationship Communication Jovanni Contreras Adult Child First Alternat e Health Care Agent Miryam Contreras Spouse Health Care Agent [email or web address]. [email or web address] Care Teams Certified Physician'S Assistant Relationship Specialty Start Date End Date Cristhian Johnson MD [address] [facility] [address] PCP - General Internal Medicine 08/18/20 documented as of this encounter
--- OUTSIDE RECORDS SUMMARY | 2024-10-05 09:32 | External Medical Summary | Summary of Care ---
Author Name Unknown Organization [facility] Address [address] [place] [address] Phone [phone] Care Team Providers Care Early Head Start Director Name Role Phone Cristhian Johnson MD Primary Care Provider + Reason for Visit * Reason Onset Date Comments Pre Cert/Prior Auth 04/25/2024 Testosterone 20.25 MG/ACT(1.62%) gel Encounter Details Date Type Department Care Team (Late st Contact Info) Description 04/25/2024 Telephone [facility] [place] [address] [place] [address] Elsa Emmanuel MD [address] [place] [address] Pre Cert/Prior Auth (Testosterone 20.25 MG... Allergies Active Allergy Reactions Criticality Noted Date Comments Cat Dander Medium 11/28/2018 Dog Dander Low 11/28/2018 Pollen Medium 11/28/2018 Per transferring facility records documented as of this encounter (statuses as of 04/25/2024) Medications Medication Sig Dispensed Refills Start Date End Date Status CPAP every night at bedtime. Active Spacer/Aero-Holding Chambers DeviceIndications:Bron chitis, complicated Use with inhaler. 1 Each 05/06/2022 Active Acyclovir 800 MG Oral Tablet (Zovirax) Take 1 Tablet by mouth in the morning and 1 Tablet before bedtime. 02/03/2023 Active Ventolin HFA 108 (90 Base) MCG/ACT Inhalation Aerosol SolutionIndications:Br onchitis, complicated Inhale 2 Puffs by mouth every 4 hours as needed for Wheezing. 8 g 01/17/2024 Active Testosterone 20.25 MG/ACT (1.62%) Transdermal Gel (AndroGel Pump)Indications:Prima ry testicular hypogonadism Apply 3 Act topically to affected area in the morning. to clean, dry, unbroken skin on the shoulders or upper arms.. 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 History of GI bleed [...] as of this encounter (statuses as of 04/25/2024) Resolved Problems Problem Noted Date Diagnosed Date [...] as of this encounter (statuses as of 04/25/2024) Immunizations Name Administration Dates Next Due COVID-19 mRNA, LNP-s, No Pre serve, 2-Dose Series ([email or web address]) 11/19/2020 Covid-19, Mrna, Lnp-s, Pf, B ivalent, 30 Mcg, IM, 12 yrs and above ([email or web address]) 08/24/2022 DTaP Dipth/Tet/Acell Pertussis (Infanrix), Peds 01/26/2021,09/28/2020,07/28/2020 H1N1 2009 Influenza, IM 07/04/2012 HIB PRP-T, 4 Dose, PF, IM (H iberix, ActHib) 01/26/2021,09/28/2020,07/28/2020 Hepatitis B, 20+ yrs 01/26/2021,09/28/2020,07/28 IPV - Polio Virus Vaccine (Inact) 09/28/2020, Meningococcal MCV4O Conjugat e Vaccine (Menveo) 09/28/2020,07/28/2020 Pneumococcal Conjugate Vacc, 13 Valent (Prevnar) 07/28/2020,03/19/2020,01/17/2020 Pneumococcal Polysaccharide PPV23 (Pneumovax) 01/26/2021,06/30/1997 Seasonal Influenza Virus Vac cine, Unspecified Formulation 11/21/2018,06/19/2018,07/23/2014,06/18,07/04/2012 Seasonal Influenza, PF, 6 M & above, IM , (FluLaval or Fluzone) 08/24/2022,07/28/2020,09/17/2019,06/19,07/23/2014,06/18/2013,07/04/2012 Seasonal Influenza, Split, I IV3, With Preserve, Inj 07/23/2014,06/18/2013,07/04/2012 TD - Tetanus/Diptheria (ADULT) 07/01/1997 TD, Preservative [...] No 03/02/2021 documented as of this encounter Miscellaneous Notes * Telephone Encounter - Monet Parks OSA - 04/25/2024 12:33 PM EDT Images from the original note were not included. Retail [facility] Pre-Cert Request Medication/Disease State Information: Medication: Testosterone 20.25 MG/ACT (1.62%) Transdermal Gel (AndroGel Pump) Directions for use: Apply 3 Act topically to affected area in the morning. to clean, dry, unbroken skin on the shoulders or upper arms.. Quantity prescribed: 450 G Diagnosis (including ICD-10): Primary testicular hypogonadism E29.1 Medication(s) Tried/Failed/Contraindicated: See corresponding visit note(s) for additional supporting clinical information. Office Information: Prescriber: Elsa Emmanuel Primary Visit Coverage Payer Plan Sponsor Code Group Number Group Name JOSE Chaney [place] ([facility]) MEDICARE ADVANTAGE [facility] [id number] Primary Visit Coverage Subscriber ID Name SSN Address [id number] JUSTIN CONTRERAS [id number] [place] [phone] [place] [phone] documented in this encounter Plan of Treatment Upcoming Encounters Date Type Department Care Team (Late st Contact Info) Description 06/06/2024 3:00 PM EDT Office Visit Dermatology[address] [id number] Damaris Fleming PA-C [address] [place] [address] [place] [address] 09/25/2024 3:40 PM EST Office Visit General Internal Medicine James [facility] [place] [address] [facility] [place] [address] Cristhian Johnson MD [address] [facility] [place] [address] 03/27/2025 2:40 PM EDT Telemedicine Endocrinology [address] [place] [address] Elsa Emmanuel MD [address] [facility] [place] [address] Scheduled Procedures Name Priority Associated Diagnoses Date/Ti me COLONOSCOPY FLEXIBLE PROXIMAL DIAGNOSTIC Recall History of colon polyps Health Maintenance Due Date Last Done Comments Cologuard 2004 Fecal Occult Blood Test 2004 Sigmoidoscopy 2004 COVID-19 Vaccine ( - 2022- season) 2023 08/24/2022, 12/10/2020, 11/19/2020 *SPIROMETRY ONCE FOR ASTHMA-ADULT 04/21/2024 Depression Screening 08/24/2024 08/24/2023 Pneumococcal Vaccine: 65+ Years (4 of 4 - PPSV23 or PCV20) 01/26/2026 01/26/2021, 07/28/2020, 03/19/2020, Additional history exists Diabetes Screening 02/22/2027 02/23/2024, 0 02/15/2024, 12/29/2023, Additional history exists Colonoscopy 11/01/2027 11/01/2022, 10/10, 11/30/2018, Additional history exists Colorectal Cancer Screening 11/01/2027 Lipid Panel 02/14/2029 02/15/2024, 05/2023, 02/15/2023, Additional history exists DTaP,Tdap,and Td Vaccines (5 - Td or Tdap) 01/26/2031 [...] this encounter Medical Devices Implanted Type Area Beekeeper Device Identifier Shelf Expiration Date Model / Serial / Lot Cover Bur Hol Ti Lo 17 [id number] - [id number] Implanted:Qty: 1 on 02/03/2021 by Tone Paz III, MD at OR [facility] Left: Head SYNTHES MAXILLOFACIAL 02/05/2021 421.527 / / Screw Ti Lo Pro Sd 4mm 400.834 - [id number] Implanted:Qty: 2 on 02/03/2021 by Tone Paz III, MD at OR [facility] Left: Head SYNTHES MAXILLOFACIAL 02/05/2021 400.834 / / documented as of this encounter Advance Directives Documents on File Type Date Recorded Patient Prison Officer Expl anation Power of Fibrous Wallboard Inspector 11/29/2018 Miryam Contreras POWER OF IT TECHNICIAN * Full Code (Latest Code Status on [...] the patient have Health Care Power of Fibrous Wallboard Inspector? Yes, in chart and reviewed as current * Full Code Date Activated Date Inactivated Comments 02/01/2021 2:22 AM 02/04/2021 8:40 PM This order reflects the patients wishes [...] the patient have Health Care Power of Fibrous Wallboard Inspector? Yes, not currently available * Full Code [...] the patient have Health Care Power of Fibrous Wallboard Inspector? Yes, in chart and reviewed as current Healthcare Agents on File Name Relationship Healthcare Agent Relationship Communication Jovanni Contreras Adult Child First Alternat e Health Care Agent Miryam Contreras Spouse Health Care Agent [email or web address] Care Teams Early Head Start Director Relationship Specialty Start Date End Date Cristhian Johnson MD [facility] [place] [address] PCP - General Internal Medicine 08/18/20 documented as of this encounter
--- OUTSIDE RECORDS SUMMARY | 2024-10-05 09:32 | External Medical Summary ---
Author Name Unknown Address Unknown Organization [facility] [address] [place] [address] Laboratory Report Ordering Provider Test Date Status JOE ROBBINS 09/16/2024 12:20:30 Final Observation Date Value Abnormality Reference (Units ) Status BUN 09/16/2024 12:20:30 18 6-20 (mg/dL) Final Creatinine 09/16/2024 12:20:30 1.1 0.6-1.2 (mg/dL) Final Glomerular filtration rate/1.73 sq M.predicted [Volume Rate/Area] in Serum, Plasma or Blood by Creatinine-based formula (CKD-EPI) 09/16/2024 12:20:30 72 >=60 (mL/min) Final eGFR is calculated based on the CKD-EPI 2020 equation. Sodium 09/16/2024 12:20:30 139 135-146 (m mol/L) Final Potassium 09/16/2024 12:20:30 4.4 3.5-5.1 (m mol/L) Final Cl 09/16/2024 12:20:30 102 98-107 (mm ol/L) Final CO2 09/16/2024 12:20:30 25 22-32 (mmo l/L) Final Anion gap 09/16/2024 12:20:30 12 7-15 (mmol /L) Final Glucose 09/16/2024 12:20:30 122 Above high normal 70 -120 (mg/dL) Final Albumin 09/16/2024 12:20:30 4.6 3.8-5.0 (g /dL) Final AST (Aspartate aminotransferase) 09/16/2024 12:20:30 31 10-50 (U/L) Fin al Alk Phos 09/16/2024 12:20:30 103 35-130 (U/ L) Final Bilirubin, Total 09/16/2024 12:20:30 0.5 <=1 .2 (mg/dL) Final Calcium 09/16/2024 12:20:30 10.8 Above high normal 8. 4-10.2 (mg/dL) Final Protein 09/16/2024 12:20:30 7.2 6.0-8.3 (g /dL) Final ALT (Alanine aminotransferase) 09/16/2024 12:20:30 46 10-50 (U/L) Aroldo bingham Performing Location [facility] [place] [address]
--- OUTSIDE RECORDS SUMMARY | 2024-10-05 09:32 | External Medical Summary | Summary of Care ---
Author Name Unknown Organization [facility] Address [address] [place] [address] Phone [phone] Care Team Providers Care Child Care Name Role Phone Cristhian Johnson MD Primary Care Provider + Reason for Visit * Reason Onset Date Comments Precert Approved 04/25/2024 Testosterone 20 .25 MG/ACT(1.62%) gel Encounter Details Date Type Department Care Team (Late st Contact Info) Description 04/25/2024 Telephone [facility] [place] [address] [place] [address] Elsa Emmanuel MD [address] [place] [address] Precert Approved (Testosterone 20.25 MG/AC... 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 Hx of melanoma in situ 10/21/2021 Overview: melanoma in situ (R lateral mid back 10/30) 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 10/14/2021 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 History of GI bleed 08/18/2020 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 Asthma, mild persistent 08/18/2020 Low testosterone 08/18/2020 S/P autologous bone marrow transplantation 07/10 Overview: Chemotherapy:BEAM 4.44^10e8/Kg (480 mls) Day 0: 07/16/2019 Diffuse large B-cell lymphom a of extranodal site excluding spleen and other solid organs 11/30/2018 MAULIK on CPAP 11/28/2018 documented as of this encounter (statuses as of 04/26/2024) Resolved Problems Problem Noted Date Diagnosed Date [...] GIB (gastrointestinal bleeding) 11/28/2018 08/18/2020 Overview: Likely 2/ abdominal mass concerning for cancer Acute blood loss anemia 11/28/2018 03/2 02/2022 Right renal mass 11/28/2018 02/15/2023 Urinary retention 11/28/2018 08/18/2020 Overview: On flomax documented as of this encounter (statuses as of 04/26/2024) Immunizations Name Administration Dates Next Due COVID-19 mRNA, LNP-s, No Pre serve, 2-Dose Series (Tap[employer]ge) 11/19/2020 Covid-19, Mrna, Lnp-s, Pf, B ivalent, 30 Mcg, IM, 12 yrs and above (TapSurge) 08/24/2022 DTaP Dipth/Tet/Acell Pertussis (Infanrix), Peds 01/26/2021,09/28/2020,07/28/2020 [...] Sponsor Code Group Number Group Name [facility]) MEDICARE ADVANTAGE [facility] PPO [id number] Primary Visit Coverage Subscriber ID Name SSN Address [id number] JUSTIN CONTRERAS [id number] [place] [phone] [place] to p [phone] documented in this encounter Plan of Treatment Upcoming Encounters Date Type Department Care Team (Late st Contact Info) Description 06/06/2024 3:00 PM EDT Office Visit Dermatology[address] [phone] Damaris Fleming PA-C [address] [place] [address] [place] Olivares [phone] 09/25/2024 3:40 PM EST Office Visit General Internal Medicine [address] [place] [address] [place] [address] Cristhian Johnson MD [address] [place] [address] 03/27/2025 2:40 PM EDT Telemedicine Endocrinology [address] [place] [phone] Elsa Emmanuel MD [address] [place] [address] Scheduled Procedures Name Priority Associated [...] this encounter Medical Devices Implanted Type Area Pigskin Trimmer Device Identifier Shelf Expiration Date Model / Serial / Lot Cover Bur Hol Ti Lo 17 421.527 - [id number] Implanted:Qty: 1 on 02/03/2021 by Tone Paz III, [place] [facility] [place]: Head SYNTHES MAXILLOFACIAL 02/05/2021 421.527 / / Screw Ti Lo Pro Sd 4mm 400.834 - [id number] Implanted:Qty: 2 on 02/03/2021 by Tone Paz III, MD [place] [facility] [place] Left: Head SYNTHES MAXILLOFACIAL 02/05/2021 400.834 / / documented as of this encounter Advance Directives Documents on File Type Date Recorded Patient Pediatric Assistant Expl anation Power of Manufacturer Agent 11/29/2018 Miryam Contreras POWER OF RPG DEVELOPER * Full Code (Latest Code Status on [...] the patient have Health Care Power of Manufacturer Agent? Yes, in chart and reviewed as current [...] the patient have Health Care Power of Manufacturer Agent? Yes, not currently available * Full Code [...] the patient have Health Care Power of Manufacturer Agent? Yes, in chart and reviewed as current Healthcare Agents on File Name Relationship Healthcare Agent Relationship Communication Jovanni Contreras Adult Child First Alternat e Health Care Agent Miryam Contreras Spouse Health Care Agent [email or web address] Care Teams Child Care Relationship Specialty Start Date End Date Cristhian Johnson MD [facility] [place] [address] PCP - General Internal Medicine 08/18/20 documented as of this encounter
--- OUTSIDE RECORDS SUMMARY | 2024-10-05 09:32 | External Medical Summary | Summary of Care ---
Author Name Unknown Organization [facility] Address [address] [place] [address] Phone [phone] Care Team Providers Care Ceramic Engineer Name Role Phone Cristhian Johnson MD Primary Care Provider + Reason for Visit * Reason Onset Date Comments Medication Refill 05/14/2024 Encounter Details Date Type Department Care Team (Late st Contact Info) Description 05/14/2024 Refill [facility] [place] [address] [place] [address] Elsa Emmanuel MD [address] [place] [address] Primary testicular hypogonadism Allergies Active Allergy Reactions Criticality Noted Date Comments Cat Dander Medium 11/28/2018 Dog Dander Low 11/28/2018 Pollen Medium 11/28/2018 Per transferring facility records documented as of this encounter (statuses as of 05/14/2024) Medications Medication Sig Dispensed Refills Start Date End Date Status CPAP every night at bedtime. Active Spacer/Aero-Holding Chambers DeviceIndications:B nabila, complicated Use with inhaler. 1 Each 05/06/2022 Active Acyclovir 800 MG Oral Tablet (Zovirax) Take 1 Tablet by mouth in the morning and 1 Tablet before bedtime. 02/03/2023 Active Ventolin HFA 108 (90 Base) MCG/ACT Inhalation Aerosol SolutionIndications :Bronchitis, complicated Inhale 2 Puffs by mouth every 4 hours as needed for Wheezing. 8 g 01/17/2024 Active Testosterone 20.25 MG/ACT (1.62%) Transdermal Gel (AndroGel Pump)Indications:Pr imary testicular hypogonadism Apply 3 Act topically to affected area in the morning. to clean, dry, unbroken skin on the shoulders or upper arms.. 450 g 05/14/2024 Active Testosterone 20.25 MG/ACT (1.62%) Transdermal Gel (AndroGel Pump)Indications:Pr imary testicular hypogonadism Apply 3 Act topically to affected area in the morning. to clean, dry, unbroken skin on the shoulders or upper arms.. 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 Asthma, mild persistent 08/18/2020 Low testosterone 08/18/2020 S/P autologous bone marrow transplantation 07/10 Overview: Chemotherapy:BEAM 4.44^10e8/Kg (480 mls) Day 0: 07/16/2019 Diffuse large B-cell lymphom a of extranodal site excluding spleen and other solid organs 11/30/2018 MAULIK on CPAP 11/28/2018 documented as of this encounter (statuses as of 05/14/2024) Resolved Problems Problem Noted Date Diagnosed Date Resolved Date Prediabetes 02/02/2022 09/22/2022 Antineoplastic chemotherapy induced pancytopenia 12/31/2021 08/24/2023 Hypokalemia 03/06/2021 12/31/2021 Hyperbilirubinemia 03/06/2021 Overview: Due to MTX Metabolic alkalosis 03/06/2021 01/01/20 22 Encounter for antineoplastic chemotherapy 03/03/2021 08/24/2023 REMINGTON (acute kidney injury) 02/22/2021 Anemia due to antineoplastic chemotherapy 02/18/2021 08/24/2023 Thrombocytopenia 02/18/2021 02/15/2023 REMINGTON (acute kidney injury) 02/18/2021 Small bowel obstruction 02/11/202103/2022 History of lymphoma 08/20/2020 02/16/20 23 Dry [...] as of this encounter (statuses as of 05/14/2024) Immunizations Name Administration Dates Next Due COVID-19 mRNA, LNP-s, No Pre serve, 2-Dose Series ([email or web address][employer]com) 11/19/2020 Covid-19, Mrna, Lnp-s, Pf, B ivalent, 30 Mcg, IM, 12 yrs and above ([email or web address][employer]com) 08/24/2022 DTaP Dipth/Tet/Acell Pertussis (Infanrix), Peds 01/26/2021,09/28/2020,07/28/2020 [...] No 03/22/2024 Does the household have a [facility] source of income? (Household - for ages [...] encounter Miscellaneous Notes * Telephone Encounter - Rashad Hawk MD - 05/14/2024 6:44 PM EDTSigned Prescriptions: Disp Refills Testosterone 20.25 MG/ACT (1.62%) Transder*450 g 0 Sig: Apply 3 Act topically to affected area in the morning. to clean, dry, unbroken skin on the shoulders or upper arms.. Authorizing Provider: RASHAD HAWK * Telephone Encounter - Liberty Morris LPN - 05/14/2024 10:58 AM EDT This medication has been pended for renewal in accordance with our office medication renewal policy.Pending Prescriptions: Disp Refills Testosterone 20.25 MG/ACT (1.62%) Transde*450 g 0 Sig: Apply 3 Act topically to affected area in the morning. to clean, dry, unbroken skin on the shoulders or upper arms.. Visit date not found (in office), 03/22/2024 (telemedicine) Visit date not found If no future appointments scheduled, and last appointment is greater than a year ago, please schedule patient for a follow-up appointment Last date the medication was ordered: 03/22/2024 Pharmacy: [id number] [address] [facility] Labs: Lab Results Component Value Date/Time TESTOSTERONE, FREE 28.6 (L) 02/15/2024 10:12 AM TESTOSTERONE, TOTAL - [facility] 56.0 (L) 01/04/2022 07:15 AM TESTOSTERONE, TOTAL, MS 181 (L) 02/15/2024 10:12 AM Lab Results Component Value Date/Time PSA - [facility] 1.92 02/15/2024 10:12 AM PSA - [facility] 0.75 08/21/2020 03:04 PM Lab Results Component Value Date/Time HGB 14.9 10/25/2022 10:43 AM HGB 12.3 (L) 09/28/2020 10:52 AM Lab Results Component Value Date/Time HCT 43.7 02/15/2024 10:12 AM HCT 34.9 (L) 09/28/2020 10:52 AM documented in this encounter Plan of Treatment Upcoming Encounters Date Type Department Care Team (Late st Contact Info) Description 06/06/2024 3:00 PM EDT Office Visit Dermatology[address] [address] Damaris Fleming PA-Yoshi [address] [place] [address] [place] [address] 09/25/2024 3:40 PM EST Office Visit General Internal Medicine [facility] [place] [address] [place] [address] Cristhian Johnson MD [address] [facility] [place] [address] 03/27/2025 2:40 PM EDT Telemedicine Endocrinology [address] [place] [phone] Elsa Emmanuel MD [address] [place] [address] Scheduled Procedures Name Priority Associated Diagnoses Date/Ti me COLONOSCOPY FLEXIBLE PROXIMAL DIAGNOSTIC Recall History of colon polyps Health Maintenance Due Date Last Done Comments Cologuard 2004 Fecal Occult Blood Test 2004 Sigmoidoscopy 2004 COVID-19 Vaccine ( - 2022- season) 2023 08/24/2022, 12/10/2020, 11/19/2020 Depression Screening 08/24/2024 08/24/2023 Pneumococcal Vaccine: 65+ Years (4 of 4 - PPSV23 or PCV20) 01/26/2026 01/26/2021, 07/28/2020, 03/19/2020, Additional history exists Diabetes Screening 02/22/2027 02/23/2024, 0 02/15/2024, 12/29/2023, Additional history exists Colonoscopy 11/01/2027 11/01/2022, 10/10, 11/30/2018, Additional history exists Colorectal Cancer Screening 11/01/2027 Lipid Panel 02/14/2029 02/15/2024, 1105/2023, 02/15/2023, Additional history exists DTaP,Tdap,and Td Vaccines [...] this encounter Medical Devices Implanted Type Area Beef Grader Device Identifier Shelf Expiration Date Model / Serial / Lot Cover Bur Hol Ti Lo 17 421.527 - [id number] Implanted:Qty: 1 on 02/03/2021 by Tone Paz III, MD at [place] [facility] [place] Left: Head SYNTHES MAXILLOFACIAL 02/05/2021 421.527 / / Screw Ti Lo Pro Sd 4mm 400.834 - [id number] Implanted:Qty: 2 on 02/03/2021 by Tone Paz III, MD at [place] [facility] [place] Left: Head SYNTHES MAXILLOFACIAL 02/05/2021 400.834 / / documented as of this encounter Visit Diagnoses Diagnosis Primary testicular hypogonadism Other testicular hypofunction documented in this encounter Advance Directives Documents on File Type Date Recorded Patient Bill Cutter Expl anation Power of Petroleum Refining Firer 11/29/2018 Miryam Contreras POWER OF COMPUTED TOMOGRAPHY TECHNICIAN * Full Code (Latest Code Status [...] the patient have Health Care Power of Petroleum Refining Firer? Yes, in chart and reviewed as current [...] the patient have Health Care Power of Petroleum Refining Firer? Yes, not currently available * Full Code [...] the patient have Health Care Power of Petroleum Refining Firer? Yes, in chart and reviewed as current Healthcare Agents on File Name Relationship Healthcare Agent Relationship Communication Jovanni Contreras Adult Child First Alternat e Health Care Agent Miryam Contreras Spouse Health Care Agent [email or web address] Care Teams Ceramic Engineer Relationship Specialty Start Date End Date Cristhian Johnson MD [address] [place] [address] PCP - General Internal Medicine 08/18/20 documented as of this encounter
--- OUTSIDE RECORDS SUMMARY | 2024-10-05 09:32 | External Medical Summary | Summary of Care ---
Author Name Unknown Organization [facility] Address [address] [facility] [address] Phone [phone] Care Team Providers Care Motor Grader Operator Name Role Phone Cristhian Johnson MD Primary Care Provider + Reason for Visit * Reason Comments Acute Encounter Details Date Type Department Care Team ([facility] st Contact Info) Description 09/13/2024 9:40 AM EST Telemedicine [address] [phone] José Manuel Peterson MD [address] [place] [phone] Acute maxillary sinusitis, recurrence not specified* Allergies Active Allergy Reactions Criticality Noted Date Comments Cat Dander Medium 11/28/2018 Dog Dander Low 11/28/2018 Pollen Medium 11/28/2018 Per transferring facility records documented as of this encounter (statuses as of 09/13/2024) Medications CPAP every night at bedtime. Active [...] days. 14 Capsule 4 09/20/20 24 Active Amoxicillin-Pot Clavulanate 875-125 MG Oral Tablet (Augmentin)Indic ations:Acute maxillary sinusitis, recurrence not specified Take 1 Tablet by mouth in the morning and 1 Tablet before bedtime. Do all this for 10 days. 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 Hx of melanoma in situ 10/21/2021 Overview (10/21/2021): melanoma in situ (R lateral mid back 10/30) 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 10/14/2021 NEWS ANALYST 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 History of GI bleed 08/18/2020 [...] as of this encounter (statuses as of 09/13/2024) Resolved Problems Problem Noted Date Diagnosed Date [...] as of this encounter (statuses as of 09/13/2024) Immunizations Name Administration Dates Next Due COVID-19 [...] of Assessment Author No 03/02/2021 3:36 PM EDMarj Gutierrez RN * Are you blind or do you have serious difficulty seeing, even when wearing glasses? Answer Date of Assessment Author No 03/02/2021 3:36 PM Marj Prieto RN * Do you have serious difficulty walking or climbing stairs? (5 years old or older) Answer Date of Assessment Author No 03/02/2021 3:36 PM Marj Prieto RN * Do you have difficulty dressing or bathing? (5 years old or older) Answer Date of Assessment Author No 03/02/2021 3:36 PM Marj Prieto RN * Because of a physical, mental, [...] Entry Date Author No 03/02/2021 3:36 PM Marj Prieto RN documented in this encounter Progress Notes * José Manuel Peterson MD - 09/13/2024 10:06 AM EST Images from the original note were not included. History of Present Illness Memo Contreras is a 64 year old male that presents for Acute URI symptoms x 4 weeks, treated with augmentin at the beginning of the month. Allergies in the past, but have been well controlled over the years without pets and kids out of the house Physical Exam There were no vitals filed for this visit. BP Readings from Last 3 Encounters: 02/22/24 110/72 01/17/24 112/72 08/24/23 110/74 Wt Readings from Last 3 Encounters: 02/22/24 215 lb 3.2 oz (97.6 kg) 01/17/24 215 lb 11.2 oz (97.8 kg) 08/24/23 220 lb 11.2 oz (100.1 kg) BMI Readings from Last 3 Encounters: 02/22/24 30.01 kg/m 01/17/24 30.08 kg/m 08/24/23 30.78 kg/m Ht Readings from Last 3 Encounters: 02/22/24 5' 11" (1.803 m) 08/24/23 5' 11" (1.803 m) 04/29/23 5' 11" (1.803 m) General; Normal cephalic, atraumatic Neuro/psych; CN grossly intact, normal gait, answering questions appropriately, normal mood/affect I have reviewed the following results: None Assessment and Plan Acute maxillary sinusitis, recurrence not specified (Primary) - Doxycycline Hyclate 100 MG Oral Capsule; Take 1 Capsule by mouth in the morning and 1 Capsule before bedtime. Do all this for 7 days. Take for 7 days. Discussed supportive tx, red flags, and return precautions Nasal steroid, H1 so, mucinex F/u with PCP if symptoms not improving Wrap-Up documented in this encounter Plan of Treatment Upcoming Encounters Date Type Department Care Team (Late st Contact Info) Description 09/25/2024 3:40 PM EST Office Visit General Internal Medicine [address] [place] [address] [place] [address] Cristhian Johnson MD [address] [place] [address] 03/27/2025 2:40 PM EDT Telemedicine Endocrinology [address] [place] [phone] Elsa Emmanuel MD [address] [place] [address] Scheduled Procedures Name Priority Associated Diagnoses Date/Ti [...] Cancer Screening 11/01/2027 Lipid Panel 02/14/2029 02/15/2024, 11/0 05/2023, 02/15/2023, Additional history exists DTap/Tdap Vaccines [...] encounter Medical Devices Implanted Type Area Supervisor Firearms Device Identifier Shelf Expiration Date Model / Serial / Lot Cover Bur Hol Ti Lo 17 421.527 - [id number] Implanted:Qty: 1 on 02/03/2021 by Tone Paz III[place] [facility] [place] Head SYNTHES MAXILLOFACIAL 02/05/2021 421.527 / / Screw Ti Lo Pro Sd 4mm 400.834 - [id number] Implanted:Qty: 2 on 02/03/2021 by Tone Paz III[place] [facility] [place] Head SYNTHES MAXILLOFACIAL 02/05/2021 400.834 / / documented as of this encounter Visit Diagnoses Diagnosis Acute maxillary sinusitis, recurrence not specified- Primary documented in this encounter Advance Directives Documents on File Type Date Recorded Patient Share Dairy Farmer Expl anation Power of Bullard Machine Operator 11/29/2018 Miryam Contreras POWER OF CRYPTOGRAPHY TEACHER * Full Code (Latest Code Status on [...] the patient have Health Care Power of Bullard Machine Operator? Yes, in chart and reviewed as current [...] the patient have Health Care Power of Bullard Machine Operator? Yes, not currently available * Full Code [...] the patient have Health Care Power of Bullard Machine Operator? Yes, in chart and reviewed as current Healthcare Agents on File Name Relationship Healthcare Agent Relationship Communication Jovanni Contreras Adult Child First Alternat e Health Care Agent Miryam Contreras Spouse Health Care Agent [email or web address] Care Teams Motor Grader Operator Relationship Specialty Start Date End Date Cristhian Johnson MD [address] [place] [address] PCP - General Internal Medicine 08/18/20 documented as of this encounter
--- OUTSIDE RECORDS SUMMARY | 2024-10-05 09:32 | External Medical Summary | Summary of Care ---
Author Name Unknown Organization [facility] Address [address] [facility] [address] Phone [phone] Care Team Providers Care Tip Length Checker Name Role Phone Cristhian Johnson MD Primary Care Provider + Reason for Visit * Reason Comments Outpatient Testing Encounter Details Date Type Department Care Team (Late st Contact Info) Description 09/16/2024 12:30 PM EST Laboratory Laboratory [facility] [place] [address] [place] [phone] [facility] [address] [place] [address] Elevated cholesterol with elevated triglycerides Allergies Active [...] of lymph nodes of multiple regions 10/14/2021 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 [place] [address] 03/27/2025 2:40 PM EDT Telemedicine Endocrinology [address] [place] [phone] Elsa Emmanuel MD [address] [facility] [place] [address] Pending Results Name Type [...] this encounter Medical Devices Implanted Type Area Steward/Stewardess Night Device Identifier Shelf Expiration Date Model / Serial / Lot Cover Bur Hol Ti Lo 17 421.527 [id number] Implanted:Qty: 1 on 02/03/2021 by Tone Paz III, MD at [place] [facility] [place] Left: Head SYNTHES MAXILLOFACIAL 02/05/2021 421.527 / / Screw Ti Lo Pro Sd 4mm 400.834 - [id number] Implanted:Qty: 2 on 02/03/2021 by Tone Paz III, MD at [place] [facility] [place] Left: Head SYNTHES MAXILLOFACIAL 02/05/2021 400.834 / / documented as of this encounter Visit Diagnoses Diagnosis Elevated cholesterol with elevated triglycerides Mixed hyperlipidemia documented in this encounter Advance Directives Documents on File Type Date Recorded Patient Oil Paint Shader Expl anation Power of Aluminum Polisher 11/29/2018 Miryam Contreras POWER OF MEMBERSHIP COUNSELOR * Full Code (Latest Code Status on [...] the patient have Health Care Power of Aluminum Polisher? Yes, in chart and reviewed as current [...] the patient have Health Care Power of Aluminum Polisher? Yes, not currently available * Full Code [...] the patient have Health Care Power of Aluminum Polisher? Yes, in chart and reviewed as current Healthcare Agents on File Name Relationship Healthcare Agent Relationship Communication Jovanni Contreras Adult Child First Alternat e Health Care Agent Miryam Contreras Spouse Health Care Agent [email or web address] Care Teams Tip Length Checker Relationship Specialty Start Date End Date Cristhian Johnson MD [address] [place] [address] PCP - General Internal Medicine 08/18/20 documented as of this encounter
--- OUTSIDE RECORDS SUMMARY | 2024-10-05 09:32 | External Medical Summary ---
Author Name Unknown Address Unknown Organization K01:[facility] - [address] [place] [address] Laboratory Report Ordering Provider Test Date Status DO ITZELZAHEERTEIN 09/16/2024 12:20:30 Final Observation Date Value Abnormality Reference (Units ) Status Triglyceride 09/16/2024 12:20:30 146 <=174 ( mg/dL) Final Triglyceride Reference Range s (mg/dL):
<150 Acceptable
150-174 Borderline high
175-499 High
>=500 Very high Cholesterol 09/16/2024 12:20:30 175 <200 (mg /dL) Final Total Cholesterol Reference Ranges (mg/dL):
<200 Desirable
200-239 Borderline high
>=240 High HDL 09/16/2024 12:20:30 42 >39 (mg/dL ) Final HDL Cholesterol Reference Ra nges (mg/dL):
>=60 High (Desirable)
<50 Low (Undesirable) For Females
<40 Low (Undesirable) For Males NON-HDL CHOLESTEROL 09/16/2024 12:20:30 133 <=159 (mg/dL) Final Non-HDL Cholesterol Referenc e Range (mg/dL):
<100 Target level for high risk ASCVD patient
<130 Optimal for general population
130-159 Near optimal for general population
160-189 Borderline High
190-219 High
>=220 Very High LDL, (calculated) 09/16/2024 12:20:30 104 <= 129 (mg/dL) Final LDL Cholesterol Reference Ra nges (mg/dL):
<70 Target level for high risk ASCVD patient
<100 Optimal for general population
100-129 Near optimal for general population
130-159 Borderline high
160-189 High
>=190 Very high Performing Location [facility] - [address] [facility] [address]
--- OUTSIDE RECORDS SUMMARY | 2024-10-05 09:32 | External Medical Summary | Summary of Care ---
Author Name Unknown Organization [facility] Address [address] [place] [address] Phone [phone] Care Team Providers Care Office Executive Name Role Phone Cristhian Johnson MD Primary Care Provider + Reason for Visit * Reason Onset Date Comments Precert In Process 04/25/2024 19 MARCY HIG HMARK Testosterone 20.25 MG/ACT(1.62%) gel Encounter Details Date Type Department Care Team (Late st Contact Info) Description 04/25/2024 Telephone [facility], [place] [address] [place] [address] Elsa Emmanuel MD [address] [place] [address] Precert In Process (19 MARCY HIGHMARK Akila... 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 History of GI bleed 08/18/2020 [...] mRNA, LNP-s, No Pre serve, 2-Dose Series ([place]) 11/19/2020 Covid-19, Mrna, Lnp-s, Pf, B ivalent, 30 Mcg, IM, 12 yrs and above ([place]) 08/24/2022 DTaP Dipth/Tet/Acell Pertussis (Infanrix), Peds 01/26/2021,09/28/2020,07/28/2020 [...] Code Group Number Group Name JOSE Chaney [facility]) MEDICARE ADVANTAGE [employer] PPO [id number] Primary Visit Coverage Subscriber ID Name N Address [id number] JUSTIN CONTRERAS [id number] [place] [phone] [place] [phone] documented in this encounter Plan of Treatment Upcoming Encounters Date Type Department Care Team (Late st Contact Info) Description 06/06/2024 3:00 PM EDT Office Visit Dermatology[address] [address] Damaris Fleming PA-C [address] [place] [address] DANITZA Olivares [id number] 09/25/2024 3:40 PM EST Office Visit General Internal Medicine James Goetz [place] [address] [facility] [place] [address] Cristhian Johnson MD [address] [facility] [place] [address] 03/27/2025 2:40 PM EDT Telemedicine Endocrinology Darrell Paredes [place] [address] [place] [address] Elsa Emmanuel MD [address] [place] [address] Scheduled Procedures Name Priority Associated [...] this encounter Medical Devices Implanted Type Area Chief Operating Engineer Device Identifier Shelf Expiration Date Model / Serial / Lot Cover Bur Hol Ti Lo 17 [id number] - [id number] Implanted:Qty: 1 on 02/03/2021 by Tone Paz III, MD at [place] [facility] [place] Left: Head SYNTHES MAXILLOFACIAL 02/05/2021 [id number] / / Screw Ti Lo Pro Sd 4mm 400.834 - [id number] Implanted:Qty: 2 on 02/03/2021 by Tone Paz III, MD at OR [facility] [place] Left: Head SYNTHES MAXILLOFACIAL 02/05/2021 [id number] / / documented as of this encounter Advance Directives Documents on File Type Date Recorded Patient Hoop Punch Operator Helper Expl anation Power of Oil Recovery Operator 11/29/2018 Miryam Contreras POWER OF ASSEMBLER [employer]ODUCTS * Full Code (Latest Code Status on [...] the patient have Health Care Power of Oil Recovery Operator? Yes, in chart and reviewed as [...] the patient have Health Care Power of Oil Recovery Operator? Yes, not currently available * Full [...] the patient have Health Care Power of Oil Recovery Operator? Yes, in chart and reviewed as current Healthcare Agents on File Name Relationship Healthcare Agent Relationship Communication Jovanni Contreras Adult Child First Alternat e Health Care Agent Miryam Contreras Spouse Health Care Agent [email or web address] Care Teams Office Executive Relationship Specialty Start Date End Date Cristhian Johnson MD [address] [place] [address] PCP - General Internal Medicine 08/18/20 documented as of this encounter
--- NOTE | 2024-10-05 09:41 | Emergency Department Note ---
Impression & Plan Bilateral pneumonia, Severe sepsis ED Provider Note Name: JUSTIN WALKER Age: 64 Sex: Male Arrives Via: Walk-In Informant: Patient, ED Provider: Roger Kumar MD Chief Complaint: Illness Impression: As per impressions above Medical Decision Makin-year-old gentleman with remote history of lymphoma arrives for evaluation of worsening shortness of breath, fevers, chills and generalized illness. Laboratory workup started including blood cultures and lactic acid as patient clearly appears septic on arrival. He has diffuse poor lung sounds tachycardia and fever at home. Chest x-ray does confirm bilateral pneumonia. Lactic acid returns elevated along with a significantly low white blood cell count. Sepsis resuscitation. Patient was resuscitated with 2.5 L normal saline bolus for management of severe sepsis. Patient was given 30/kg IV fluids and repeat evaluation improving along with improved lactic acid. He was empirically given IV Zosyn. Of note I did give the patient a dose of steroids on arrival as he had some wheezing earlier. Flu and COVID are negative. Hospitalist consulted for further management. Sepsis resuscitation. Patient was given 30 mL/kg IV fluids along with empiric IV antibiotics (Zosyn) Sepsis reevaluation. At 11:36 AM on 10/05/2024 patient reevaluated. Patient had a sepsis reevaluation completed at this time. Completed by me. Patient awake alert oriented breathing well no distress. Blood pressure is 128/68 with heart rate of 80. Triage/Nursing Notes reviewed by Me Differential:Viral syndrome, pneumonia, influenza, meningitis, urinary tract infection, sepsis, bacteremia, as well as other pathologies. Vital Signs: reviewed and remarkable for mild hypoxia, tachycardia Interventions: Normal saline bolus 2.5 L IV, Zosyn IV, Decadron IV, Tylenol IV Labs:ED labs Reviewed by me and remarkable for elevated lactic acid, elevated white blood cell count Imaging:X ray results are stated below per my interpretation: Chest: 1 view: Bilateral lower lobe infiltrates EKG:As per my interpretation. Indication shortness of breath. Sinus at 86 bpm with a first-degree AV block. QTc of 440. There is no ectopy nor ischemia. No previous for comparison. Cardiac/Tele Monitoring: Cardiac Monitoring: An Order was placed for continuous cardiac monitoring. The monitor shows a rate of 80 with a normal sinus rhythm. Consults:Discussed with Dr Isela Matthews hospitalist who will evaluate and bring in for further management. Plan: Disposition:Hospitalization. Condition: Good History of Present Illness: 64-year-old gentleman arrives for evaluation of shortness of breath. Patient with viral upper respiratory illness about a week and a half ago. Initially improving over the last several days though started developing fevers, chills, increasing cough, congestion. Also developed laryngitis. Due to worsening illness arrives to the ER for further evaluation after having been seen by urgent care and diagnosed with possible pneumonia hypoxia with an O2 sat of 90% and given a nebulizer prior to arrival. Patient denies any history of pneumonia. Does have a history of lymphoma treated several years ago at [facility]. He is on improved chronic suppressant therapy though no other chemo medications. Multiple sick contacts including granddaughter who had croup recently. Past Medical History: Lymphoma amongst others Home Medications:See Below Allergies: No known drug allergy Vitals:Blood Pressure: 125/65, Pulse 97, RR 20, T 36.6C, O2 92% on RA Physical Exam: GENERAL: Patient is unwell/ill appearing and in mild distress. RESPIRATORY: Dyspneic tachypneic with junky cough. Crackles and rhonchi throughout bilateral lower lungs. Some slight wheeze throughout noted. CARDIOVASCULAR: Tachycardic.No murmur appreciated. GASTROINTESTINAL: Abdomen soft, non-tender, no peritonitis. EXTREMITIES: Normal motion all extremities, no cyanosis, no edema. NEUROLOGIC: Alert and oriented. No focal neurologic deficits appreciated SKIN: No rash, no jaundice, no diaphoresis. PSYCH: Appropriate GCS: 15 ED Course: Times/Reassessments: Significant improvement with IV fluids and some IV steroids. Breathing much more comfortably and heart rate has come down nicely. Agreeable to hospitalization. Critical Care: I have personally spent 40 minutes of critical care time in the direct management of this patient. Severe sepsis secondary to bilateral pneumonia requiring resuscitation. This was a life/limb threatening event. This 40 minutes is in excess of all separately billable procedures. Roger Kumar MD Past Med/Surg History Problem List (Updated 10/05/24 @ 16:13 by Roger Kumar MD) Severe sepsis (Acute) Hypogammaglobulinemia RSV (respiratory syncytial virus pneumonia) Bilateral pneumonia (Acute) Rigors (Acute) Neutropenic fever (Acute) Pancytopenia due to chemotherapy (Acute) GERD (gastroesophageal reflux disease) BPH (benign prostatic hyperplasia) Fatigue Neutropenic fever Lymphoma (Chronic) DLBC Family History Other No pertinent family history in first degree relatives Social History Smoking Status: Never smoker Second Hand Exposure: No; Do You Dip or Chew Tobacco: No; Hx Alcohol Use: Yes Alcohol type: beer and wine Hx Substance Use: No Preferred Language: Japanese Communication Ability: Effective Accounts Payable Clerk Required: No Beliefs That Will Affect Care: None marital status: Current Living Situation: Spouse Current Living Situation Comment: and daughter Other Information That Helps Us Care for You: No Feels Safe at Home: Yes Safety Concerns: Feels Safe At This Time Assistive Devices: Glasses Allergies Allergies Allergy/AdvReac Type Severity Reaction Status Date / Time cat dander Allergy Intermediate SNEEZING Verified 10/05/24 10:42 CONGESTION dog dander Allergy Intermediate SNEEZING, Verified 10/05/24 10:42 CONGESTION ADHESIVE Allergy Intermediate SKIN Uncoded 10/05/24 10:42 IRRITATION POLLEN Allergy Intermediate ITCHY Uncoded 10/05/24 10:42 EYES, SNEEZING CONGESTION Home Meds Home Medications Medication Instructions Recorded Confirmed fluticasone furoate 100 1 inh inhalation HS PRN 01/31/21 10/05/24 mcg-vilanterol 25 mcg/dose SOB/WHEEZING/COUGH inhalation powder (Breo Ellipta) acetaminophen 325 mg tablet 325 mg PO Q6H PRN Pain 03/22/21 10/05/24 (Tylenol) acyclovir 800 mg tablet 800 mg PO BID 03/22/21 10/05/24 albuterol sulfate 90 mcg/actuation 2 puff inhalation Q4H PRN 03/22/21 10/05/24 aerosol inhaler Shortness Of Breath Or Wheezing ondansetron HCl 8 mg tablet 8 mg PO Q8H PRN Nausea 03/22/21 10/05/24 cetirizine 10 mg tablet (Zyrtec) 10 mg PO DAILY 04/27/21 10/05/24 fluticasone propionate 50 2 spray intranasal QAM 10/05/24 10/05/24 mcg/actuation nasal spray,suspension testosterone 3 pump topical DAILY 10/05/24 10/05/24 Results & Data (ED) Vital Signs Vital Signs - 24 hr 10/05/24 09:29 10/05/24 09:59 10/05/24 10:04 Temperature 36.6 C Temperature Source Temporal Artery Scan Pulse Rate 97 H 87 Pulse Rate [Apical] Pulse Rhythm Regular Pulse Rhythm [Apical] Pulse Strength [Apical] Respiratory Rate 20 20 Respiratory Effort / Characteristics Non-Labored Spontaneous SOB on Exertion Respiratory Depth Normal Normal Respiratory Pattern Regular Regular Blood Pressure 125/65 Blood Pressure [Left Arm] Blood Pressure Mean 85 Blood Pressure Mean [Left Arm] Pulse Oximetry 92 93 Oxygen Delivery Method Room Air Room Air Room Air Sepsis Recent Fever Within 48 Hours Yes Sepsis New/Unexplained Change in Mental Status N/A Sepsis Action Taken by Nursing No Action Required 10/05/24 10:06 10/05/24 10:14 10/05/24 10:40 Temperature Temperature Source Pulse Rate Pulse Rate [Apical] 86 84 86 Pulse Rhythm Pulse Rhythm [Apical] Regular Pulse Strength [Apical] Normal Normal Normal Respiratory Rate 19 22 21 Respiratory Effort / Characteristics SOB on Exertion Non-Labored Spontaneous Non-Labored Spontaneous Respiratory Depth Normal Normal Normal Respiratory Pattern Regular Regular Regular Blood Pressure Blood Pressure [Left Arm] 132/75 113/89 131/71 Blood Pressure Mean Blood Pressure Mean [Left Arm] 94 97 91 Pulse Oximetry 92 92 93 Oxygen Delivery Method Room Air Room Air Room Air Sepsis Recent Fever Within 48 Hours Sepsis New/Unexplained Change in Mental Status Sepsis Action Taken by Nursing 10/05/24 10:44 10/05/24 11:13 Temperature Temperature Source Pulse Rate 81 Pulse Rate [Apical] 79 Pulse Rhythm Pulse Rhythm [Apical] Pulse Strength [Apical] Normal Respiratory Rate 19 Respiratory Effort / Characteristics Non-Labored Spontaneous Respiratory Depth Normal Respiratory Pattern Regular Blood Pressure Blood Pressure [Left Arm] 99/80 L Blood Pressure Mean Blood Pressure Mean [Left Arm] 86 Pulse Oximetry 94 Oxygen Delivery Method Room Air Sepsis Recent Fever Within 48 Hours Sepsis New/Unexplained Change in Mental Status Sepsis Action Taken by Nursing Laboratory Data 10/05/24 09:39 10/05/24 09:39 Lab Results 10/05/24 10/05/24 Range/Units 09:39 10:38 WBC 22.45 H (4.8-10.8) K/ul RBC 4.51 L (4.70-6.10) M/uL Hgb 13.3 L (14.0-18.0) g/dl Hct 38.0 L (42.0-52.0) % MCV 84.3 (80.0-100.0) fL MCH 29.5 (25.0-34.0) pg MCHC 35.0 (32.0-36.0) g/dL RDW Std Deviation 43.7 (36.4-46.3) fL RDW Coeff of Svitlana 14.1 (11.5-14.5) % Plt Count 232 (130-400) K/uL MPV 9.6 (9.4-12.4) fL Immature Gran % (Auto) 2.0 % Neut % (Auto) 91.8 % Lymph % (Auto) 2.4 % [place] % (Auto) 3.6 % Eos % (Auto) 0.0 % Baso % (Auto) 0.2 % Neut # (Auto) 20.58 H (1.40-6.50) K/uL Lymph # (Auto) 0.55 L (1.20-3.40) K/uL [place] # (Auto) 0.81 H (0.11-0.59) K/uL Eos # (Auto) 0.01 (0.00-0.50) K/uL Baso # (Auto) 0.04 (0.00-0.20) K/uL Immature Gran # (Auto) 0.46 H (0.01-0.20) K/uL Sodium 135 L (136-145) mmol/L Potassium 3.6 (3.5-5.1) mmol/L Chloride 102 (98-107) mmol/L Carbon Dioxide 23 (21-32) mmol/L Anion Gap 10 (3-11) BUN 22 (6-23) mg/dl Creatinine 1.04 (0.6-1.4) mg/dl Est Cr Clr Drug Dosing 83.3 ml/min eGFR 79.68 BUN/Creatinine Ratio 21.2 H (10-20) Glucose 164 H (70-99(Fasting)) mg/dl Lactate 2.1 H* (0.4-2.0) mmol/L Calcium 9.8 (8.6-10.3) mg/dl Magnesium 1.7 (1.7-2.4) mg/dl Total Bilirubin 0.8 (0.2-1.0) mg/dl Direct Bilirubin 0.1 (0-0.2) mg/dl AST 32 (13-39) U/L ALT 42 (7-52) U/L Alkaline Phosphatase 134 H (34-104) U/L Troponin I High Sens 16.2 (0-20) pg/ml Total Protein 7.1 (6.0-8.3) gm/dl Albumin 3.7 (3.4-5.0) gm/dl Procalcitonin 0.26 (0-0.5) ng/ml Urine Color Dark Yellow Urine Appearance Clear (Clear) Urine pH 5.5 (4.5-7.5) Ur Specific [place] 1.034 H (1.000-1.030) Urine Protein 2+ H (Negative) Urine Glucose (UA) Negative (Negative) Urine Ketones Trace H (Negative) Urine Blood Negative (Negative) Urine Nitrite Negative (Negative) Urine Bilirubin Negative (Negative) Urine Urobilinogen Negative (Negative) Ur Leukocyte Esterase Negative (Negative) Urine WBC (Auto) 0-5 (0-5) /hpf Urine RBC (Auto) 0-2 (0-2) /hpf U Hyaline Cast (Auto) 0-2 (0-2) /lpf U Epithel Cells (Auto) 0-2 (0-2) /hpf Urine Bacteria (Auto) None Seen (None Seen) Nasal Screen MRSA (PCR) Negative (Negative) Administered Medications Guaifenesin (Guaifenesin 600 Mg Tabcr) 1,200 mg PO Q12 [facility] Stop: 11/04/24 12:44 Last Admin: 10/05/24 13:21 Dose: 1,200 mg Documented By: DM Sodium Chloride (Nss) 1,000 mls @ 75 mls/hr IV .[id number] [facility] Stop: 10/06/24 12:44 Last Admin: 10/05/24 13:23 Dose: 75 mls/hr Documented By: DM Levalbuterol HCl (Levalbuterol 1.25 Mg/3 Ml Neb) 1.25 mg NEB Q6R [facility] Stop: 11/04/24 12:59 Last Admin: 10/05/24 13:19 Dose: 1.25 mg Documented By: JBL Sodium Chloride (Sodium Chlor 7% 4 Ml Neb) 4 ml NEB BIDR [facility] Stop: 11/04/24 12:44 Last Admin: 12/28/24 13:19 Dose: 4 ml Documented By: KELLY Discontinued Medications Azithromycin (Azithromycin 250 Mg Tab) 500 mg PO NOW ONE Stop: 10/05/24 12:46 Last Admin: 10/05/24 13:20 Dose: 500 mg Documented By: CESAR Dexamethasone Sodium Phosphate (DexamethasonePf 10 Mg/Ml Vial) 10 mg IV NOW ONE Stop: 10/05/24 09:40 Last Admin: 10/05/24 10:01 Dose: 10 mg Documented By: EUNICE Hydrocodone Bit/Homatropine Methylb (Hydrocodone/Homatropine Syrup 5mg/1.5mg 5ml Udp) 5 ml PO NOW STA Stop: 10/05/24 09:42 Last Admin: 10/05/24 10:01 Dose: 5 ml Documented By: EUNICE Sodium Chloride (Nss) 1,000 mls @ 999 mls/hr IV .Q1H1M [facility] Stop: 10/05/24 10:45 Last Infusion: 10/05/24 11:13 Dose: Infused Documented By: Admin: 10/05/24 10:01 Dose: 999 mls/hr Documented By: EUNICE Acetaminophen (Ofirmev) 1,000 mg in 100 mls @ 400 mls/hr IV NOW STA Stop: 10/05/24 09:53 Last Infusion: 10/05/24 10:21 Dose: Infused Documented By: Admin: 10/05/24 10:03 Dose: 400 mls/hr Documented By: EUNICE Sodium Chloride (Nss) 500 mls @ 999 mls/hr IV .Q31M ONE Stop: 10/05/24 10:52 Last Infusion: 10/05/24 12:30 Dose: Infused Documented By: Admin: 10/05/24 11:18 Dose: 999 mls/hr Documented By: EUNICE Piperacillin Sod/Tazobactam Sod (Zosyn) 4.5 gm in 100 mls @ 200 mls/hr IV NOW ONE; Protocol Stop: 10/05/24 10:51 Last Infusion: 10/05/24 11:13 Dose: Infused Documented By: Admin: 10/05/24 10:34 Dose: 200 mls/hr Documented By: EUNICE Imaging Data Radiologist's Impression: Chest X-Ray 10/05/24 09:39 XR chest 1V portable CLINICAL HISTORY: Sepsis TECHNIQUE: Single frontal radiograph of the chest was obtained. Comparison: Comparison is made to chest radiograph 04/27/2021 FINDINGS: No lines and tubes are seen. The cardiomediastinal silhouette is normal. Bilateral lower lung predominant airspace opacities are seen. No evidence of pleural effusion or pneumothorax. IMPRESSION: Bilateral lower lung predominant airspace opacities which may represent atelectasis, pneumonia, and/or aspiration. ACT 112: Negative or not required by law. Electronically signed by: Mich Bonds M.D. 10/05/2024 10:30 AM Discharge Plan Visit Data Chief Complaint: Respiratory Problems Stated Complaint: URGENT CARE REFERRED, LOW O2, POSSIBLE PNEUMONIA ED Provider: Roger Kumar Discharge Problem: Bilateral pneumonia, Severe sepsis Patient Disposition: Admitted As Inpatient Discharge Instructions Interventions: ED Discharge Assessment Last Done: 10/05/24 14:22 Discharge Problem: Bilateral pneumonia Qualifiers: Pneumonia type: due to unspecified organism Lung location: lower lobe of lung Q ualified Code(s): J18.9 - Pneumonia, unspecified organism
[2024-10-05] MEDS: dexAMETHasone**PF** 10 MG/ML VIAL IV ONE (10:01)
[2024-10-05] MEDS: SODIUM CHLORIDE 0.9% 1,000 ML IV SCH ×2 (10:01→13:23)
[2024-10-05] MEDS: HYDROcodone/HOMATROPINE SYRUP 5MG/1.5MG 5ML UDP PO STA (10:01)
[2024-10-05] MEDS: ACETAMINOPHEN 1,000 MG/100 ML VIAL IV STA (10:03)
[2024-10-05 10:23] LABS: Hemoglobin 13.3 g/dl (14.0-18.0); Mean Corpuscular Hemoglobin 29.5 pg (25.0-34.0); Mean Corpuscular Volume 84.3 fL (80.0-100.0); Mean Platelet Volume 9.6 fL (9.4-12.4); Platelet Count 232 K/uL (130-400); RDW Coefficient of Variation 14.1 % (11.5-14.5); RDW Standard Deviation 43.7 fL (36.4-46.3); Red Blood Count 4.51 M/uL (4.70-6.10); White Blood Count 22.45 K/ul (4.8-10.8)
[2024-10-05 10:32] LABS: Albumin Level 3.7 gm/dl (3.4-5.0); BUN Creatinine Ratio 21.2 (10-20); Bilirubin Direct 0.1 mg/dl (0-0.2); Bilirubin,Total 0.8 mg/dl (0.2-1.0); Calcium 9.8 mg/dl (8.6-10.3); Creatinine Clr Calc Pharmacy 83.3 ml/min; Magnesium 1.7 mg/dl (1.7-2.4); Potassium 3.6 mmol/L (3.5-5.1); Total Protein 7.1 gm/dl (6.0-8.3)
--- NOTE | 2024-10-05 10:32 | XRay Report ---
XR chest 1V portable CLINICAL HISTORY: Sepsis TECHNIQUE: Single frontal radiograph of the chest was obtained. Comparison: Comparison is made to chest radiograph 04/27/2021 FINDINGS: No lines and tubes are seen. The cardiomediastinal silhouette is normal. Bilateral lower lung predomi nant airspace opacities are seen. No evidence of pleural effusion or pneumothorax. IMPRESSION: Bilateral lower lung predominant airspace opacities which may represent atelectasis, pneumonia, and/o r aspiration. ACT 112: Negative or not required by law. Electronically signed by: Mich Bonds M.D. 10/05/2024 10:30 AM
[2024-10-05] MEDS: PIPERACILLIN/TAZOBACTAM 4.5 GM/100 ML BAG IV ONE (10:34)
[2024-10-05 10:38] LABS: Troponin I High Sensitivity 16.2 pg/ml (0-20)
[2024-10-05 10:45] LABS: Basophils # (auto) 0.04 K/uL (0.00-0.20); Basophils % (auto) 0.2 %; Eosinophils # (auto) 0.01 K/uL (0.00-0.50); Immature Granulocytes # (auto) 0.46 K/uL (0.01-0.20); Lymphocytes # (auto) 0.55 K/uL (1.20-3.40); Lymphocytes % (auto) 2.4 %; Monocytes # (auto) 0.81 K/uL (0.11-0.59); Monocytes % (auto) 3.6 %; Neutrophils # (auto) 20.58 K/uL (1.40-6.50); Neutrophils % (auto) 91.8 %
[2024-10-05 10:59] LABS: Adenovirus PCR Not Detected (NotDetected); Bordetella parapertussis PCR Not Detected (NotDetected); Bordetella pertussis PCR Not Detected (NotDetected); Chlamydia pneumoniae PCR Not Detected (NotDetected); Coronavirus 229E PCR Not Detected (NotDetected); Coronavirus CoV-2 (COVID19)PCR Not Detected (NotDetected); Coronavirus HKU1 PCR Not Detected (NotDetected); Coronavirus NL63 PCR Not Detected (NotDetected); Coronavirus OC43PCR Not Detected (NotDetected); Human Metapneumovirus PCR Not Detected (NotDetected); Influenza A PCR Not Detected (NotDetected); Influenza B PCR Not Detected (NotDetected); Mycoplasma pneumoniae PCR Not Detected (NotDetected); Parainfluenza Virus 1 PCR Not Detected (NotDetected); Parainfluenza Virus 2 PCR Not Detected (NotDetected); Parainfluenza Virus 3 PCR Not Detected (NotDetected); Parainfluenza Virus 4 PCR Not Detected (NotDetected); Respiratory Syncytial VirusPCR DETECTED (NotDetected); Rhinovirus/Enterovirus PCR Not Detected (NotDetected)
[2024-10-05] MEDS: SODIUM CHLORIDE 0.9% 500 ML IV ONE (11:18)
[2024-10-05 11:21] LABS: Appearance Urine Clear (Clear); Bacteria Urine Automated None Seen (None Seen); Bilirubin Urine Negative (Negative); Blood Urine Negative (Negative); Cast Urine Automated 0-2 /lpf (0-2); Color Urine Dark Yellow; Epithelial Cell Urine Auto 0-2 /hpf (0-2); Glucose Urine UA Negative (Negative); Ketones Urine Trace (Negative); Leukocyte Esterase Urine Negative (Negative); Nitrite Urine Negative (Negative); Protein Urine 2+ (Negative); RBC Urine Automated 0-2 /hpf (0-2); Specific Gravity Urine 1.034 (1.000-1.030); Urobilinogen Urine Negative (Negative); WBC Urine Automated 0-5 /hpf (0-5); pH Urine 5.5 (4.5-7.5)
--- NOTE | 2024-10-05 12:23 | History & Physical Report ---
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 currently presenting with 10-day history of cough and shortness of breath. Bilateral pneumonia RSV infection Possible sepsis Immunodeficiency/hypogammaglobulinemia, on IV Ig infusion secondary to CAR T- cell therapy History of B-cell lymphoma, status post CAR T-cell therapy, chemotherapy, stem cell therapy, in remission Currently not receiving any treatment for B-cell lymphoma in remission but on IVIG infusions every 2 months at [facility] Next IV Ig infusion in 2 weeks Also on prophylactic acyclovir PO On room air Mild tachycardia, afebrile WBC 22,000 Lactic acid 2.1 BioFire positive for RSV MRSA swab: Pending Sputum culture: Pending Blood cultures: Pending Urine Legionella: Pending IV Zosyn P.o. azithromycin Possible IV Vanco for MRSA, pending MRSA swab Possible antifungal coverage, pending pulm and ID Consult Levalbuterol, hypertonic saline Incentive spirometry, flutter valve Mucinex IV NSS Pulmonology consult Infectious is consulted Testicular hypogonadism, status post orchiectomy Continue topical testosterone Obstructive sleep apnea On CPAP Mild persistent asthma On as needed albuterol Not in exacerbation BPH Not on any therapy DVT prophylaxis Lovenox subcu daily CODE STATUS Full code per patient Disposition Lives at home with Addi Weiss MD History of Present Illness Chief Complaint: Cough and shortness of breath x 10 days Primary Care Provider: Cristhian Johnson MD 64-year-old male with history of B-cell lymphoma with REGISTRATION MANAGER involvement, status post CAR-T cell therapy, chemo and stem cell transplant currently in remission, 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 currently presenting with 10-day history of cough and shortness of breath. History obtained from patient and his Miryam at the bedside. Early in September, patient had an episode of sinus congestion/bronchitis and was given a course of doxycycline. Symptoms of frontal headache, nasal drainage, cough and sputum production improved but not completely resolved as per patient. About 10 days ago, patient again started to have worsening of headache, nasal congestion, nasal drainage, cough with thick sputum production. He was exposed to a grandchild with croup and managed his symptoms as a possible viral upper respiratory infection with [id number] medications including Tylenol, Mucinex, NyQuil. Symptoms continue to progress with progressive wea kness, poor appetite, subjective feeling of being very cold. Today presented to the urgent care which advised ER consult. At the ER, patient received with blood pressure of 120/65, heart rate of 97, respiratory 20, temperature 36.6, 92% on room air. WBC 22,000 Chest x-ray showing bilateral pneumonia BioFire ordered, MRSA swab ordered: Pending Patient given Decadron, IV Zosyn, IV NSS and Hycodan. Hospitalist consulted for admission. On exam, patient seen resting in bed, on room air, saturating 97%.. He is comfortable, not in distress, oriented x 3, answering questions appropriately, very pleasant. He denies active shortness of breath, chest pain, headache, sore throat, nausea or vomiting, abdominal pain, problems with urination, diarrhea. Allergies Allergy/AdvReac Type Severity Reaction Status Date / Time cat dander Allergy Intermediate SNEEZING Verified 10/05/24 10:42 CONGESTION dog dander Allergy Intermediate SNEEZING, Verified 10/05/24 10:42 CONGESTION ADHESIVE Allergy Intermediate SKIN Uncoded 10/05/24 10:42 IRRITATION POLLEN Allergy Intermediate ITCHY Uncoded 10/05/24 10:42 EYES, SNEEZING CONGESTION Home Medications Medication Instructions Recorded Confirmed Type fluticasone furoate 100 1 inh inhalation HS PRN 01/31/21 10/05/24 History mcg-vilanterol 25 mcg/dose SOB/WHEEZING/COUGH inhalation powder (Breo Ellipta) acetaminophen 325 mg tablet 325 mg PO Q6H PRN Pain 03/22/21 10/05/24 History (Tylenol) acyclovir 800 mg tablet 800 mg PO BID 03/22/21 10/05/24 History albuterol sulfate 90 mcg/actuation 2 puff inhalation Q4H PRN 03/22/21 10/05/24 History aerosol inhaler Shortness Of Breath Or Wheezing ondansetron HCl 8 mg tablet 8 mg PO Q8H PRN Nausea 03/22/21 10/05/24 History cetirizine 10 mg tablet (Zyrtec) 10 mg PO DAILY 04/27/21 10/05/24 History fluticasone propionate 50 2 spray intranasal QAM 10/05/24 10/05/24 History mcg/actuation nasal spray,suspension testosterone 3 pump topical DAILY 10/05/24 10/05/24 History Past Med/Surg History Problem List (Updated 10/05/24 @ 12:16 by Addi Weiss MD) Hypogammaglobulinemia RSV (respiratory syncytial virus pneumonia) Bilateral pneumonia Rigors (Acute) Neutropenic fever (Acute) Pancytopenia due to chemotherapy (Acute) GERD (gastroesophageal reflux disease) BPH (benign prostatic hyperplasia) Fatigue Neutropenic fever Lymphoma (Chronic) DLBC Family History Other No pertinent family history in first degree relatives Social History Smoking Status: Never smoker Second Hand Exposure: No; Do You Dip or Chew Tobacco: No; Hx Alcohol Use: Yes Alcohol type: other Hx Substance Use: No Preferred Language: Puerto Rican Communication Ability: Effective Collar Sewer Required: No Beliefs That Will Affect Care: None marital status: Current Living Situation: Spouse and Family Current Living Situation Comment: and daughter Feels Safe at Home: Yes Assistive Devices: None Review of Systems Review of Systems: all noted and negative except for above Physical Exam Physical Exam: General- oriented x 3, not in distress, speaks in sentences with no effort or accessory muscle use Appears weak, hoarse, soft voice Head- atraumatic Eyes- PERRL, EOMI, anicteric ENT- Mild oral thrush Neck- supple, no JVD, no adenopathy, no thyromegaly; carotids +2/2, no bruits appreciated Lungs- Positive scattered rhonchi bilaterally, no wheezing, good air entry bilaterally Heart- normal rate, regular rhythm; no murmur, no gallop, no rub appreciated Abdomen- normal bowel sounds, nondistended, soft, nontender, no masses or hepatosplenomegaly Extremities- no pretibial edema, no calf tenderness; peripheral pulses intact Neuro- alert, oriented x 3; CN 2-12 grossly intact; motor 5/5 bilaterally;sensation 100% on all extremities; no other gross focal neurologic deficits Skin- warm & dry Results & Data Results & Data Vital Signs (Past 12 Hours) Vital Signs Temp Pulse Pulse Resp BP BP Pulse Ox 10/05/24 11:54 36.6 C 73 19 131/77 98 10/05/24 11:13 79 19 99/80 L 94 10/05/24 10:44 81 10/05/24 10:40 86 21 131/71 93 10/05/24 10:14 84 22 113/89 92 10/05/24 10:06 86 19 132/75 92 10/05/24 10:04 10/05/24 09:59 87 20 93 10/05/24 09:29 36.6 C 97 H 20 125/65 92 O2 Del Method 10/05/24 11:54 Room Air 10/05/24 11:13 Room Air 10/05/24 10:44 10/05/24 10:40 Room Air 10/05/24 10:14 Room Air 10/05/24 10:06 Room Air 10/05/24 10:04 Room Air 10/05/24 09:59 Room Air 10/05/24 09:29 Room Air all noted and reviewed including below Code Status & VTE Plan VTE Prophylaxis Plan VTE Prophylaxis will be ordered: Yes
--- OUTSIDE RECORDS SUMMARY | 2024-10-05 12:34 | External Medical Summary | Summary of Care ---
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 Active [...] the morning. 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 Hx of melanoma in situ 10/21/2021 Overview (10/21/2021): melanoma in situ (R lateral mid back 10/30) 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 10/14/2021 PRINCIPAL SYSTEMS ARCHITECT 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 History of GI bleed 08/18/2020 [...] as of this encounter (statuses as of 10/05/2024) Resolved Problems Problem Noted Date Diagnosed Date [...] as of this encounter (statuses as of 10/05/2024) Immunizations Name Administration Dates Next Due COVID-19 [...] Past Smokeless Tobacco: Never Tobacco Cessation:Counseling Given: Yes Alcohol Use Standard Drinks/Week Comments Not Currently [...] Sign Reading Time Taken Comments Blood Pressure 118/66 10/05/2024 8:24 AM EST Pulse 102 10/05/2024 8:59 AM EST Temperature 38.5 C (101.3 F) 10/05/2024 8:24 AM EST Respiratory Rate 20 10/05/2024 8:24 AM EST Oxygen Saturation 88% 10/05/2024 9:1 8 AM EST after breathing treatment Inhaled Oxygen Concentration - - Weight 97.3 kg (214 lb 6.4 oz) 10/05/2024 8:24 AM EST Height 180.3 cm (5' 11") 10/05/2024 8:2 4 AM EST Body Mass Index 29.9 10/05/2024 8:24 AM EST documented in this encounter Functional Status * Are you deaf or do you have serious difficulty hearing? Answer Date of Assessment Author No 03/02/2021 3:36 PM Marj Prieto RN * Are you blind or do [...] documented in this encounter Progress Notes * Maegan Evans LPN - 10/05/2024 8:56 AM EST Neb per order. * Kelsi Hurt PA-C - 10/05/2024 8:20 AM EST Subjective: Nursing Notes: Maegan Evans LPN 10/05/24 0833 Signed Memo Contreras is a 64 year old male who presents to clinic today for... Main Symptoms:cough, hoarse, fatigue, sob granddaughter has croop How long: a week Tried: nyquil, day and night, mucinex, Pt accompanied by: Sx are cpigh, SOB, wheezing, no sick contacts at home. Sig med hx/risk factors: Asthma, BPH, PRINCIPAL SYSTEMS ARCHITECT Lymphoma and chemotherapy induced neuropathy Review of Systems Constitutional: Positive for activity change, appetite change, chills, fatigue (not able to sleep at night, extreme) and fever. HENT: Positive for congestion, postnasal drip and rhinorrhea. Negative for ear pain, sinus pressure, sinus pain, sore throat and voice change. Eyes: Negative for discharge and redness. Respiratory: Positive for cough, chest tightness, shortness of breath and wheezing. Cardiovascular: Negative for chest pain. Gastrointestinal: Negative for abdominal pain, diarrhea, nausea and vomiting. Musculoskeletal: Negative for arthralgias, neck pain and neck stiffness. Allergic/Immunologic: Negative for environmental allergies. Neurological: Negative for dizziness. Hematological: Negative for adenopathy. 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 Acyclovir 800 MG Oral Tablet (Zovirax) Take [...] nostril in the morning. 16 g 1 Spacer/Aero-Holding Chambers Device Use with inhaler. 1 Each 0 No current facility-administered medications for this visit. Past Medical History: Diagnosis Date Acute blood loss anemia 11/28/2018 Asthma, mild persistent 08/18/2020 BPH with obstruction/lower urinary tract symptoms 08/18/2020 Cellulitis of scrotum 07/28/2019 Diffuse large B cell lymphoma (HCC) MUÑOZ (dyspnea on exertion) 02/25/2020 GIB (gastrointestinal bleeding) 11/28/2018 Likely 2/2 abdominal mass concerning for cancer History of GI bleed 08/18/2020 History of non-Hodgkin's lymphoma 10/1999 testicular NHL, Treated at [facility]- orchiectomy, radiation, chemotherapy (? 6 or 8 cycles of CHOP) plus 6 cycles of IT MTx Immunodeficiency (HCC) 08/18/2022 Low testosterone 08/18/2020 Right renal mass 11/28/2018 Sleep apnea, obstructive Urinary retention 11/28/2018 On flomax Past Surgical History: Procedure Laterality Date BRONCHOSCOPY, DIAGNOSTIC N/A 11/08/2019 BRONCHOSCOPY DIAGNOSTIC WITH OR WITHOUT WASHING performed by José Manuel Grant MD at ENDOSCOPY [facility] COLONOSCOPY, DIAGNOSTIC (RECTUM) N/A 11/30/2018 COLONOSCOPY FLEXIBLE PROXIMAL DIAGNOSTIC performed by Royal Christie MD at ENDOSCOPY [facility] COLONOSCOPY, DIAGNOSTIC (RECTUM) 11/01/2022 benign adenomatous polyps, repeat 5 yrs / COLONOSCOPY FLEXIBLE PROXIMAL DIAGNOSTIC performed by Marco Antonio Preez MD at ENDOSCOPY [facility] EGD, FLEXIBLE, DIAGNOSTIC N/A 11/30/2018 ESOPHAGOGASTRODUODENOSCOPY (EGD), FLEXIBLE, TRANSORAL, DIAGNOSTIC performed by Royal Christie MD at ENDOSCOPY [facility] INFORMATION Right 07/29/2015 [facility] ORCHIECTOMY, PARTIAL 1999 STEREOTAXIC BIOPSY W/CAT SCAN Left 02/03/2021 STEREOTACTIC BRAIN BIOPSY WITH TOMOGRAPHY OR MAGNETIC GUIDANCE performed by Tone Paz III, MD at OR [facility] Review of patient's allergies indicates: Allergen Reactions Cat Dander Pollen Per transferring facility records Dog Dander Objective: BP 118/66 | Pulse 102 | Temp (!) 38.5 C (101.3 F) | Resp 20 | Ht 1.803 m (5' 11") | Wt 97.3 kg (214 lb 6.4 oz) | SpO2 88% Comment: after breathing treatment | BMI 29.90 kg/m | BSA 2.21 m Physical Exam Constitutional: Appearance: He is ill-appearing and toxic-appearing. Comments: Pt is dozing off at times in the exam room, HENT: Head: Normocephalic. Cardiovascular: Rate and Rhythm: Normal rate and regular rhythm. Heart sounds: Normal heart sounds. Pulmonary: Effort: Respiratory distress (mild) present. Breath sounds: Wheezing and rhonchi present. Neurological: General: No focal deficit present. 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 Return instruction reviewed with pt in detail. Reasons to report to the ED were also reviewed. Voiced understanding Advised to follow up if no improvement in 3-5days. Kelsi Hurt PA-C documented in this encounter Nursing Notes * Maegan Evans LPN - 10/05/2024 8:23 AM EST Memo Contreras is a 64 year old male who presents to clinic today for... Main Symptoms:cough, hoarse, fatigue, sob granddaughter has croop How long: a week Tried: nyquil, day and night, mucinex, Pt accompanied by: documented in this encounter Plan of Treatment Upcoming Encounters Date Type Department Care Team (Late st Contact Info) Description 10/22/2024 3:40 PM EST [facility] [address] [facility] [id number] Damaris Fleming PA-C [address] [place] [address] [place] [id number] 11/27/2024 10:30 AM EST Office Visit Otol[facility] [address] [facility] [place] [address] Jose D Holbrook DO [address] [facility] [place] [address] 03/27/2025 2:40 PM EDT Telemedicine Endocrinology [address] [place] [phone] Elsa Emmanuel MD [address] [id number] 07/08/2025 1:00 PM EDT Office Visit General Internal Medicine [facility] [address] [facility] [place] [address] Cristhian Johnson MD [address] [facility] [place], [place] [address] 08/04/2025 2:15 PM EDT Office Visit Dermatology [employer] [address] [facility] [place] [address] Cristhian Kumar MD [address] [facility] [place], [place] [address] Scheduled Procedures Name Priority Associated Diagnoses Date/Ti me COLONOSCOPY FLEXIBLE PROXIMAL DIAGNOSTIC Recall History of colon polyps Health Maintenance Due Date Last Done Comments Cologuard 2004 Fecal Occult Blood Test 2004 Sigmoidoscopy 2004 COVID-19 Vaccine ( season) 2024 08/24/2022, 12/10/2020, 11/19/2020 Depression Screening 08/24/2024 08/24/2023 Pneumococcal Vaccine: 50+ Years (4 of 4 - PCV20 or PCV21) 01/26/2026 01/26/2021, 07/28/2020, 03/19/2020, Additional history exists [...] this encounter Medical Devices Implanted Type Area Compliance Associate Device Identifier Shelf Expiration Date Model / Serial / Lot Cover Bur Hol Ti Lo 17 [id number] - [id number] Implanted:Qty: 1 on 02/03/2021 by Tone Paz III, MD at [facility] Left: Head SYNTHES MAXILLOFACIAL 02/05/2021 [id number] / / Screw Ti Lo Pro Sd 4mm 400.834 - [id number] Implanted:Qty: 2 on 02/03/2021 by Tone Paz III, MD at [facility] Left: Head SYNTHES MAXILLOFACIAL 02/05/2021 [id number] / / documented as of this encounter Visit Diagnoses Diagnosis SOB (shortness of breath)- Primary Shortness of breath Acute cough Wheezing 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, unspecified site, extranodal and solid organ sites Mild persistent asthma without complication Unspecified asthma documented in this encounter Administered Medications Inactive Administered Medications - up to 3 most recent administrations Medication Order MAR Action Action Date Dose Rate Site albuterol-ipratropium (Duoneb) inhalation solution 3 mL 3 mL, Nebulizer, ONCE, On 10/05/24 at 0915, For 1 dose, 3 mL = 0.5 mg ipratropium/ 2.5 mg albuterolIndications:Acute cough,Mild persistent asthma without complication,SOB (shortness of breath),Wheezing Given 10/05/2024 8:43 AM EST 3 mL documented in this encounter Advance Directives Documents on File Type Date Recorded Patient Merchandising Execution Manager Expl anation Power of Typesetters Printer 11/29/2018 Miryam Contreras POWER OF LABORER COOK HOUSE * Full Code (Latest Code Status on [...] the patient have Health Care Power of Typesetters Printer? Yes, in chart and reviewed as current [...] the patient have Health Care Power of Typesetters Printer? Yes, not currently available * Full Code [...] the patient have Health Care Power of Typesetters Printer? Yes, in chart and reviewed as current Healthcare Agents on File Name Relationship Healthcare Agent Relationship Communication Jovanni Contreras Adult Child First Alternat e Health Care Agent Miryam Contrersa Spouse Health Care Agent [email or web address]. [employer] Care Teams Junior Paralegal Relationship Specialty Start Date End Date Cristhian Johnson MD [address] [facility] [place] [address] PCP - General Internal Medicine 08/18/20 documented as of this encounter
[2024-10-05] MEDS ORDERED: ACETAMINOPHEN 325 MG TAB PO PRN (12:45)
--- NOTE | 2024-10-05 13:15 | Pulmonary Consultation ---
Date of Consultation October 05, 2024 Assessment & Plan (1) RSV (respiratory syncytial virus pneumonia): (2) Hypogammaglobulinemia: (3) Bilateral pneumonia: (4) GERD (gastroesophageal reflux disease): (5) BPH (benign prostatic hyperplasia): (6) Lymphoma: Plan CT chest 10/05/2024 personally reviewed: Tree-in-bud opacities appreciated in the right middle left lower lobe Dense consolidative process in the right lower lobe Questionable bronchiectasis bilateral lower lobes Minimal right hilar lymphadenopathy -- Multifocal pneumonia Questionable bronchiectasis of the bilateral lower lobes Procalcitonin 0.26 Nasal MRSA negative Respiratory BioFire negative for everything except for RSV -- Childhood history asthma Not on any inhalers at home --History of B-cell lymphoma s/p stem cell transplant 2018, relapsed s/p car-T cell therapy and chemo 2020 Taking acyclovir 800 mg twice daily for suppressive therapy as he gets herpes around the mouth when he is off of it --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 No plans for bronchoscopy right now unless there is worsening in the next couple of days Will need a repeat CT chest in 6-8 weeks Please note the above document was generated using voice recognition software. It may contain grammatical, syntax or spelling errors.Any formal questions or concerns about the content, text or information contained within the body of this dictation should be directly addressed to the provider for clarification. History of Present Illness Attending Physician: Addi Weiss MD History of Present Illness 64-year-old male presented to the hospital for shortness of breath and cough Past medical history: B-cell lymphoma s/p stem cell transplant 2018, relapsed s/p car-T cell therapy and chemo 2020 , immunodeficiency with IVIG, MAULIK, BPH, hypogonadism s/p orchiectomy Pulmonary consulted for the same At the time of examination patient's was in the room He was not in any respiratory distress. His saturation was 95% on room air. Heart rate in the low 80s. Respiratory rate in the mid to high teens Patient had recently visited their grandchildren in [place], the little 1 was sick and coughing. Patient has been having issues with cough and chest congestion since approximately 4-5 days progressively getting worse His voice is also gotten soft because of that. Does complain of runny nose. When he coughs a lot he does get some chest discomfort. Denies any dysuria, diarrhea No recent travel history to places like [place] or [place]. 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 No exposure to any chemicals or fumes Charted history of asthma No history of lung cancer in the family Allergies Allergy/AdvReac Type Severity Reaction Status Date / Time cat dander Allergy Intermediate SNEEZING Verified 10/05/24 10:42 CONGESTION dog dander Allergy Intermediate SNEEZING, Verified 10/05/24 10:42 CONGESTION ADHESIVE Allergy Intermediate SKIN Uncoded 10/05/24 10:42 IRRITATION POLLEN Allergy Intermediate ITCHY Uncoded 10/05/24 10:42 EYES, SNEEZING CONGESTION Home Medications Medication Instructions Recorded Confirmed Type fluticasone furoate 100 1 inh inhalation HS PRN 01/31/21 10/05/24 History mcg-vilanterol 25 mcg/dose SOB/WHEEZING/COUGH inhalation powder (Breo Ellipta) acetaminophen 325 mg tablet 325 mg PO Q6H PRN Pain 03/22/21 10/05/24 History (Tylenol) acyclovir 800 mg tablet 800 mg PO BID 03/22/21 10/05/24 History albuterol sulfate 90 mcg/actuation 2 puff inhalation Q4H PRN 03/22/21 10/05/24 History aerosol inhaler Shortness Of Breath Or Wheezing ondansetron HCl 8 mg tablet 8 mg PO Q8H PRN Nausea 03/22/21 10/05/24 History cetirizine 10 mg tablet (Zyrtec) 10 mg PO DAILY 04/27/21 10/05/24 History fluticasone propionate 50 2 spray intranasal QAM 10/05/24 10/05/24 History mcg/actuation nasal spray,suspension testosterone 3 pump topical DAILY 10/05/24 10/05/24 History Patient History Family History Other No pertinent family history in first degree relatives Social History Smoking Status: Never smoker Second Hand Exposure: No; Do You Dip or Chew Tobacco: No; Hx Alcohol Use: Yes Alcohol type: other Hx Substance Use: No Preferred Language: Bengali Communication Ability: Effective Bullet Maker Required: No Beliefs That Will Affect Care: None marital status: Current Living Situation: Spouse and Family Current Living Situation Comment: and daughter Feels Safe at Home: Yes Assistive Devices: None Review of Systems 2 Review of Systems: All systems reviewed & are unremarkable except as noted in HPI & below Physical Exam 2 Physical Exam: Constitutional: No acute distress HEENT: EOMI, PERRLA Respiratory system: Decreased air entry bilaterally, no wheezes, positive rhonchi, positive crackles bilaterally CVS: S1-S2 positive, no murmurs or gallops Abdomen: Soft, nontender, nondistended, positive bowel sounds x4 Extremities: +2 pulses bilaterally radialis/ dorsalis pedis, no cyanosis, minimal pitting edema bilateral lower extremity Neuro: Awake alert oriented x3 Psych: Normal mood and affect G/U: No Hansen Skin: no rashes, warm and dry Lymphatic: no cervical or axillary lymphadenopathy Results & Data Results & Data Vital Signs (Past 12 Hours) Vital Signs Temp Pulse Pulse Resp BP BP Pulse Ox 10/05/24 12:46 10/05/24 11:54 36.6 C 73 19 131/77 98 10/05/24 11:13 79 19 99/80 L 94 10/05/24 10:44 81 10/05/24 10:40 86 21 131/71 93 10/05/24 10:14 84 22 113/89 92 10/05/24 10:06 86 19 132/75 92 10/05/24 10:04 10/05/24 09:59 87 20 93 10/05/24 09:29 36.6 C 97 H 20 125/65 92 O2 Del Method 10/05/24 12:46 Room Air 10/05/24 11:54 Room Air 10/05/24 11:13 Room Air 10/05/24 10:44 10/05/24 10:40 Room Air 10/05/24 10:14 Room Air 10/05/24 10:06 Room Air 10/05/24 10:04 Room Air 10/05/24 09:59 Room Air 10/05/24 09:29 Room Air Laboratory Results 10/05/24 09:39 10/05/24 09:39 PG Care Time/CCT Total # of Minutes Spent Total Time Spent with Patient: Total time spent is greater than 50% in coordination of care (as documented) at patient's floor/unit and/or counseling patient: [place] [address] INT INP/OBS CARE 3/75MIN Patient Type New Diagnoses RSV (respiratory syncytial virus pneumonia) J12.1 Hypogammaglobulinemia D80.1 Bilateral pneumonia J18.9 GERD (gastroesophageal reflux disease) K21.9 BPH (benign prostatic hyperplasia) N40.0 Lymphoma C85.90
[2024-10-05] MEDS: SODIUM CHLOR 7% 4 ML NEB NEB SCH (13:19)
[2024-10-05] MEDS: LEVALBUTEROL 1.25 MG/3 ML NEB NEB SCH (13:19)
[2024-10-05] MEDS: AZITHROMYCIN 250 MG TAB PO ONE (13:20)
[2024-10-05] MEDS: guaiFENesin 600 MG TABCR PO SCH (13:21)
--- NOTE | 2024-10-05 15:39 | CT Scan Report ---
CT chest diagnostic wo con CLINICAL HISTORY: pneumonia, r/o effusion, empyema TECHNIQUE: Multidetector row helical CT of the chest was performed. Coronal and sagittal reformations were obtained. Automated dose lowering techniques and/or adjustment according to patient size were u tilized for this exam. CT DOSE: 735.3 mGy.cm Comparison: Comparison is made to CT chest 01/31/2021 and chest radiograph 09/27/2024 FINDINGS: Lungs and pleura: Right greater than left airspace opacities favoring the lower lungs. No pleural eff usions or empyema are seen. Heart and pericardium: Heart size is normal. No pericardial effusion. Vessels: Pulmonary trunk measures 33 mm in diameter. Mediastinum and yonas: Subcentimeter lymph nodes are seen. Chest wall and lower neck: Unremarkable. Abdomen: Unremarkable. Bones: Degenerative changes in the thoracic spine. IMPRESSION: Bilateral lower lung predominant airspace opacities compatible with pneumonia, without evidence of pl eural effusion or empyema. ACT 112: Negative or not required by law. Electronically signed by: Mich Bonds M.D. 10/05/2024 3:38 PM
[2024-10-05] MEDS: PIPERACILLIN/TAZOBACTAM 4.5 GM/100 ML BAG IV SCH (16:58)
[2024-10-05] MEDS: ACYCLOVIR 400 MG TAB PO SCH (21:32)
[2024-10-06 06:30] LABS: Basophils # (auto) 0.03 K/uL (0.00-0.20); Basophils % (auto) 0.2 %; Hematocrit (blood only) 36.1 % (42.0-52.0); Hemoglobin 12.3 g/dl (14.0-18.0); Immature Granulocytes # (auto) 0.64 K/uL (0.01-0.20); Immature Granulocytes % (auto) 4.2 %; Lymphocytes # (auto) 0.83 K/uL (1.20-3.40); Lymphocytes % (auto) 5.5 %; Mean Corpuscular Hemoglobin 29.9 pg (25.0-34.0); Mean Corpuscular Hgb Conc 34.1 g/dL (32.0-36.0); Mean Corpuscular Volume 87.8 fL (80.0-100.0); Mean Platelet Volume 9.6 fL (9.4-12.4); Monocytes # (auto) 0.33 K/uL (0.11-0.59); Monocytes % (auto) 2.2 %; Neutrophils # (auto) 13.37 K/uL (1.40-6.50); Neutrophils % (auto) 87.9 %; Platelet Count 228 K/uL (130-400); RDW Coefficient of Variation 14.1 % (11.5-14.5); RDW Standard Deviation 45.6 fL (36.4-46.3); Red Blood Count 4.11 M/uL (4.70-6.10)
[2024-10-06 06:50] LABS: BUN Creatinine Ratio 22.2 (10-20); Calcium 9.5 mg/dl (8.6-10.3); Creatinine Clr Calc Pharmacy 95.9 ml/min; Potassium 3.8 mmol/L (3.5-5.1)
[2024-10-06] MEDS: FLUTICASONE PROPIONATE NA SPR 16 GM BTL SCH (08:49)
[2024-10-06] MEDS: CETIRIZINE HCL 10 MG TABLET PO SCH (08:50)
[2024-10-06] MEDS: AZITHROMYCIN 250 MG TAB PO SCH (08:50)
--- NOTE | 2024-10-06 09:47 | Pulmonology Progress Note ---
Date of Service October 06, 2024 Assessment & Plan (1) RSV (respiratory syncytial virus pneumonia): (2) Hypogammaglobulinemia: (3) Bilateral pneumonia: Lung location: lower lobe of lung Pneumonia type: due to unspecified organism Qualified Code(s): J18.9 - Pneumonia, unspecified organism (4) GERD (gastroesophageal reflux disease): (5) BPH (benign prostatic hyperplasia): (6) Lymphoma: Plan CT chest 10/05/2024 personally reviewed: Tree-in-bud opacities appreciated in the right middle left lower lobe Dense consolidative process in the right lower lobe Questionable bronchiectasis bilateral lower lobes Minimal right hilar lymphadenopathy -- Multifocal pneumonia Questionable bronchiectasis of the bilateral lower lobes Patient did have a CAT scan done August 2023, official report did not report of any bronchiectasis in the lower lobes Procalcitonin 0.26 Nasal MRSA negative Respiratory BioFire negative for everything except for RSV -- Childhood history asthma Not on any inhalers at home --History of B-cell lymphoma s/p stem cell transplant 2018, relapsed s/p car-T cell therapy and chemo 2020 Taking acyclovir 800 mg twice daily for suppressive therapy as he gets herpes around the mouth when he is off of it --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 No plans for bronchoscopy right now unless there is worsening in the next couple of days Will need a repeat CT chest in 6-8 weeks Please note the above document was generated using voice recognition software. It may contain grammatical, syntax or spelling errors.Any formal questions or concerns about the content, text or information contained within the body of this dictation should be directly addressed to the provider for clarification. Admission and Anticipated Discharge Date Admission Date: October 05, 2024 Subjective Patient seen and examined at bedside. No acute distress, no adverse events overnight Denied any chest pain Has still been coughing, bringing up little bit of clear phlegm No chest pain. Overall he says he is feeling better since he came to the hospital Has been afebrile Fair appetite, no nausea vomiting Review of Systems 2 Review of Systems: All systems reviewed & are unremarkable except as noted in Subjective Physical Exam 2 Physical Exam: Constitutional: No acute distress HEENT: EOMI, PERRLA, soft raspy voice Respiratory system: Decreased air entry bilaterally, minimal expiratory wheeze bilaterally, positive rhonchi, positive crackles bilaterally CVS: S1-S2 positive, no murmurs or gallops Abdomen: Soft, nontender, nondistended, positive bowel sounds x4 Extremities: +2 pulses bilaterally radialis/ dorsalis pedis, no cyanosis, minimal pitting edema bilateral lower extremity Neuro: Awake alert oriented x3 Psych: Normal mood and affect G/U: No Hansen Skin: no rashes, warm and dry Lymphatic: no cervical or axillary lymphadenopathy Results & Data Results & Data Vital Signs (Past 12 Hours) Vital Signs Temp Pulse Pulse Resp BP Pulse Ox O2 Del Method 10/06/24 07:35 68 18 96 Room Air 10/06/24 07:33 Room Air 10/06/24 07:20 36.4 C L 62 18 114/74 96 Room Air 10/06/24 02:25 36.4 C L 62 18 116/72 95 Room Air 10/06/24 01:01 59 L 10/05/24 23:08 36.5 C 60 16 114/72 95 Room Air, CPAP Laboratory Results 10/06/24 05:55 10/06/24 05:55 PG Care Time/CCT Total # of Minutes Spent Total Time Spent with Patient: Total time spent is greater than 50% in coordination of care (as documented) at patient's floor/unit and/or counseling patient: Coding Level of Care Code 56131 SUB INP/OBS CARE 3/50MIN Diagnoses RSV (respiratory syncytial virus pneumonia) J12.1 Hypogammaglobulinemia D80.1 Bilateral pneumonia J18.9 Lung location: lower lobe of lung Pneumonia type: due to unspecified organism GERD (gastroesophageal reflux disease) K21.9 BPH (benign prostatic hyperplasia) N40.0 Lymphoma C85.90
--- NOTE | 2024-10-06 09:58 | Electrocardiogram Report ---
Test Reason : Blood Pressure : */* mmHG Vent. Rate : 86 BPM Atrial Rate : 86 BPM P-R Int : 218 ms QRS Dur : 114 ms QT Int : 368 ms P-R-T Axes : 54 -53 43 degrees QTcB Int : 440 ms Sinus rhythm with 1st degree A-V block Left axis deviation Non-specific intra-ventricular conduction delay Abnormal ECG When compared with ECG of 27-Apr-2021 19:02, Premature ventricular complexes are no longer Present Confirmed by Yvrose Wetzel ([place]) on 10/06/2024 9:58:02 AM Referred By: REFERRED SELF Confirmed By: Yvrose Wetzel
[2024-10-06] MEDS: ENOXAPARIN INJ 40 MG/0.4 ML SYR SQ SCH (10:28)
[2024-10-06] MEDS: FORMOTEROL 20 MCG/2 ML VIAL INH SCH (13:02)
[2024-10-06] MEDS: BUDESONIDE 0.5 MG/2 ML VIAL (PULMICORT) NEB SCH (13:02)
--- NOTE | 2024-10-06 15:11 | Hospitalist Progress Note ---
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 currently presenting with 10-day history of cough and shortness of breath. He is being managed for the following: Bilateral pneumonia RSV infection Sepsis POA: Secondary to pneumonia. WBC/respiratory rate/lactic acid elevated at presentation. Immunodeficiency/hypogammaglobulinemia, on IV Ig infusion secondary to CAR T- cell therapy History of B-cell lymphoma, status post CAR T-cell therapy, chemotherapy, stem cell therapy, in remission Currently not receiving any treatment for B-cell lymphoma in remission but on IVIG infusions every 2 months at [facility]. Next IV Ig infusion in 2 weeks Also on prophylactic acyclovir PO. MRSA screen negative, respiratory BioFire positive for respiratory syncytial virus. Admitting sputum and blood culture pending, follow. Admitting urine Legionella pending. Status post IVF, lactate normalized. Continue with Zosyn 10/05, azithromycin 10/05. Patient reports feeling better, improving cough somewhat. Pulmonology on board, appreciate recommendation. Patient will need repeat CT scan of the chest in 6 to 8 weeks time. Continue with as needed and scheduled nebs. Incentive spirometer. Flutter valve. Mucinex. Other chronic medical conditions: Continue with/resume home meds as when able. Testicular hypogonadism, status post orchiectomy: Continue topical testosterone Obstructive sleep apnea: On CPAP Mild persistent asthma : On as needed albuterol. Not in exacerbation BPH: Not on any therapy DVT prophylaxis: Lovenox subcu daily CODE STATUS: Full code per patient Disposition: Lives at home with Admission and Anticipated Discharge Date Admission Date: October 05, 2024 Subjective Patient was seen and examined at bedside. Patient was lying in bed, on room air, NAD, resting comfortably. Patient reports improving, but still coughing and bringing of now more of clear sputum. Patient reports eating okay and moving bowels okay, reports feeling better. Physical Exam Physical Exam: General- oriented x 3, not in distress, speaks in sentences with no effort or accessory muscle use Appears weak, hoarse, soft voice Head- atraumatic Eyes- PERRL, EOMI, anicteric ENT- Mild oral thrush Neck- supple, no JVD, no adenopathy, no thyromegaly; carotids +2/2, no bruits appreciated Lungs- Positive scattered rhonchi and crackles bilaterally Heart- normal rate, regular rhythm; no murmur, no gallop, no rub appreciated Abdomen- normal bowel sounds, nondistended, soft, nontender, no masses or hepatosplenomegaly Extremities- no pretibial edema, no calf tenderness; peripheral pulses intact Neuro- alert, oriented x 3; CN 2-12 grossly intact; motor 5/5 bilaterally;sensation 100% on all extremities; no other gross focal neurologic deficits Skin- warm & dry Results & Data Results & Data Vital Signs (Past 12 Hours) Vital Signs Temp Pulse Pulse Resp BP Pulse Ox O2 Del Method 10/06/24 13:56 84 10/06/24 13:02 71 18 96 Room Air 10/06/24 11:49 36.5 C 68 18 116/74 96 Room Air 10/06/24 10:59 67 10/06/24 07:35 68 18 96 Room Air 10/06/24 07:33 Room Air 10/06/24 07:20 36.4 C L 62 18 114/74 96 Room Air (1) Bilateral pneumonia Lung location: lower lobe of lung Pneumonia type: due to unspecified organism Qualified Code(s): J18.9 - Pneumonia, unspecified organism
[2024-10-07 06:21] LABS: Hematocrit (blood only) 33.7 % (42.0-52.0); Hemoglobin 11.4 g/dl (14.0-18.0); Mean Corpuscular Hemoglobin 29.5 pg (25.0-34.0); Mean Corpuscular Hgb Conc 33.8 g/dL (32.0-36.0); Mean Corpuscular Volume 87.3 fL (80.0-100.0); Mean Platelet Volume 9.7 fL (9.4-12.4); Platelet Count 240 K/uL (130-400); RDW Coefficient of Variation 14.2 % (11.5-14.5); RDW Standard Deviation 45.7 fL (36.4-46.3); Red Blood Count 3.86 M/uL (4.70-6.10); White Blood Count 11.42 K/ul (4.8-10.8)
[2024-10-07 06:39] LABS: BUN Creatinine Ratio 18.4 (10-20); Calcium 9.2 mg/dl (8.6-10.3); Creatinine Clr Calc Pharmacy 83.9 ml/min; Phosphorus 3.3 mg/dl (2.5-4.9); Potassium 4.1 mmol/L (3.5-5.1)
--- NOTE | 2024-10-07 08:09 | Pulmonology Progress Note ---
Date of Service October 07, 2024 Assessment & Plan (1) RSV (respiratory syncytial virus pneumonia): (2) Hypogammaglobulinemia: (3) Bilateral pneumonia: Lung location: lower lobe of lung Pneumonia type: due to unspecified organism Qualified Code(s): J18.9 - Pneumonia, unspecified organism (4) GERD (gastroesophageal reflux disease): (5) BPH (benign prostatic hyperplasia): (6) Lymphoma: Plan CT chest 10/05/2024 personally reviewed: Tree-in-bud opacities appreciated in the right middle left lower lobe Dense consolidative process in the right lower lobe Questionable bronchiectasis bilateral lower lobes Minimal right hilar lymphadenopathy -- Multifocal pneumonia Questionable bronchiectasis of the bilateral lower lobes Patient did have a CAT scan done August 2023, official report did not report of any bronchiectasis in the lower lobes Procalcitonin 0.26 Nasal MRSA negative Respiratory BioFire negative for everything except for RSV -- Childhood history asthma Not on any inhalers at home --History of B-cell lymphoma s/p stem cell transplant 2018, relapsed s/p car-T cell therapy and chemo 2020 Taking acyclovir 800 mg twice daily for suppressive therapy as he gets herpes around the mouth when he is off of it --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 He was asking if the frequency of IVIG should be changed. I think it is reasonable thought and thinking about IVIG every month could be thought of I will defer this to his oncologist Admission and Anticipated Discharge Date Admission Date: October 05, 2024 Supervising Physician Co-Signing Physician Notes I saw and evaluated the patient with Jewel Mendosa PA-C, and agree with findings and plan as documented in the note. Patient seen and examined at bedside. No acute distress, notable symptoms overnight He was saturating 97-98% on room air He stated that he is feeling better compared to before. Coughing up clear phlegm. Denies any hemoptysis Hypertonic saline seems to irritate him a lot and he is asking if he can stop using it. Denied any chest pain No unusual headache or blurry vision Has been afebrile Constitutional: No acute distress HEENT: EOMI, PERRLA, soft raspy voice Respiratory system: Decreased air entry bilaterally, no wheeze, positive rhonchi, positive crackles bilaterally CVS: S1-S2 positive, no murmurs or gallops Abdomen: Soft, nontender, nondistended, positive bowel sounds x4 Extremities: +2 pulses bilaterally radialis/ dorsalis pedis, no cyanosis, minimal pitting edema bilateral lower extremity Neuro: Awake alert oriented x3 Psych: Normal mood and affect G/U: No Hansen Plan: Sputum cultures and AFB unremarkable. Given the sputum culture as well as blood culture negative, I think it is reasonable to de-escalate the antibiotic from Zosyn to Rocephin Continue with atypical coverage Patient's wheezing has improved, Continue with nebulized Perforomist and Budesonide. Recommend even on discharge to be given Symbicort 80-4.5 mcg 2 puffs twice a day Will d/c hypertonic saline as he as not tolerated this well and has been more irritating than anything. Continue with Mucinex OOB with ambulation as tolerated. No plans for bronchoscopy right now unless there is worsening in the next couple of days Will need a repeat CT chest in 6-8 weeks Please note the above document was generated using voice recognition software. It may contain grammatical, syntax or spelling errors.Any formal questions or concerns about the content, text or information contained within the body of this dictation should be directly addressed to the provider for clarification. Subjective Patient was seen and evaluated at bedside. He reports that he feels as though his symptoms are improving. He does complain of uncomfortable cough during nebulized treatments in the morning. He reports no sputum production. Otherwise, he is less short of breath and feels better overall. Review of Systems 2 Review of Systems: As per HPI. Physical Exam 2 Physical Exam: VITAL SIGNS Vital signs and nursing notes were reviewed. GENERAL 64-year-old male appearing his stated age who is in no acute distress. Communicates well with provider and answers questions appropriately. SKIN Without rashes or lesions. NOSE Midline and without cyanosis. MOUTH/OROPHARYNX Without perioral cyanosis. NECK Neck with FROM. LUNGS Chest wall evaluation demonstrates normal chest wall A:P diameter. Auscultation reveals rhonchi at the LEFT sided lung base. Slight expiratory wheezes noted. No rales. CARDIAC RRR with S1/S2. No murmur, rubs, or gallops appreciated. EXTREMITIES Nail clubbing not present. No peripheral cyanosis. No pretibial edema present. +3/5 radial palpated throughout. PSYCH A&Ox3 and cooperates fully with examiner. Pt is very pleasant and interacts well with examiner. Skin: no rashes, warm and dry Lymphatic: no cervical or axillary lymphadenopathy Results & Data Results & Data Vital Signs (Past 12 Hours) Vital Signs Temp Pulse Pulse Resp BP Pulse Ox O2 Del Method 10/07/24 07:47 Room Air 10/07/24 07:24 58 L 18 95 Room Air 10/07/24 04:01 36.5 C 62 18 125/75 95 CPAP 10/07/24 02:35 53 L 18 96 Room Air 10/06/24 23:56 58 L 10/06/24 23:21 36.4 C L 56 L 18 113/60 97 Room Air Laboratory Results 10/07/24 05:39 10/07/24 05:39 PG Care Time/CCT Total # of Minutes Spent Total Time Spent with Patient: Total time spent is greater than 50% in coordination of care (as documented) at patient's floor/unit and/or counseling patient: Coding Level of Care Code 47377 SUB INP/OBS CARE 2/35MIN Diagnoses RSV (respiratory syncytial virus pneumonia) J12.1 Hypogammaglobulinemia D80.1 Bilateral pneumonia J18.9 Lung location: lower lobe of lung Pneumonia type: due to unspecified organism GERD (gastroesophageal reflux disease) K21.9 BPH (benign prostatic hyperplasia) N40.0 Lymphoma C85.90
[2024-10-07 12:39] VITALS: BP 125/69; TEMP 97.7
[2024-10-07 12:59] VITALS: RESP 16
--- NOTE | 2024-10-07 13:05 | Discharge Summary ---
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 currently presenting with 10-day history of cough and shortness of breath. History obtained from patient and his Miryam at the bedside. Early in September, patient had an episode of sinus congestion/bronchitis and was given a course of doxycycline. Symptoms of frontal headache, nasal drainage, cough and sputum production improved but not completely resolved as per patient. About 10 days ago, patient again started to have worsening of headache, nasal congestion, nasal drainage, cough with thick sputum production. He was exposed to a grandchild with croup and managed his symptoms as a possible viral upper respiratory infection with [id number] medications including Tylenol, Mucinex, NyQuil. Symptoms continue to progress with progressive weakness, poor appetite, subjective feeling of being very cold. Today presented to the urgent care which advised ER consult. At the ER, patient received with blood pressure of 120/65, heart rate of 97, respiratory 20, temperature 36.6, 92% on room air. WBC 22,000 Chest x-ray showing bilateral pneumonia BioFire ordered, MRSA swab ordered: Pending Patient given Decadron, IV Zosyn, IV NSS and Hycodan. Hospitalist consulted for admission. On exam, patient seen resting in bed, on room air, saturating 97%.. He is comfortable, not in distress, oriented x 3, answering questions appropriately, very pleasant. He denies active shortness of breath, chest pain, headache, sore throat, nausea or vomiting, abdominal pain, problems with urination, diarrhea. Admission Exam Per Admitting Provider General- oriented x 3, not in distress, speaks in sentences with no effort or accessory muscle use Appears weak, hoarse, soft voice Head- atraumatic Eyes- PERRL, EOMI, anicteric ENT- Mild oral thrush Neck- supple, no JVD, no adenopathy, no thyromegaly; carotids +2/2, no bruits appreciated Lungs- Positive scattered rhonchi bilaterally, no wheezing, good air entry bilaterally Heart- normal rate, regular rhythm; no murmur, no gallop, no rub appreciated Abdomen- normal bowel sounds, nondistended, soft, nontender, no masses or hepatosplenomegaly Extremities- no pretibial edema, no calf tenderness; peripheral pulses intact Neuro- alert, oriented x 3; CN 2-12 grossly intact; motor 5/5 bilaterally;sensation 100% on all extremities; no other gross focal neurologic deficits Skin- warm & dry Principal Diagnosis Bilateral pneumonia RSV infection Sepsis POA History of immunodeficiency and history of B-cell lymphoma Discharge Exam General- oriented x 3, not in distress, speaks in sentences with no effort or accessory muscle use Appears weak, hoarse, soft voice Head- atraumatic Eyes- PERRL, EOMI, anicteric ENT- Mild oral thrush Neck- supple, no JVD, no adenopathy, no thyromegaly; carotids +2/2, no bruits appreciated Lungs- Positive scattered rhonchi and crackles bilaterally has improved. Heart- normal rate, regular rhythm; no murmur, no gallop, no rub appreciated Abdomen- normal bowel sounds, nondistended, soft, nontender, no masses or hepatosplenomegaly Extremities- no pretibial edema, no calf tenderness; peripheral pulses intact Neuro- alert, oriented x 3; CN 2-12 grossly intact; motor 5/5 bilaterally;sensation 100% on all extremities; no other gross focal neurologic deficits Skin- warm & dry Discharge Data Allergies Allergy/AdvReac Type Severity Reaction Status Date / Time cat dander Allergy Intermediate SNEEZING Verified 10/05/24 10:42 CONGESTION dog dander Allergy Intermediate SNEEZING, Verified 10/05/24 10:42 CONGESTION ADHESIVE Allergy Intermediate SKIN Uncoded 10/05/24 10:42 IRRITATION POLLEN Allergy Intermediate ITCHY Uncoded 10/05/24 10:42 EYES, SNEEZING CONGESTION Consultations 10/05/24 10:43 ED Decision to Admit Stat 10/05/24 12:45 Consult Pulmonology Routine Ordered Studies 10/05/24 11:25 CT chest diagnostic wo con Routine Hospital Course (1) Bilateral pneumonia: (2) RSV (respiratory syncytial virus pneumonia): (3) Hypogammaglobulinemia: 64-year-old male with history of B-cell lymphoma with [employer]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 currently presenting with 10-day history of cough and shortness of breath. He was managed for the following: Bilateral pneumonia RSV infection Sepsis POA: Secondary to pneumonia. WBC/respiratory rate/lactic acid elevated at presentation. Immunodeficiency/hypogammaglobulinemia, on IV Ig infusion secondary to CAR T- cell therapy History of B-cell lymphoma, status post CAR T-cell therapy, chemotherapy, stem cell therapy, in remission Currently not receiving any treatment for B-cell lymphoma in remission but on IVIG infusions every 2 months at [facility]. Next IV Ig infusion in 2 weeks Also on prophylactic acyclovir PO. MRSA screen negative, respiratory BioFire positive for respiratory syncytial virus. Admitting sputum and blood culture pending, follow. Admitting urine Legionella pending. Status post IVF, lactate normalized. Continue with Zosyn 10/05, azithromycin 10/05. To p.o. antibiotic on discharge. Patient reports feeling better, improving cough . Patient is hemodynamically stable. Discussed with pulmonology, pako for discharge. Patient will need repeat CT scan of the chest in 6 to 8 weeks time. Continue with as needed and scheduled nebs. Incentive spirometer. Flutter valve. Mucinex. Other chronic medical conditions: Continue with/resume home meds as when able. Testicular hypogonadism, status post orchiectomy: Continue topical testosterone Obstructive sleep apnea: On CPAP Mild persistent asthma : On as needed albuterol. Not in exacerbation BPH: Not on any therapy DVT prophylaxis: Lovenox subcu daily CODE STATUS: Full code per patient Disposition: Lives at home with Patient's was present at bedside, updated on plan of care. Updated on my discussion with pulmonology and plan for discharge today. They are happy. Patient is being discharged with following instruction at the point of discharge: Follow-up with your primary care physician within a week time and likely you will need labs CBC/CMP/magnesium/phosphorus. Your treated for bilateral pneumonia and respiratory syncytial virus infection. Pulmonology evaluated you while in hospital. You will be discharged on antibiotic to complete the course for pneumonia. You will need repeat CT scan of the chest in 6 to 8 weeks time upon discharge, coordinate with your PCP office to set up the test. Take your medications as prescribed. Please make sure that you are able to get your medications today by calling your pharmacy before you leave the hospital so that your treatment continuity is not broken. Home Health Attestation I certify that this patient is under my care and that I, or a physicians business development assistant working with me, had a face to-face encounter that meets the home health vssu-it-ikki encounter requirements with this patient. The encounter with the patient was in whole, or in part, for the following medical condition, which is the primary reason for home health care (list medical condition): I certify that, based on my findings, the following services are medically necessary home health services: My clinical findings support the need for the above services because: Further, I certify that my clinical findings support that this patient is h omebound (i.e. absences from home require considerable and taxing effort and are for medical reasons or jehovah's witness services or infrequently or of short duration when for other reasons) because: Certification for Home Health Services: Based on the above findings, I certify that this patient is confined to the home and needs intermittent long term care, physical therapy and/or speech therapy or continues to need occupational therapy. The patient is under my care, and I have initiated the establishment of the plan of care. This patient will be followed by a physician who will periodically review the plan of care. Total Time Total Time Spent Total Time Spent (In Minutes): 35 Discharge Plan Discharge Items Patient Disposition: Home - Self-Care Reason For Visit: PNEUMONIA, RSV Discharge Diagnosis: Bilateral pneumonia RSV infection Sepsis POA History of immunodeficiency and history of B-cell lymphoma Activity: Resume your previous activity Non-emergency contact: Primary Care Provider Call non-emergency contact if: you have any medication questions and your symptoms worsen Follow-up/Referrals: Cristhian Johnson MD [Primary Care Provider] - Diet: Regular Addtl Attending Provider Instructions: Follow-up with your primary care physician within a week time and likely you will need labs CBC/CMP/magnesium/phosphorus. Your treated for bilateral pneumonia and respiratory syncytial virus infection. Pulmonology evaluated you while in hospital. You will be discharged on antibiotic to complete the course for pneumonia. You will need repeat CT scan of the chest in 6 to 8 weeks time upon discharge, coordinate with your PCP office to set up the test. Take your medications as prescribed. Please make sure that you are able to get your medications today by calling your pharmacy before you leave the hospital so that your treatment continuity is not broken. Pending Studies at Discharge: Yes Stand-Alone Forms: My [facility], Smoking Cessation Medications and DC Order Prescriptions: New amoxicillin-pot clavulanate 875-125 mg Tablet 1 tab PO BIDM 8 Days Qty: 16 0RF azithromycin 250 mg Tablet 250 mg PO QAM 2 Days Qty: 2 0RF budesonide-formoterol [Symbicort] 80-4.5 mcg/actuation HFA aerosol inhaler 2 puff inhalation BID Qty: 10.2 0RF Advanced Probiotic 625 mg (10 billion cell) Capsule 1 cap PO DAILY 14 Days Qty: 14 0RF guaifenesin [Mucinex] 600 mg Tablet Extended Release 12hr 1,200 mg PO Q12 5 Days Qty: 20 0RF Continued acetaminophen [Tylenol] 325 mg Tablet 325 mg PO Q6H PRN (Reason: Pain) ondansetron HCl 8 mg Tablet 8 mg PO Q8H PRN (Reason: Nausea) acyclovir 800 mg tablet 800 mg PO BID albuterol sulfate 90 mcg/actuation Hfa Aerosol Inhaler 2 puff INHALATION Q4H PRN (Reason: Shortness Of Breath Or Wheezing) cetirizine [Zyrtec] 10 mg Tablet 10 mg PO DAILY fluticasone propionate 50 mcg/actuation spray,suspension 2 spray INTRANASAL QAM testosterone 20.25 mg/1.25 gram (1.62 %) gel in metered-dose pump 3 pump topical DAILY Rx Instructions: 3 A DAY Discontinued fluticasone furoate-vilanterol [Breo Ellipta] 100-25 mcg/dose blister with device 1 inh INHALATION HS PRN (Reason: SOB/WHEEZING/COUGH) Discharge Orders: Discharge Order (Routine); Ordered 10/07/24 Ordered By: Tara Woodard Admission Data Admit Date/Time: 10/05/24 11:25 Attending Provider: Tara Woodard Admit Provider: Addi Weiss Primary Care Provider: Cristhian Johnson Other Providers: Addi Weiss; Jewel Mendosa; Julius Merchant; Palmer Osorio; Cameron Pringle; Olga Boyle.; Donita Jackson; Memo Cortes; Nigel Heredia; Lisette Urbano
[2024-10-07 13:47] VITALS: O2SAT 97
[2024-10-07] MEDS: ADVANCED PROBIOTIC 625 MG CAPSULE PO SCH (13:59)
[2024-10-07] MEDS ORDERED: PATIENT'S OWN CONTROLLED MED 2 EXT SCH (14:00)
[2024-10-07] MEDS ORDERED: TESTOSTERONE GEL TOP SCH (14:00)
[2024-10-07 14:14] VITALS: PULSE 65
[2024-10-07] MEDS ORDERED: AMOXICILLIN/CLAVULANATE 875 MG TAB PO SCH (17:00)
== END 2024-10-07 14:30 | disposition home or self-care (01) | DRG 871 ==
LOC: ED 09:25 → SUATTDRO 11:25 → EDINP 11:25 → 2S 14:50